=== PATIENT | male | born 1955 | race Caucasian/White ===

== ENCOUNTER 2024-05-07 08:11 | Outpatient (OUT) | payer MEDICARE, SELFPAY ==
--- NOTE | 2024-05-07 08:26 | XR_ITS ---
[address] [address] Patient Name: NATALYA PAREDES MRN: [id number] date: 1955 Sex: M Assigned Patient Location: RAD Current Patient Location: LAB Accession/Order Number: [id number] Exam Date: 05/07/2024 08:28 Report Date: 05/07/2024 13:18 At the request of: ELLYN TRIPP Procedure: XR knee LT 3V PROCEDURE: XR knee LT 3V COMPARISON: None. HISTORY: Post Traumatic Osteoarthritis Left Knee FINDINGS: BONES:No acute fracture or dislocation. Minimal osteoarthropathy with marginal osteophyte formation. SOFT TISSUES:Negative. No visible soft tissue swelling. EFFUSION:None visible. OTHER: Negative. XR/XR knee LT 3V IMPRESSION: Minimal osteoarthritis Electronically authenticated by: MECHE SANCHEZ Date: 05/07/2024 13:18
== END 2024-05-07 08:12 | disposition home or self-care (01) ==
LOC: RAD 08:15
PROVIDERS: PCP Internal Medicine; Visit Provider Internal Medicine
DX: M17.32 Unilateral post-traumatic osteoarthritis, left knee (principal)
CPT/HCPCS: 73562

== ENCOUNTER 2024-05-09 06:33 | Outpatient (OUT) | payer MEDICARE, SELFPAY ==
[2024-05-09 07:44] LABS: Creatinine Urine Random 120.08 mg/dL (20.00-300.00); Microalbum Creatinine Ratio Ur 117.4 mg/g (0.0-29.9); Microalbumin Urine Random 14.1 mg/dL (<=30.0)
[2024-05-09 07:53] LABS: Albumin Level 2.5 g/dL (3.4-5.0); Anion Gap 14.9; BUN Creatinine Ratio 18.1; Calcium 8.2 mg/dL (8.5-10.1); Carbon Dioxide 22.8 mmol/L (21.0-32.0); Chloride 108 mmol/L (98-107); Cholesterol 229 mg/dL (<=200); Estimated GFR (African America 24 (>=60); Estimated GFR (Non-African Ame 20 (>=60); Glucose 219 mg/dL (74-106); HDL Cholesterol 46 mg/dL (40-60); Phosphorus 4.3 mg/dL (2.6-4.7); Potassium 3.7 mmol/L (3.5-5.1); Sodium 142 mmol/L (136-145); Thyroid Stimulating Hormone 5.954 uIU/mL (0.358-3.740); Triglycerides 243 mg/dL (<=150); VLDL CHOLESTEROL 48.6 mg/dL
[2024-05-10 14:11] LABS: C-Peptide, Serum 3.2 ng/mL (1.1-4.4)
== END 2024-05-09 06:34 | disposition home or self-care (01) ==
LOC: LAB 06:34
PROVIDERS: PCP Internal Medicine; Visit Provider Internal Medicine
DX: E78.2 Mixed hyperlipidemia (principal); E11.65 Type 2 diabetes mellitus with hyperglycemia; Z79.4 Long term (current) use of insulin; I10 Essential (primary) hypertension; E55.9 Vitamin D deficiency, unspecified
CPT/HCPCS: 36415; 80061; 80069; 82043; 82306; 82570; 84443; 84681

== ENCOUNTER 2024-10-03 08:51 | Outpatient (OUT) | payer MEDICARE, SELFPAY ==
--- NOTE | 2024-10-03 08:54 | US_ITS ---
[place] [id number] Patient Name: NATALYA PAREDES MRN: [id number] date: 1955 Sex: M Assigned Patient Location: Current Patient Location: Accession/Order Number: [id number] Exam Date: 10/03/2024 09:00 Report Date: 10/04/2024 04:57 At the request of: YAA SALINAS Procedure: US renal bladder EXAMINATION: US renal bladder HISTORY: Kidney Disease, BPH With Obstruction COMPARISON: CT abdomen pelvis 10/23/2019 TECHNIQUE: Ultrasound examination was performed of the kidneys and urinary bladder. FINDINGS: RIGHT KIDNEY: No evidence of pelvocaliectasis, mass, or calculi. Normal parenchymal echogenicity. No significant cortical thinning. Color Doppler demonstrates blood flow within the kidney. Kidney: 8.9 x 5.4 x 5.7 cm LEFT KIDNEY: No evidence of pelvocaliectasis, mass, or calculi. Normal parenchymal echogenicity. No significant cortical thinning. Color Doppler demonstrates blood flow within the kidney. Kidney: 9.6 x 5.4 x 6.1 cm. BLADDER: No visible wall thickening, mass, or calculi. Post void residual: 15 mL. URETERAL JETS: Visualized bilaterally. OTHER: Large heterogeneous and irregular prostate, at least 7.1 x 4.8 x 5.1 cm. US/US renal bladder IMPRESSION: 1. Normal ultrasound appearance of the kidneys. 2. Large heterogeneous prostate protruding into the bladder. Electronically authenticated by: NURYS KHAN Date: 10/04/2024 04:57
--- OUTSIDE RECORDS SUMMARY | 2024-10-03 08:57 | XMS_ITS | CCD ---
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 include: ? Inability to get an erection. ? Lack of enough hardness of the erection to allow penetration. ? Loss of erection before sex is finished. What are the causes? This condition may be caused by: ? Physical causes, such as: ? Artery problems. This may include heart disease, high blood pressure, atherosclerosis, and diabetes. ? Hormonal problems, such as low testosterone. ? Obesity. ? Nerve problems. This may include back or pelvic injuries, multiple sclerosis, Parkinson's disease, spinal cord injury, and stroke. ? Certain medicines, such as: ? Pain relievers. ? Antidepressants. ? Blood pressure medicines and water pills (diuretics). ? Cancer medicines. ? Antihistamines. ? Muscle relaxants. ? Lifestyle factors, such as: ? Use of drugs such as marijuana, cocaine, or opioids. ? Excessive use of alcohol. ? Smoking. ? Lack of physical activity or exercise. ? Psychological causes, such as: ? Anxiety or stress. ? Sadness or depression. ? Exhaustion. ? Fear about sexual performance. ? Guilt. What are the signs or symptoms? Symptoms of this condition include: ? Inability to get an erection. ? Lack of enough hardness of the erection to allow penetration. ? Loss of the erection before sex is finished. ? Sometimes having normal erections, but with frequent unsatisfactory episodes. ? Low sexual satisfaction in either partner due to erection problems. ? A curved penis occurring with erection. The curve may cause pain, or the penis may be too curved to allow for intercourse. ? Never having nighttime or morning erections. How is this diagnosed? This condition is often diagnosed by: ? Performing a physical exam to find other diseases or specific problems with the penis. ? Asking you detailed questions about the problem. ? Doing tests, such as: ? Blood tests to check for diabetes mellitus or high cholesterol, or to measure hormone levels. ? Other tests to check for underlying health conditions. ? An ultrasound exam to check for scarring. ? A test to check blood flow to the penis. ? Doing a sleep study at home to measure nighttime erections. How is this treated? This condition may be treated by: ? Medicines, such as: ? Medicine taken by mouth to help you achieve an erection (oral medicine). ? Hormone replacement therapy to replace low testosterone levels. ? Medicine that is injected into the penis. Your health care provider may instruct you how to give yourself these injections at home. ? Medicine that is delivered with a short applicator tube. The tube is inserted into the opening at the tip of the penis, which is the opening of the urethra. A tiny pellet of medicine is put in the urethra. The pellet dissolves and enhances erectile function. This is also called MUSE (medicated urethral system for erections) therapy. ? Vacuum pump. This is a pump with a ring on it. The pump and ring are placed on the penis and used to create pressure that helps the penis become erect. ? Penile implant surgery. In this procedure, you may receive: ? An inflatable implant. This consists of cylinders, a pump, and a reservoir. The cylinders can be inflated with a fluid that helps to create an erection, and they can be deflated after intercourse. ? A semi-rigid implant. This consists of two silicone rubber rods. The rods provide some rigidity. They are also flexible, so the penis can both curve downward in its normal position and become straight for sexual intercourse. ? Blood vessel surgery to improve blood flow to the penis. During this procedure, a blood vessel from a different part of the body is placed into the penis to allow blood to flow around (bypass) damaged or blocked blood vessels. ? Lifestyle changes, such as exercising more, losing weight, and quitting smoking. Follow these instructions at home: Medicines ? Take qcgu-izn-covdcmx and prescription medicines only as told by your health care provider. Do not increase the dosage without first discussing it with your health care provider. ? If you are using self-injections, do injections as directed by your health care provider. Make sure you avoid any veins that are on the surface of the penis. After giving an injection, apply pressure to the injection site for 5 minutes. ? Talk to your health care provider about how to prevent headaches while taking ED medicines. These medicines may cause a sudden headache due to the increase in blood flow in your body. General instructions ? Exercise regularly, as directed by your health care provider. Work with your health care provider to lose weight, if needed. ? Do not use any products that contain nicotine or tobacco. These products include cig (more content not included)... [facility] 11-30-2023 Screens [id number]. 00TIFF Normal [facility] Screens [id number]. 00TIFF [facility] Urology Office/Clinic Noteon 11-30-2023 Urology Office/Clinic Note Chief Complaint 1 month F/U with P[facility] HPI Staff 1 month F/U with [facility] Previous DX; BPH, * Started Tamsulosin 0.4 mg qPM, He still taking he is not sure if it is working, Elevated PSA, Microhematuria, Gross, hematuria PSA's 16 - 13.0 03/17/22 - 6.01 10/06/22 - 5.5 & 45%, PSAD 0.05 IPSS 10 ENRIQUE 4 PVR 70 Dysuria: _denies Incomplete bladder emptying: most times Hematuria: _denies visible blood Frequency: 3-4x daily Urgency: denies Nocturia: 3x nightly Stream: occasionally hesitation, normal stream Leaking: denies Post void dripping: yes Wearing pads/ Depends: denies Urge incontinence: denies Stress incontinence: denies Incontinence without Sensory Awareness: _denies Abdominal pain: _a little bit on right side occasionally Flank pain: denies Sexual complaints: _denies History of Present Illness Tests reviewed: reviewed UA, PVR I have reviewed the previous health record information and history for this patient from Dr. Aguilar. I have reviewed and verified the staff HPI to be accurate for this encounter. Review of Systems PHQ Score Initial Depression Screen Score: 0 SCORE ROS - Provider Constitutional: denies weight loss, denies hot flashes. Eyes: denies eye problems. Gastrointestinal: denies nausea, denies vomiting. Cardiovascular: denies chest pain or angina. Integumentary: no dryness Musculoskeletal: denies musculoskeletal symptoms. ENMT: denies otolaryngeal symptoms. Respiratory: no shortness of breath. Heme/Lymph: denies easy bleeding tendency, denies easy bruising tendency. Psychiatric: no confusion, no anxiety. Genitourinary: See HPI. Physical Exam Vitals & Measurements BP: 124/84 HT: 70 in HT: 179 cm WT: 104 kg WT: 228.8 lb BMI: 32.46 General Appearance: alert, no distress, well nourished, well developed male. Genitourinary: Flank Pain: none. Bladder: nonpalpable. Assessment/Plan 68 year old male with hx BPH with LUTS, elevated PSA, microscopic hematuria, and gross hematuria 6 wks after starting blood thinners. Here for follow up. 1. BPH with obstruction/lower urinary tract symptoms (N40.1: Benign prostatic hyperplasia with lower urinary tract symptoms) S/p TURP 11/10/[address] Toribio - benign CT 09/09/2022 there is moderate prominence of the prostate. there is some nodularity noted along the base of the bladder, which may represent a bladder tumor or the enlarged prostate. cystoscopic correlation suggested. S/P Cysto 01/17/23 - severe bilobar hypertrophy L>>R. Significant L lateral lobe intravesical protrusion 3-4cm. IPSS 10 (10), QoL (3). UA today negative for infection. PVR today 70 (108)cc Did not previously restart Finasteride due to pt's PCP concern for SEs. Recommended pt to restart Tamsulosin at prior OV. States he has been taking this, no SE, but still has bothersome urinary sxs, improved from prior. Re-discussed restarting Finasteride to shrink prostate over time vs procedures (TURP vs simple prostatectomy given large intravesical component and volume). Re-discussed possible SEs. Low dose daily cialis also discussed. Pt states he would like to try medication to shrink prostate. Discussed how tamsulosin and finasteride work better together. -Begin Finasteride 5 mg daily. Risks/benefits discussed -Cont Tamsulosin 0.4 mg daily. -Timed voids 2. Erectile dysfunction (N52.9: Male erectile dysfunction, unspecified) ENRIQUE 4. Discussed options for ED, including oral medications, erection pumps, MUSE intraurethral pellet, intracorporal injection therapy, and surgical options. Advised pt Cialis would help with ED and BPH sxs. Discussed ED sxs require more on-demand effect, so Cialis is recommended prn rather than low dose daily based on his compliants. Discussed the medication side effects, and the patient will monitor closely for these, as well as for symptom improvement. If severe side effects occur, the medication should be stopped and the office notified. -Begin Cialis 10mg prn. Max 20 mg 3. Elevated PSA (R97.20: Elevated prostate specific antigen [PSA]) PSA 10/21/16 - 13.0 03/17/22 - 6.01 10/06/22 - 5.5 & 45%, PSAD 0.05 Prostate MRI 12/13/22 - Volume 108cc. No evidence of prostate malignancy. BPH changes. States PCP checks PSA. Advised pt to have this checked annually. No fam hx of prostate ca. -Cont routine prostate cancer screening with PCP given neg mri and improved PSA per above 4. Microhematuria (R31.29: Other microscopic hematuria) S/p Cysto 01/17/23. Micro UA 10/05/22 - 0-3 RBCs. Cytology 10/05/22 - neg. UA today shows trace-lysed blood. Denies visible blood. Advised pt trace blood is not concerning. No indication for further workup given prior was neg. -Cont routine UAs 5. Gross hematuria (R31.0: Gross hematuria) 6 wks after starting blood thinners (recent LLE DVT, on for 6 mths at least). S/p Cysto 01/17/23 - No bladder mass on cysto, likely due to large intravesical prostate Micro UA 10/05/22 - 0-3 RBCs. Cytology (more content not included)... [facility] Comment on above: Result Comment: Elec tronically Signed By: Betty Aguilar MD\.br\Date and Time Signed: 11/30/23 12:08 EST\.br\Electronically Co-Signed By: Maureen Becker\.br\Date and Time Co-Signed: 11/30/23 11:37 EST [place] 10-13-2023 Screens [id number]#1.0 0TIFF [facility] Ambulatory Visit Summaryon 1 12-13-2022 Ambulatory Visit Summary REGGIE DAILEY NATALYA Crump :1955 Visit Date:10/12/2023 Ambulatory Visit Instructions Your Diagnosis BPH with obstruction/lower urinary tract symptoms Elevated PSA Microhematuria Tests Performed Urnls Dip Stick Auto w/o Microscopy POC 70024 Your Care Team Attending Physician - Betty Aguilar MD Primary Care Physician - AYSSINE BECKER MD Referring Physician - Betty Aguilar MD This Is Your Medications List tamsulosin (tamsulosin 0.4 mg Cap) Contact prescribing physician if questions or concerns amlodipine (amLODIPine 5 mg Tab) insulin isophane-insulin regular (ReliOn/Novolin 70/30 subcutaneous suspension) torsemide (torsemide 20 mg Tab) [Image Removed: STOP]Stop taking these medications finasteride (finasteride 5 mg Tab) Procedures Performed Cystoscopy (01/17/2023), CEIOL - Cataract extraction and insertion of intraocular lens (06/15/2022), TURP - Transurethral resection of prostate (11/10/2016). Discharge Vitals Blood Pressure 136/84 Height 179 cm Height 70 in Weight 104 kg Weight 228.8 lb BMI 32.46 What to do next Scheduled Follow-Up Appointments Tuesday 10:30 AM EST With: Betty Aguilar MD Where: [facility] Patient Educationon 10-12-20 23 Patient Education Urology Benign Prostatic Hyperplasia Benign prostatic hyperplasia (BPH) is an enlarged prostate gland that is caused by the normal aging process. The prostate may get bigger as a man gets older. The condition is not caused by cancer. The prostate is a walnut-sized gland that is involved in the production of semen. It is located in front of the rectum and below the bladder. The bladder stores urine. The urethra carries stored urine out of the body. An enlarged prostate can press on the urethra. This can make it harder to pass urine. The buildup of urine in the bladder can cause infection. Back pressure and infection may progress to bladder damage and kidney (renal) failure. What are the causes? This condition is part of the normal aging process. However, not all men develop problems from this condition. If the prostate enlarges away from the urethra, urine flow will not be blocked. If it enlarges toward the urethra and compresses it, there will be problems passing urine. What increases the risk? This condition is more likely to develop in men older than 50 years. What are the signs or symptoms? Symptoms of this condition include: ? Getting up often during the night to urinate. ? Needing to urinate frequently during the day. ? Difficulty starting urine flow. ? Decrease in size and strength of your urine stream. ? Leaking (dribbling) after urinating. ? Inability to pass urine. This needs immediate treatment. ? Inability to completely empty your bladder. ? Pain when you pass urine. This is more common if there is also an infection. ? Urinary tract infection (UTI). How is this diagnosed? This condition is diagnosed based on your medical history, a physical exam, and your symptoms. Tests will also be done, such as: ? A post-void bladder scan. This measures any amount of urine that may remain in your bladder after you finish urinating. ? A digital rectal exam. In a rectal exam, your health care provider checks your prostate by putting a lubricated, gloved finger into your rectum to feel the back of your prostate gland. This exam detects the size of your gland and any abnormal lumps or growths. ? An exam of your urine (urinalysis). ? A prostate specific antigen (PSA) screening. This is a blood test used to screen for prostate cancer. ? An ultrasound. This test uses sound waves to electronically produce a picture of your prostate gland. Your health care provider may refer you to a specialist in kidney and prostate diseases (urologist). How is this treated? Once symptoms begin, your health care provider will monitor your condition (active surveillance or watchful waiting). Treatment for this condition will depend on the severity of your condition. Treatment may include: ? Observation and yearly exams. This may be the only treatment needed if your condition and symptoms are mild. ? Medicines to relieve your symptoms, including: ? Medicines to shrink the prostate. ? Medicines to relax the muscle of the prostate. ? Surgery in severe cases. Surgery may include: ? Prostatectomy. In this procedure, the prostate tissue is removed completely through an open incision or with a laparoscope or robotics. ? Transurethral resection of the prostate (TURP). In this procedure, a tool is inserted through the opening at the tip of the penis (urethra). It is used to cut away tissue of the inner core of the prostate. The pieces are removed through the same opening of the penis. This removes the blockage. ? Transurethral incision (TUIP). In this procedure, small cuts are made in the prostate. This lessens the prostate's pressure on the urethra. ? Transurethral microwave thermotherapy (TUMT). This procedure uses microwaves to create heat. The heat destroys and removes a small amount of prostate tissue. ? Transurethral needle ablation (TUNA). This procedure uses radio frequencies to destroy and remove a small amount of prostate tissue. ? Interstitial laser coagulation (ILC). This procedure uses a laser to destroy and remove a small amount of prostate tissue. ? Transurethral electrovaporization (TUVP). This procedure uses electrodes to destroy and remove a small amount of prostate tissue. ? Prostatic urethral lift. This procedure inserts an implant to push the lobes of the prostate away from the urethra. Follow these instructions at home: ? Take xhgh-tlj-upayhwl and prescription medicines only as told by your health care provider. ? Monitor your symptoms for any changes. Contact your health care provider with any changes. ? Avoid drinking large amounts of liquid before going to bed or out in public. ? Avoid or reduce how much caffeine or alcohol you drink. ? Give yourself time when you urinate. ? Keep all follow-up visits. This is important. Contact a health care provider if: ? You have unexplained back pain. ? Your symptoms do not get better with treatment. ? You develop side effects from the medicine (more content not included)... [facility] Urology Office/Clinic Noteon 10-12-2023 Urology Office/Clinic Note Chief Complaint S/p tp Cysto HPI Staff Pt last seen in our office 10/05/22 by KIERA as a new pt. DX: Elevated PSA, Microscopic Hematuria, Abnormal CT & BPH. S/P TURP 11/10/16 by DLS NEG Cytology 10/05/22 PSA F/T 10/06/22- 5.5 & 45% MRI Prostate 12/13/22 S/P Cysto 01/17/23 No issues with this *Pt started on Finasteride & Tamsulosin therapy at this time, Only took these for a week ,His PCP told him not to take it because he was worried side effects of these medication IPSS 10 ENRIQUE N/A Dysuria: denies Incomplete bladder emptying: denies Hematuria: denies visible blood Frequency: every couple hours Urgency: denies Nocturia: 2-3x nightly Stream: denies hesitation, normal stream Leaking: denies Post void dripping: denies Wearing pads/ Depends: denies Urge incontinence: denies Stress incontinence: denies Incontinence without Sensory Awareness: denies Abdominal pain: Right side pain started 2 months ago, off and on pain Flank pain: denies Sexual complaints: N/A History of Present Illness Tests reviewed: reviewed UA, PVR I have reviewed the previous health record information and history for this patient from CLARISA White and Dr. Aguilar I have reviewed and verified the staff HPI to be accurate for this encounter. Review of Systems PHQ Score Initial Depression Screen Score: 0 SCORE ROS - Provider Constitutional: denies weight loss, denies hot flashes. Eyes: denies eye problems. Gastrointestinal: denies nausea, denies vomiting. Cardiovascular: denies chest pain or angina. Integumentary: no dryness Musculoskeletal: denies musculoskeletal symptoms. ENMT: denies otolaryngeal symptoms. Respiratory: no shortness of breath. Heme/Lymph: denies easy bleeding tendency, denies easy bruising tendency. Psychiatric: no confusion, no anxiety. Genitourinary: See HPI. Physical Exam Vitals & Measurements BP: 136/84 HT: 70 in HT: 179 cm WT: 104 kg WT: 228.8 lb BMI: 32.46 General Appearance: alert, no distress, well nourished, well developed male. Genitourinary: Flank Pain: none. Bladder: nonpalpable. Assessment/Plan 68 year old male with hx BPH with LUTS, elevated PSA, microscopic hematuria, and gross hematuria 6 wks ago after starting blood thinners (recent LLE DVT, on for 6 mths at least). Here for follow up 1. BPH with obstruction/lower urinary tract symptoms (N40.1: Benign prostatic hyperplasia with lower urinary tract symptoms) S/p TURP 11/10/[address] 09/09/2022 there is moderate prominence of the prostate. there is some nodularity noted along the base of the bladder, which may represent a bladder tumor or the enlarged prostate. cystoscopic correlation suggested. S/P Cysto 01/17/23 - severe bilobar hypertrophy L>>R. Significant L lateral lobe protrusion into bladder 3-4cm. IPSS 10 (9), QoL 3 (2). Gets up to void 2-3x/night. Has weak stream. PVR today 108cc Prescribed Finasteride and Tamsulosin at last cysto as pt was not a surgical candidate given blood clot in his leg and prostate size. However pt only took these meds for a few days as he was worried about SEs per PCP. Again, thoroughly discussed risks/benefits of meds. Pt forgot our prior discussion and now understands how finasteride can help shrink prostate over time and prevent need for surgery or at least opens his candidacy for less invasive surgeries. Pt agrees to try Tamsulosin for now. Will consider Cialis vs finasteride in the future pending results. -Begin Tamsulosin 0.4mg qPM. Risks/benefits discussed -Timed voids -Follow up in 2 months with PVR Ordered: Urnls Dip Stick Auto w/o Microscopy POC 88720 2. Elevated PSA (R97.20: Elevated prostate specific antigen [PSA]) PSA 10/21/16 - 13.0 03/17/22 - 6.01 10/06/22 - 5.5 & 45%, PSAD 0.05 Prostate MRI 12/13/22 - Volume 108cc. No evidence of prostate malignancy. BPH changes. States PCP checks PSA. Advised pt to have this checked annually. No fam hx of prostate ca. -Cont routine prostate cancer screening with PCP given neg mri and improved PSA per above Ordered: Urnls Dip Stick Auto w/o Microscopy POC 57117 3. Microhematuria (R31.29: Other microscopic hematuria) S/p Cysto 01/17/23. Micro UA 10/05/22 - 0-3 RBCs. Cytology 10/05/22 - neg. UA today shows trace-lysed blood. Denies visible blood. Advised pt trace blood is not concerning. recent workup neg -Cont routine UAs Ordered: Urnls Dip Stick Auto w/o Microscopy POC 92391 4. Gross hematuria (R31.0: Gross hematuria) 6 wks ago after starting blood thinners (recent LLE DVT, on for 6 mths at least). Here for follow up s/p Cysto 01/17/23 - No bladder mass on cysto, likely due to large intravesical prostate Micro UA 10/05/22 - 0-3 RBCs. Cytology 10/05/22 - neg. Prior CT AP neg for stones or hydro No longer on AC given resolution of DVT (incited by accident). No recurrence of gross hematuria -Cont monitoring Orders: tamsulosin, 0.4 mg = 1 cap(s), Oral, qPM, Stop if you get di (more content not included)... [facility] Comment on above: Result Comment: Elec tronically Signed By: Betty Aguilar MD\.br\Date and Time Signed: 10/12/23 12:06 EST\.br\Electronically Co-Signed By: Maureen Becker\.br\Date and Time Co-Signed: 10/12/23 10:35 EST ECHOCARDIO M/2D COMPLETEon 0 03-09-2023 ECHOCARDIO M/2D COMPLETE Patient: NATALYA PAREDES Exam Date: 03/09/2023 : 1955 Gender:M Ordering : DR YASSINE BECKER M.D. Admission #: [id number] Family : Order #: [id number] CLICK HERE TO VIEW EXAM ECHOCARDIOGRAM REPORT PROCEDURE: CARDIO PULMONARY ECHOCARDIO M/2D COMP INDICATIONS: Congenital stenosis of IVC, Chronic heart failure, localized swelling of lower extremities COMPARISON: None. DESCRIPTION: COMPLETE ECHOCARDIOGRAM Real-time transthoracic echocardiography with 2D, M-mode, spectral and color flow Doppler performed. QUALITY: Technical quality was good. LEFT VENTRICLE: Normal chamber size. Thickened septal wall. Global left ventricular systolic function is normal. LV EF: Estimated left ventricular ejection fraction is 60% DIASTOLIC: Diastolic function is indeterminate. ATRIAL SEPTUM: LEFT ATRIUM: Normal chamber size. RIGHT ATRIUM: Mild dilatation. RIGHT VENTRICLE: Normal chamber size. Normal right ventricular systolic function. TRICUSPID VALVE: Normal mobility and thickness. No stenosis with trivial regurgitation. Cannot assess right-sided pressures due to lack of measurable tricuspid regurgitation. MITRAL VALVE: Normal mobility and thickness. No evidence of mitral valve stenosis. Trivial mitral regurgitation. AORTIC VALVE: Normal trileaflet appearance. Mildly calcified aortic valve. Normal leaflet mobility. No evidence of aortic valve stenosis. Trivial aortic regurgitation. AORTIC ROOT: Normal diameter and appearance. PULMONIC VALVE: Normal thickness and mobility. Normal with Trivial regurgitation. PERICARDIUM: No evidence of pericardial effusion. IVC: Collapses with inspirations. PLEURA: CONCLUSION: 1. Normal ventricular systolic function. LVEF is 60%. 2. No significant valvular dysfunction. 3. Cannot assess right-sided pressures due to lack of measurable tricuspid regurgitation. 4. No pericardial effusion. Adult Echocardiography Procedure Report Left Ventricle LVEDD (3.7 - 5.6 cm): 4.66 cm LVESD (2.2 - 4.0 cm): 3.37 cm LVIVS thickness (0.6 - 1.2 cm): 1.39 cm LVPW thickness (0.5 - 1.0 cm): 1.03 cm e': 0.12 m/s E - e': 6.00 LVOT Max Gradient: 2.66 mm[Hg] Peak Velocity (LVOT): 0.82 m/s Mean Velocity (LVOT): 0.57 m/s LVOT Diameter 2.23 cm Left Ventricular Ejection Fraction: 60 % Left Atrium LA Volume Index (2D A2C): 53.56 ml, 53.56 ml Left Atrium Systolic Dimension: 3.98 cm Mitral Valve MV E to A Ratio: 0.85 Mitral Valve A-Wave Peak Velocity: 0.85 m/s Mitral Valve E-Wave Peak Velocity: 0.73 m/s Right Ventricle RV Internal Diastolic Dimension: 3.68 cm Aorta AO Root Diam: 3.24 cm Ascending Ao Diam: 3.37 cm Aortic Valve AoV Area (Peak Gregory): 2.92 cm2, 2.92 cm2 AoV Area (VTI): 3.03 cm2, 3.03 cm2 Peak Velocity(Antegrade Flow): 1.09 m/s Peak Gradient(Antegrade Flow): 4.78 mm[Hg] Mean Velocity(Antegrade Flow): 0.78 m/s Mean Gradient(Antegrade Flow): 2.73 mm[Hg] Velocity Time Integral: 29.63 cm Tricuspid Valve Peak Velocity (Regurgitant Flow): 1.90 m/s, 1.74 m/s, 1.39 m/s Peak Velocity: 0.50 m/s Pulmonic Valve Mean Gradient: 2.70 mm[Hg], 2.94 mm[Hg] Mean Velocity: 0.75 m/s, 0.80 m/s Peak Velocity: 1.33 m/s, 1.28 m/s Peak Gradient: 7.03 mm[Hg], 6.56 mm[Hg] Right Atrium Right Atrium Systolic Pressure: 39.16 ml, 39.16 ml Dictated by: Branden Edwards M.D. on 03/09/2023 at 16:56 Approved by: Branden Edwards M.D. on 03/09/2023 at 16:59 Normal [facility] US venous duplex UE LTon US venous duplex UE LT [facility] [place] [address] Ultrasound Report Signed Patient: Natalya Paredes JR MR#: [id number] : 1955 Acct:[id number] Age/Sex: 67 / M ADM Date: 01/15/23 Loc: ER Room: Type: [facility] ER Attending Dr: Ordering Provider: Chavez Lei PA-C Date of Service: 01/15/23 US/US venous duplex UE LT: arm pain andswelling Copies to: Chavez Lei PA-C VENOUS DUPLEX LEFT UPPER EXTREMITY INDICATION: Left forearm pain and redness. PROCEDURE: Color-flow duplex scanning is used to interrogate the deep venous system of the Left upper extremity. Compression, Color flow and Augmentation were all normal for the deep and superficial veins of the left arm. In the contralateral limb, the subclavian vein appears with color flow and augmentation. No thrombus was identified. US/US venous duplex UE LT IMPRESSION: NO EVIDENCE OF DVT OR SVT IN THE LEFT ARM. Impression dictated by: Angel Gomez MD01/17/2023 9:45 AM Dictation Location: [place] [address] Tech: Brittanie Green Transcribed By: [facility] 01/17/23944 Dictated By: Angel Gomez MD 01/17/23943 Signed By: 01/17/23944 Normal [facility] Alanine aminotransferase [En zymatic activity/volume] in Serum or PlasmaOrdered By: Filemon Carrizales on 01-06-2023 ALT [Catalytic activity/Vol] 11 U/L 7-52 [facility] Albumin [Mass/volume] in Ser um or Plasma by Bromocresol green (BCG) dye binding methoOrdered By: Filemon Carrizales on 01-06-2023 Albumin BCG dye [Mass/Vol] 3.7 g/dL 3.5-5.7 [facility] Alkaline phosphatase [Enzyma tic activity/volume] in Serum or PlasmaOrdered By: Filemon Carrizales on 01-06-2023 ALP [Catalytic activity/Vol] 80 U/L 34-104 [facility] Aspartate aminotransferase [ Enzymatic activity/volume] in Serum or PlasmaOrdered By: Filemon Carrizales on 01-06-2023 AST [Catalytic activity/Vol] 23 U/L 13-39 [facility] Automated erythrocytes count in urine sediment (number/area)Ordered By: Filemon Carrizales on 01-06-2023 RBC Auto (Urine sed) [#/Area] 3-4 [HPF] 0-4 [facility] Automated leukocytes count i n urine sediment (number/area)Ordered By: Filemon Carrizales on 01-06-2023 WBC Auto (Urine sed) [#/Area] 3-4 [HPF] 0-4 [facility] Basic Metabolic Panelon 12-22 Anion gap [Moles/Vol] 14.2 mmol/L Normal 6.0-15.0 [facility] Comment on above: Performed By: #### B MP, LIPASE, HEPATIC, CBC #### [facility] [address] [place] [address] Calcium [Mass/Vol] 9.3 mg/dL Normal 8.6-10.3 [facility] Comment on above: Performed By: #### B MP, LIPASE, HEPATIC, CBC #### [facility] [address] Chloride [Moles/Vol] 102 mmol/L Normal 98-107 [facility] Comment on above: Performed By: #### B MP, LIPASE, HEPATIC, CBC #### [facility] [address] CO2 [Moles/Vol] 26.4 mmol/L Normal 21.0-31.0 [facility] Comment on above: Performed By: #### B MP, LIPASE, HEPATIC, CBC #### [facility] [address] Creatinine [Mass/Vol] 1.97 mg/dL High 0.70-1.30 [facility] Comment on above: Performed By: #### B MP, LIPASE, HEPATIC, CBC #### [facility] [address] Creatinine Clr Calc Pharmacy 44.41 [facility] Comment on above: Performed By: #### B MP, LIPASE, HEPATIC, CBC #### [address] GFR/1.73 sq M.predicted MDRD (S/P/Bld) [Vol rate/Area] 36.564 mL/min/{1.73_m2} [facility] Comment on above: Performed By: #### B MP, LIPASE, HEPATIC, CBC #### [facility] [address] Glucose [Mass/Vol] 117 mg/dL High 74-109 [facility] Comment on above: Result Comment: [place] Glucose Reference Range is dependent on time and content of last meal. Glucose of more than 200 mg/dL in a nonstressed, ambulatory subject supports the diagnosis of Diabetes Mellitus. ADA recommended reference range Performed By: #### B MP, LIPASE, HEPATIC, CBC #### [facility] [address] [place] [address] [place] Potassium [Moles/Vol] 3.6 mmol/L Normal 3.5-5.1 [facility] Comment on above: Performed By: #### B MP, LIPASE, HEPATIC, CBC #### [facility] [address] Sodium [Moles/Vol] 139 mmol/L Normal 136-145 [facility] Comment on above: Performed By: #### B MP, LIPASE, HEPATIC, CBC #### [facility] [address] Urea nitrogen [Mass/Vol] 26 mg/dL High 7-25 [facility] Comment on above: Performed By: #### B MP, LIPASE, HEPATIC, CBC #### [facility] [address] Basophils Auto (Bld) [#/Vol] Ordered By: Filemon Carrizales on 01-06-2023 Basophils (Bld) [#/Vol] 0.2 10*3/uL 0.0-0.2 [facility] Basophils/100 WBC Auto (Bld) Ordered By: Filemon Carrizales on 01-06-2023 Basophils/100 WBC (Bld) 1.3 % . [facility] Bilirubin Test strip Ql (U)O rdered By: Filemon Carrizales on 01-06-2023 Bilirubin Ql (U) Negative Negative [facility] Bilirubin.direct [Mass/volum e] in Serum or PlasmaOrdered By: Filemon Carrizales on 01-06-2023 Bilirubin.direct [Mass/Vol] 0.10 mg/dL 0.03-0.18 [facility] Bilirubin.total [Mass/volume ] in Serum or PlasmaOrdered By: Filemon Carrizales on 01-06-2023 Bilirubin [Mass/Vol] 0.4 mg/dL 0.3-1.0 [facility] CT abdomen pelvis w conon CT abdomen pelvis w con [facility] [place] [address] [place] [address] CT Scan Report Signed Patient: Natalya Paredes JR MR#: [id number] : 1955 Acct:[id number] Age/Sex: 67 / M ADM Date: 01/06/23 Loc: ER Room: Type: [facility] ER Attending Dr: Copies to: Filemon Carrizales DO Ordering Provider: Filemon Carrizales DO Date of Service: 01/06/23 CT/CT abdomen pelvis w con: Abdominal Pain CT abdomen and pelvis withcontrast TECHNIQUE: Axial imaging with 2-D reconstruction.90 cc of Isovue-300. The CT exam was performed using one or more the following dose reduction techniques: Automated exposure control, adjustment of the MA and/or Kv according to patient size, or use of the iterative reconstruction technique. COMPARISON:MRI of the prostate gland demonstrating BPH. History: Abdominal pain for 2 weeks. Vomiting. Prior appendectomy. Concern for diverticulitis. LIMITATIONS: None LOWER THORAX Unremarkable LIVER: Unremarkable GALLBLADDER: Mild gallbladder distention. No calcified stone. No wall thickening or adjacent inflammation. BILE DUCTS: No dilatation SPLEEN: Unremarkable PANCREAS: Unremarkable ADRENAL GLANDS: Unremarkable KIDNEYS:Unremarkable AORTA: No abdominal aortic aneurysm identified. RETROPERITONEUM: No significant retroperitoneal abnormalities identified. MESENTERY:Unremarkable SMALL BOWEL: The small bowel loops are nondistended. APPENDIX: Appendectomy changes identified. COLON: Unremarkable URINARY BLADDER: Diffuse urinary bladder wall thickening. Consider underdistention versus chronic obstructive changes. Cannot exclude cystitis. REPRODUCTIVE SYSTEM: Reproductive structures are unremarkable. PNEUMOPERITONEUM: None PERITONEAL FLUID:None BONY STRUCTURES: L2-3 advanced degeneration. ABDOMINAL WALL: Unremarkable Fluid-filled mildly distended stomach. No gastric wall thickening. CT/CT abdomen pelvis w con IMPRESSION: Mildly distended fluid-filled stomach. Nondistended small bowel loops. No diverticulitis. Benign prosthetic hypertrophy. Urinary bladder wall thickening. Consider underdistention versus chronic obstructive changes. Cystitis not excluded. Impression dictated by: René Jackson M.D.01/06/2023 11:44 AM Dictation Location: [place] [address] Transcribed By: [facility] 01/06/23 1144 Dictated By: René Jackson DO 01/06/23 1137 Signed By: 01/06/23 1144 [facility] Calcium [Mass/volume] in Ser um or PlasmaOrdered By: Filemon Carrizales on 01-06-2023 Calcium [Mass/Vol] 9.3 mg/dL 8.6-10.3 [facility] Carbon dioxide, total [Moles /volume] in Serum or PlasmaOrdered By: Filemon Carrizales on 01-06-2023 CO2 [Moles/Vol] 26.4 mmol/L 21.0-31.0 [facility] Chloride [Moles/volume] in S don or PlasmaOrdered By: Filemon Carrizales on 01-06-2023 Chloride [Moles/Vol] 102 mmol/L 98-107 [facility] Color Auto (U)Ordered By: Clarisa Carrizales on 01-06-2023 Color (U) Yellow Yellow [facility] Complete Blood Count Auto Di ffon 01-06-2023 Basophils (Bld) [#/Vol] 0.2 10*3/uL Normal 0.0-0.2 [facility] Comment on above: Result Comment: PERF ORMED BY: [place] [address] PATHOLOGIST SOCIAL WORK MSW YAKOV MEZA M.D. Performed By: #### B MP, LIPASE, HEPATIC, CBC #### [facility] [address] Basophils/100 WBC (Bld) 1.3 % Normal . [facility] Comment on above: Performed By: #### B MP, LIPASE, HEPATIC, CBC #### [facility] [address] Eosinophils (Bld) [#/Vol] 0.9 10*3/uL High 0.0-0.45 [facility] Comment on above: Performed By: #### B MP, LIPASE, HEPATIC, CBC #### [facility] [address] [place] [address] [place] Eosinophils/100 WBC (Bld) 7.3 % Normal . [facility] Comment on above: Performed By: #### B MP, LIPASE, HEPATIC, CBC #### [facility] [address] Erythrocyte distribution width (RBC) [Ratio] 16.7 % High 12.0-14.8 [facility] Comment on above: Performed By: #### B MP, LIPASE, HEPATIC, CBC #### [address] Hematocrit (Bld) [Volume fraction] 40.7 % Normal 38.8-50.0 [facility] Comment on above: Performed By: #### B MP, LIPASE, HEPATIC, CBC #### [address] Hemoglobin (Bld) [Mass/Vol] 13.7 g/dL Normal 13.0-17.0 [facility] Comment on above: Performed By: #### B MP, LIPASE, HEPATIC, CBC #### [address] Lymphocytes (Bld) [#/Vol] 2.2 10*3/uL Normal 1.00-4.8 [facility] Comment on above: Performed By: #### B MP, LIPASE, HEPATIC, CBC #### [address] Lymphocytes/100 WBC (Bld) 17.8 % Normal . [facility] Comment on above: Performed By: #### B MP, LIPASE, HEPATIC, CBC #### [address] MCH (RBC) [Entitic mass] 27.3 pg Low 27.5-35.2 [facility] Comment on above: Performed By: #### B MP, LIPASE, HEPATIC, CBC #### [address] MCV (RBC) [Entitic vol] 81.0 fL Low 83.5-101 [facility] Comment on above: Performed By: #### B MP, LIPASE, HEPATIC, CBC #### [address] Mean Corpuscular HGB Conc 33.7 g/dL Normal 32.5-35.6 [facility] Comment on above: Performed By: #### B MP, LIPASE, HEPATIC, CBC #### [address] Monocytes (Bld) [#/Vol] 0.8 10*3/uL Normal 0.0-0.8 [facility] Comment on above: Performed By: #### B MP, LIPASE, HEPATIC, CBC #### [facility] [address] Monocytes/100 WBC (Bld) 21.73 % High 0.00-20.00 [facility] Comment on above: Result Comment: For adults in ED, MDW > 20.0 may be associated with a higher risk of sepsis during the first 12 hrs of hospital admission Performed By: #### B MP, LIPASE, HEPATIC, CBC #### [facility] [address] Monocytes/100 WBC (Bld) 6.4 % Normal . [facility] Comment on above: Performed By: #### B MP, LIPASE, HEPATIC, CBC #### [facility] [address] Neutrophils (Bld) [#/Vol] 8.3 10*3/uL High 1.8-7.7 [facility] Comment on above: Performed By: #### B MP, LIPASE, HEPATIC, CBC #### [facility] [address] Neutrophils/100 WBC (Bld) 67.2 % Normal . [facility] Comment on above: Performed By: #### B MP, LIPASE, HEPATIC, CBC #### [facility] [address] [place] [address] [place] NRBC% 0.1 /100{WBC} Normal 0-0.5 [facility] Comment on above: Performed By: #### B MP, LIPASE, HEPATIC, CBC #### [facility] [address] Platelet mean volume (Bld) [Entitic vol] 8.7 fL Normal 6.6-10.1 [facility] Comment on above: Performed By: #### B MP, LIPASE, HEPATIC, CBC #### [facility] [address] [place] [address] [place] Platelets (Bld) [#/Vol] 268 10*3/uL Normal 150-450 [facility] Comment on above: Performed By: #### B MP, LIPASE, HEPATIC, CBC #### [facility] [address] [place] [address] RBC (Bld) [#/Vol] 5.03 10*6/uL Normal 3.90-5.60 [facility] Comment on above: Performed By: #### B MP, LIPASE, HEPATIC, CBC #### [address] WBC (Bld) [#/Vol] 12.3 10*3/uL High 4.1-10.5 [facility] Comment on above: Performed By: #### B MP, LIPASE, HEPATIC, CBC #### [address] Creatinine [Mass/volume] in Serum or PlasmaOrdered By: Filemon Carrizales on 01-06-2023 Creatinine [Mass/Vol] 1.97 mg/dL 0.70-1.30 [facility] Dipstick and Microscopicon 0 01-06-2023 Appearance (U) Clear Normal Clear [facility] Comment on above: Order Comment: Name Collection Type:: Clean-Voided Midstream Performed By: #### A DDONUAPLUS #### [address] Bacteria,Urine None Seen Normal None Seen [facility] Comment on above: Order Comment: Name Collection Type:: Clean-Voided Midstream Performed By: #### A DDONUAPLUS #### [place] [address] [place] Bilirubin,Urine Negative Normal Negative [facility] Comment on above: Order Comment: Name Collection Type:: Clean-Voided Midstream Performed By: #### A DDONUAPLUS #### [address] Color (U) Yellow Normal Yellow [facility] Comment on above: Order Comment: Name Collection Type:: Clean-Voided Midstream Performed By: #### A DDONUAPLUS #### [address] [place] [address] [place] Glucose Ql (U) 250 mg/dL High Normal [facility] Comment on above: Order Comment: Name Collection Type:: Clean-Voided Midstream Performed By: #### A DDONUAPLUS #### [place] [address] [place] Hyaline Casts,Urine 0-8 Normal 0-8 [facility] Comment on above: Order Comment: Name Collection Type:: Clean-Voided Midstream Result Comment: PERF ORMED BY: [place] [address] PATHOLOGIST SOCIAL WORK MSW YAKOV MEZA M.D. Performed By: #### A DDONUAPLUS #### [address] Ketones Ql (U) Negative Normal Negative [facility] Comment on above: Order Comment: Name Collection Type:: Clean-Voided Midstream Performed By: #### A DDONUAPLUS #### [place] [address] [place] Leukocyte esterase Test strip Ql (U) Negative Normal Negative [facility] Comment on above: Order Comment: Name Collection Type:: Clean-Voided Midstream Performed By: #### A DDONUAPLUS #### [place] [address] [place] Nitrite,Urine Negative Normal Negative [facility] Comment on above: Order Comment: Name Collection Type:: Clean-Voided Midstream Performed By: #### A DDONUAPLUS #### [place] [address] [place] Occult Blood,Urine Trace High Negative [facility] Comment on above: Order Comment: Name Collection Type:: Clean-Voided Midstream Result Comment: PERF ORMED BY: [place] [address] PATHOLOGIST SOCIAL WORK MSW YAKOV MEZA M.D. Performed By: #### A DDONUAPLUS #### [facility] [address] [place] [address] [place] pH (U) 6.5 [pH] Normal 5.0-9.0 [facility] Comment on above: Order Comment: Name Collection Type:: Clean-Voided Midstream Performed By: #### A DDONUAPLUS #### [address] Protein,Urine >=1000 High Negative [facility] Comment on above: Order Comment: Name Collection Type:: Clean-Voided Midstream Performed By: #### A DDONUAPLUS #### [address] RBC,Urine 3-4 Normal 0-4 [facility] Comment on above: Order Comment: Name Collection Type:: Clean-Voided Midstream Performed By: #### A DDONUAPLUS #### [address] Specificy [place],Urine 1.018 Normal 1.001-1.030 [facility] Comment on above: Order Comment: Name Collection Type:: Clean-Voided Midstream Performed By: #### A DDONUAPLUS #### [address] Squamous Epithelial Cell,Urine 1-2 Normal 0-2 [facility] Comment on above: Order Comment: Name Collection Type:: Clean-Voided Midstream Performed By: #### A DDONUAPLUS #### [address] Urobilinogen,Urine Normal Normal Normal [facility] Comment on above: Order Comment: Name Collection Type:: Clean-Voided Midstream Performed By: #### A DDONUAPLUS #### [place] [address] [place] WBC,Urine 3-4 Normal 0-4 [facility] Comment on above: Order Comment: Name Collection Type:: Clean-Voided Midstream Performed By: #### A DDONUAPLUS #### [address] Eosinophils Auto (Bld) [#/Vo l]Ordered By: Filemon Carrizales on 01-06-2023 Eosinophils (Bld) [#/Vol] 0.9 10*3/uL 0.0-0.45 [facility] Eosinophils/100 WBC Auto (Bl d)Ordered By: Filemon Carrizales on 01-06-2023 Eosinophils/100 WBC (Bld) 7.3 % . [facility] Erythrocyte distribution wid th Auto (RBC) [Ratio]Ordered By: Filemon Carrizales on 01-06-2023 Erythrocyte distribution width (RBC) [Ratio] 16.7 % 12.0-14.8 [facility] Globulin Calc (S) [Mass/Vol] Ordered By: Filemon Carrizales on 01-06-2023 Globulin (S) [Mass/Vol] 3.8 g/dL [facility] Glucose [Mass/volume] in Ser um or PlasmaOrdered By: Filemon Carrizales on 01-06-2023 Glucose [Mass/Vol] 117 mg/dL 74-109 [facility] Comment on above: ADA recommended refe rence rangeRandom Glucose Reference Range is dependent on time and content of last meal. Glucose of more than 200 mg/dL in a nonstressed, ambulatory subject supports the diagnosis of Diabetes Mellitus. Hematocrit Auto (Bld) [Volum e fraction]Ordered By: Filemon Carrizales on 01-06-2023 Hematocrit (Bld) [Volume fraction] 40.7 % 38.8-50.0 [facility] Hemoglobin [Mass/volume] in BloodOrdered By: Filemon Carrizales on 01-06-2023 Hemoglobin (Bld) [Mass/Vol] 13.7 g/dL 13.0-17.0 [facility] Hepatic Panelon 01-06-2023 Albumin [Mass/Vol] 3.7 g/dL Normal 3.5-5.7 [facility] Comment on above: Performed By: #### B MP, LIPASE, HEPATIC, CBC #### [facility] [address] Albumin/Globulin [Mass ratio] 1.0 {ratio} Normal [facility] Comment on above: Performed By: #### B MP, LIPASE, HEPATIC, CBC #### [facility] [address] [place] [address] [place] ALP [Catalytic activity/Vol] 80 U/L Normal 34-104 [facility] Comment on above: Performed By: #### B MP, LIPASE, HEPATIC, CBC #### [facility] [address] ALT [Catalytic activity/Vol] 11 U/L Normal 7-52 [facility] Comment on above: Performed By: #### B MP, LIPASE, HEPATIC, CBC #### [facility] [address] AST [Catalytic activity/Vol] 23 U/L Normal 13-39 [facility] Comment on above: Performed By: #### B MP, LIPASE, HEPATIC, CBC #### [facility] [address] Bilirubin [Mass/Vol] 0.4 mg/dL Normal 0.3-1.0 [facility] Comment on above: Performed By: #### B MP, LIPASE, HEPATIC, CBC #### [address] Bilirubin,Indirect 0.3 mg/dL Normal [facility] Comment on above: Performed By: #### B MP, LIPASE, HEPATIC, CBC #### [facility] [address] Bilirubin.indirect [Mass/Vol] 0.10 mg/dL Normal 0.03-0.18 [facility] Comment on above: Performed By: #### B MP, LIPASE, HEPATIC, CBC #### [facility] [address] Globulin (S) [Mass/Vol] 3.8 g/dL Normal [facility] Comment on above: Performed By: #### B MP, LIPASE, HEPATIC, CBC #### [facility] [address] Protein [Mass/Vol] 7.5 g/dL Normal 6.4-8.9 [facility] Comment on above: Performed By: #### B MP, LIPASE, HEPATIC, CBC #### [address] Ketones Auto test strip (U) [Mass/Vol]Ordered By: Filemon Carrizales on 01-06-2023 Ketones (U) [Mass/Vol] Negative Negative [facility] Laboratory - Chemistry and C hemistry - challengeOrdered By: Filemon Carrizales on 01-06-2023 GFR/1.73 sq M.predicted MDRD (S/P/Bld) [Vol rate/Area] 36.564 mL/min/{1.73_m2} [facility] Laboratory - UrinalysisOrder ed By: Filemon Carrizales on 01-06-2023 Hyaline casts LM Ql (Urine sed) 0-8 [LPF] 0-8 [facility] Leukocytes [#/volume] correc philippe for nucleated erythrocytes in Blood by Automated counOrdered By: Filemon Carrizales on 01-06-2023 WBC corrected for nucl RBC Auto (Bld) [#/Vol] 12.3 10*3/uL 4.1-10.5 [facility] Lipaseon 01-06-2023 Lipase [Catalytic activity/Vol] 48.0 U/L Normal 11.0-82.0 [facility] Comment on above: Result Comment: PERF ORMED BY: [place] [address] PATHOLOGIST SOCIAL WORK MSW YAKOV MEZA M.D. Performed By: #### B MP, LIPASE, HEPATIC, CBC #### [place] [address] [place] Lipase [Enzymatic activity/v olume] in Serum or PlasmaOrdered By: Filemon Carrizales on 01-06-2023 Lipase [Catalytic activity/Vol] 48.0 U/L 11.0-82.0 [facility] Lymphocytes Auto (Bld) [#/Vo l]Ordered By: Filemon Carrizales on 01-06-2023 Lymphocytes (Bld) [#/Vol] 2.2 10*3/uL 1.00-4.8 [facility] Lymphocytes/100 WBC Auto (Bl d)Ordered By: Filemon Carrizales on 01-06-2023 Lymphocytes/100 WBC (Bld) 17.8 % . [facility] MCH Auto (RBC) [Entitic mass ]Ordered By: Filemon Carrizales on 01-06-2023 MCH (RBC) [Entitic mass] 27.3 pg 27.5-35.2 [facility] MCHC Auto (RBC) [Mass/Vol]Or dered By: Filemon Carrizales on 01-06-2023 MCHC (RBC) [Mass/Vol] 33.7 g/dL 32.5-35.6 [facility] MCV Auto (RBC) [Entitic vol] Ordered By: Filemon Carrizales on 01-06-2023 MCV (RBC) [Entitic vol] 81.0 fL 83.5-101 [facility] Monocyte distribution width [Entitic volume] in Blood by AutomatedOrdered By: Filemon Carrizales on 01-06-2023 Monocyte distribution width Auto (Bld) [Entitic vol] 21.73 % 0.00-20.00 [facility] Comment on above: For adults in ED, MD W > 20.0 may be associated with a higher risk of sepsis during the first 12 hrs of hospital admission Monocytes Auto (Bld) [#/Vol] Ordered By: Filemon Carrizales on 01-06-2023 Monocytes (Bld) [#/Vol] 0.8 10*3/uL 0.0-0.8 [facility] Monocytes/100 WBC Auto (Bld) Ordered By: Filemon Carrizales on 01-06-2023 Monocytes/100 WBC (Bld) 6.4 % . [facility] Neutrophils Auto (Bld) [#/Vo l]Ordered By: Filemon Carrizales on 01-06-2023 Neutrophils (Bld) [#/Vol] 8.3 10*3/uL 1.8-7.7 [facility] Neutrophils/100 WBC Auto (Bl d)Ordered By: Filemon Carrizaels on 01-06-2023 Neutrophils/100 WBC (Bld) 67.2 % . [facility] Nitrite Test strip Ql (U)Ord ered By: Filemon Carrizales on 01-06-2023 Nitrite Ql (U) Negative Negative [facility] No Panel InformationOrdered By: Filemon Carrizales on 01-06-2023 Pharmacy Creatinine Clearance (Chem 44.41 [facility] Nucleated erythrocytes [Pres ence] in Blood by Automated countOrdered By: Filemon Carrizales on 01-06-2023 Nucleated RBC Auto Ql (Bld) 0.1 /100{WBC} 0-0.5 [facility] Platelet mean volume Auto (B ld) [Entitic vol]Ordered By: Filemon Carrizales on 01-06-2023 Platelet mean volume (Bld) [Entitic vol] 8.7 fL 6.6-10.1 [facility] Platelets Auto (Bld) [#/Vol] Ordered By: Filemon Carrizales on 01-06-2023 Platelets (Bld) [#/Vol] 268 10*3/uL 150-450 [facility] Potassium [Moles/volume] in Serum or PlasmaOrdered By: Filemon Carrizales on 01-06-2023 Potassium [Moles/Vol] 3.6 mmol/L 3.5-5.1 [facility] Protein Auto test strip (U) [Mass/Vol]Ordered By: Filemon Carrizales on 01-06-2023 Protein (U) [Mass/Vol] mg/dL Negative [facility] Protein [Mass/volume] in Ser um or PlasmaOrdered By: Filemon Carrizales on 01-06-2023 Protein [Mass/Vol] 7.5 g/dL 6.4-8.9 [facility] RBC Auto (Bld) [#/Vol]Ordere d By: Filemon Carrizales on 01-06-2023 RBC (Bld) [#/Vol] 5.03 10*6/uL 3.90-5.60 [facility] Serum or plasma albumin/glob ulin mass ratioOrdered By: Filemon Carrizales on 01-06-2023 Albumin/Globulin [Mass ratio] 1.0 {ratio} [facility] Serum or plasma anion gap de terminationOrdered By: Filemon Carrizales on 01-06-2023 Anion gap [Moles/Vol] 14.2 mmol/L 6.0-15.0 [facility] Serum or plasma non-glucuron idated bilirubin measurement (mass/volume)Ordered By: Filemon Carrizales on 01-06-2023 Bilirubin.indirect [Mass/Vol] 0.3 mg/dL [facility] Sodium [Moles/volume] in Ser um or PlasmaOrdered By: Filemon Carrizales on 01-06-2023 Sodium [Moles/Vol] 139 mmol/L 136-145 [facility] Specific gravity Auto test s trip (U) [Rel density]Ordered By: Filemon Carrizales on 01-06-2023 Specific gravity (U) [Rel density] 1.018 1.001-1.030 [facility] Squamous epithelial cells de tection in urine sediment by light microscopyOrdered By: Filemon Carrizales on 01-06-2023 Epithelial cells.squamous LM Ql (Urine sed) 1-2 [HPF] 0-2 [facility] Urea nitrogen [Mass/volume] in Serum or PlasmaOrdered By: Filemon Carrizales on 01-06-2023 Urea nitrogen [Mass/Vol] 26 mg/dL 7-25 [facility] Urine bacteria detection by automated methodOrdered By: Filemon Carrizales on 01-06-2023 Bacteria Auto Ql (U) None seen None Seen [facility] Urine clarity by refractomet ry automatedOrdered By: Filemon Carrizales on 01-06-2023 Clarity Refractometry automated (U) Clear Clear [facility] Urine glucose measurement by automated test strip (mass/volume)Ordered By: Filemon Carrizales on 01-06-2023 Glucose Auto test strip (U) [Mass/Vol] 250 mg/dL Normal [facility] Urine hemoglobin detection b y automated test stripOrdered By: Filemon Carrizales on 01-06-2023 Hemoglobin Auto test strip Ql (U) Trace Negative [facility] Urine leukocyte esterase det ection by automated test stripOrdered By: Filemon Carrizales on 01-06-2023 Leukocyte esterase Auto test strip Ql (U) Negative Negative [facility] Urobilinogen Auto test strip (U) [Mass/Vol]Ordered By: Filemon Carrizales on 01-06-2023 Urobilinogen (U) [Mass/Vol] Normal mg/dL Normal [facility] WBC Auto (Bld) [#/Vol]Ordere d By: Filemon Carrizales on 01-06-2023 WBC (Bld) [#/Vol] 12.3 10*3/uL 4.1-10.5 [facility] pH Auto test strip (U)Ordere d By: Filemon Sofie on 01-06-2023 pH (U) 6.5 [pH] 5.0-9.0 [facility] CTA CHEST WO W CONon 023 CTA CHEST WO W CON EXAM: CTA CHEST WO W CON TECHNIQUE: CT angiogram with contrast performed of the chest including multi planar reformatted images and maximum intensity projection images. Multiple 3-D volume renderings were related. Dose reduction techniques were achieved by using automated exposure control and/or adjustment of mA and/or kV according to patient size and/or use of iterative reconstruction technique. HISTORY: SHORTNESS OF BREATH COMPARISON: 10/23/2019 FINDINGS: Neck and Axilla: No lower neck or axillary lymphadenopathy. Mediastinum and Yolanda: No hilar or mediastinal lymphadenopathy. The esophagus is grossly unremarkable without dilatation or gross mass lesion. Heart and Major Vessels: The heart appears unremarkable for size without pericardial effusion. The aorta and central pulmonary arteries are unremarkable for size.No pulmonary arterial filling defect to suggest acute pulmonary embolism. Lung Gee: Moderate bilateral dependent atelectasis. No acute consolidation. Pleural Cavities: No significant pleural effusion. No pneumothorax. Upper Abdomen: No acute abnormality identified. Chest Wall: No acute abnormality. ___ IMPRESSION: No evidence for acute pulmonary embolism. No acute pulmonary consolidation. Electronically authenticated by: CARL DIMAS Date: 2023-01-01 22:00 Normal [facility] BNPon 01-01-2023 Natriuretic peptide B (Bld) [Mass/Vol] 872.0 pg/mL Normal <=900.0 [facility] Comment on above: Performed By: #### B PATTERN DEVELOPER, HSTROPN #### [facility] [address] [place] [address] Dr. Leeanna Hurtado CBC AUTO DIFFon 01-01-2023 BASO # 0.1 103/ul Normal 0.0-0.1 [facility] Comment on above: Performed By: #### C BC #### [facility] [address] [place] [address] Dr. Leeanna Hurtado Basophils/100 WBC (Bld) 0.7 % Normal 0.2-2.0 [facility] Comment on above: Performed By: #### C BC #### [facility] [address] [address] [address] Leeanna Hurtado EO # 0.9 103/ul Critically high 0.0-0.7 [facility] Comment on above: Performed By: #### C BC #### [facility] [address] [address] [address] Leeanna Hurtado Eosinophils/100 WBC (Bld) 6.9 % Normal 0.9-7.0 [facility] Comment on above: Performed By: #### C BC #### [facility] [address] [place] [address] Dr. Leeanna Hurtado Erythrocyte distribution width (RBC) [Ratio] 15.4 % Critically high 11.0-15.0 [facility] Comment on above: Performed By: #### C BC #### [facility] [address] [place] [address] Dr. Leeanna Hurtado Hematocrit (Bld) [Volume fraction] 38.6 % Critically low 42.0-54.0 [facility] Comment on above: Performed By: #### C BC #### [facility] [address] [place] [address] Dr. Leeanna Hurtado Hemoglobin (Bld) [Mass/Vol] 13.1 g/dL Critically low 14.0-18.0 [facility] Comment on above: Performed By: #### C BC #### [facility] [address] [place] [address] Dr. Leeanna Hurtado IG # 0.05 10e3/ul Critically high 0.00-0.03 [facility] Comment on above: Performed By: #### C BC #### [facility] [address] [place] [address] Dr. Leeanna Hurtado IG % 0.4 % Normal 0.0-0.5 [facility] Comment on above: Performed By: #### C BC #### [facility] [address] [place] [address] Dr. Leeanna Hurtado LYMPH # 3.7 103/ul Normal 1.2-3.8 [facility] Comment on above: Performed By: #### C BC #### [facility] [address] [place] [address] Dr. Leeanna Hurtado Lymphocytes/100 WBC (Bld) 29.6 % Normal 20.5-60.0 [facility] Comment on above: Performed By: #### C BC #### [facility] [address] [place] [address] Dr. Leeanna Hurtado MANUAL DIFF REQ NO Normal [facility] Comment on above: Performed By: #### C BC #### [facility] [address] [place] [address] Dr. Leeanna Hurtado MCH (RBC) [Entitic mass] 27.5 pg Normal 25.9-34.0 [facility] Comment on above: Performed By: #### C BC #### [facility] [address] [place] [address] Dr. Leeanna Hurtado MCHC (RBC) [Mass/Vol] 33.9 g/dL Normal 29.9-35.2 [facility] Comment on above: Performed By: #### C BC #### [facility] [address] [place] [address] Dr. Leeanna Hurtado MCV (RBC) [Entitic vol] 80.9 fL Normal 80.0-94.0 [facility] Comment on above: Performed By: #### C BC #### [facility] [address] [place] [address] Dr. Leeanna Hurtado MONO # 0.8 103/ul Normal 0.3-0.8 [facility] Comment on above: Performed By: #### C BC #### [facility] [address] [place] [address] Dr. Leeanna Hurtado Monocytes/100 WBC (Bld) 6.6 % Normal 1.7-12.0 [facility] Comment on above: Performed By: #### C BC #### [facility] [address] [place] [address] Dr. Leeanna Hurtado NEUT # 6.9 103/ul Critically high 1.4-6.5 [facility] Comment on above: Performed By: #### C BC #### [facility] [address] [place] [address] Dr. Leeanna Hurtado Neutrophils/100 WBC (Bld) 55.8 % Normal 43.0-75.0 [facility] Comment on above: Performed By: #### C BC #### [facility] [address] [place] [address] Dr. Leeanna Hurtado Platelet mean volume (Bld) [Entitic vol] 9.8 fL Normal 9.5-13.5 [facility] Comment on above: Performed By: #### C BC #### [facility] [address] [place] [address] Dr. Leeanna Hurtado PLT 267 103/ul Normal 150-450 [facility] Comment on above: Performed By: #### C BC #### [facility] [address] [place] [address] Dr. Leeanna Hurtado RBC 4.77 106/ul Normal 4.70-6.10 [facility] Comment on above: Performed By: #### C BC #### [facility] [address] [place] [address] Dr. Leeanna Hurtado WBC 12.3 103/ul Critically high 4.0-11.0 [facility] Comment on above: Performed By: #### C BC #### [facility] [address] [place] [address] Dr. Leeanna Hurtado PROF CHEM 8 (BAS METB)on Anion gap [Moles/Vol] 12.0 mmol/L Normal [facility] Comment on above: Performed By: #### B MP #### [facility] [address] [place] [address] Dr. Leeanna Hurtado Calcium [Mass/Vol] 8.7 mg/dL Normal 8.5-10.1 [facility] Comment on above: Performed By: #### B MP #### [facility] [address] [place] [address] Dr. Leeanna Hurtado Chloride [Moles/Vol] 108 mmol/L Critically high 98-107 [facility] Comment on above: Performed By: #### B MP #### [facility] [address] [address] [address] Leeanna Hurtado CO2 [Moles/Vol] 25.5 mmol/L Normal 21.0-32.0 [facility] Comment on above: Performed By: #### B MP #### [facility] [address] [address] [address] Leeanna Hurtado Creatinine [Mass/Vol] 1.67 mg/dL Critically high 0.70-1.30 [facility] Comment on above: Performed By: #### B MP #### [facility] [address] [address] [address] Leeanna Hurtado EGFR-AF SING[place]OREAN 50 mL/min/1.73m2 Critically low >=60 [facility] Comment on above: Performed By: #### B MP #### [facility] [address] [address] [address] Leeanna Hurtado EGFR-NON AF [place]AN 41 mL/min/1.73m2 Critically low >=60 [facility] Comment on above: Performed By: #### B MP #### [facility] [address] [address] [address] Leeanna Hurtado Glucose [Mass/Vol] 105 mg/dL Normal 74-106 [facility] Comment on above: Performed By: #### B MP #### [facility] [address] [address] [address] Leeanna Hurtado Potassium [Moles/Vol] 3.5 mmol/L Normal 3.5-5.1 [facility] Comment on above: Performed By: #### B MP #### [facility] [address] [address] [address] Leeanna Hurtado Sodium [Moles/Vol] 142 mmol/L Normal 136-145 [facility] Comment on above: Performed By: #### B MP #### [facility] [address] [address] [address] Leeanna Hurtado Urea nitrogen [Mass/Vol] 22.0 mg/dL Critically high 7.0-18.0 [facility] Comment on above: Performed By: #### B MP #### [facility] [id number] eLeanna Hurtado Urea nitrogen/Creatinine [Mass ratio] 13.2 mg/mg Normal [facility] Comment on above: Performed By: #### B MP #### [facility] [id number] Leeanna Hurtado TROPONIN, HIGH SENSITIVITYon 01-01-2023 HSTROP 53.6 pg/mL Normal 4.0-76.1 [facility] Comment on above: Result Comment: CUT- OFF POINTS HAVE BEEN ESTABLISHED BASED ON THE FOURTH UNIVERSAL DEFINITIONS OF MYOCARDIAL INFARCTION. THE UPPER REFERENCE LIMIT (URL) OF TROPONIN, DEFINED THE 99TH PERCENTILE OF cTnI DISTRIBUTION IN A REFERENCE POPULATION, HAS BEEN CONFIRMED THE DECISION THRESHOLD FOR RI DIAGNOSIS. Performed By: #### B PATTERN DEVELOPER, HSTROPN #### [facility] [address] [address] [address] Leeanna Hurtado US Venous, Unilat, Lower Ext Lefton 12-21-2022 US Venous, Unilat, Lower Ext Left CLINICAL HISTORY: Left leg edema and lump for 2 months. COMPARISON: None. TECHNIQUE: The left lower extremity veins were evaluated with color Doppler, grayscale imaging, and spectral analysis while using compression and augmentation when possible. FINDINGS: Abnormal compression involving the left popliteal vein suggestive of DVT, with spontaneous flow. Otherwise evaluation of the left lower extremity veins from the thigh to the calf shows normal phasic flow, normal augmentation of the Doppler signal, and normal compression of the deep veins. There is no sonographic evidence for acute deep vein thrombosis in the left calf veins. No evidence for SVT. Subcutaneous edema. Limited sonographic evaluation of the area of lump is unremarkable. IMPRESSION: Nonocclusive DVT involving the left popliteal vein. No acute DVT of the left calf veins. Report reported and signed by Yassine Connolly on 12/21/2022 1058 Normal [facility] Creatinine (Bld) [Mass/Vol]O rdered By: Betty Aguilar on 12-13-2022 Creatinine [Mass/Vol] 2.2 mg/dL 0.6-1.3 [facility] Comment on above: ER/ESD physician is notified/shown all ISTAT results.Critical values may be confirmed by laboratory testing ifdeemed necessary by ER attending doctor. ISTAT XRay CREon 12-13-2022 Creatinine [Mass/Vol] 2.2 mg/dL High 0.6-1.3 [facility] Comment on above: Result Comment: ER/E SD physician is notified/shown all ISTAT results. Critical values may be confirmed by laboratory testing if deemed necessary by ER attending doctor. Performed By: #### I SCRE #### [facility] [address] [place] [address] Point of Care testing , ISTAT GFR ( 36 [facility] Comment on above: Result Comment: GFR estimated reference range: According to KDOQI guidelines, <60 ml/min/1.73m2 is sufficient to diagnose a patient with chronic kidney disease. PERFORMED BY: [place] [address] PATHOLOGIST SOCIAL WORK MSW YAKOV MEZA M.D. Performed By: #### I SCRE #### [address] Point of Care testing , ISTAT GFR (Non- Am 30 [facility] Comment on above: Performed By: #### I SCRE #### [address] Point of Care testing , MR prostate wo conon 023 MR prostate wo con [facility] [place] [address] [place] [address] MRI Report Signed Patient: Natalya Paredes JR MR#: [id number] : 1955 Acct:[id number] Age/Sex: 67 / M ADM Date: 12/13/22 Loc: MR Room: Type: [facility] Attending Dr: Betty Aguilar MD Copies to: Betty Aguilar MD Ordering Provider: Betty Aguilar MD Date of Service: 12/13/22 MR/MR prostate wo con: R97.20, N40.1 EXAMINATION: MR prostate wo con HISTORY: Elevated PSA. COMPARISON: NONE TECHNIQUE: Multiparametric imaging of the prostate gland was performed without IV contrast. FINDINGS: Examination is suboptimal due to motion. Prostate Dimensions: 5.6 x 4.7 x 7.9 cm Prostate Volume: 108mL Peripheral Zone: Heterogenous inT2 signal suggestive of prior prostatitis. No suspicious T2 or ADC map abnormality is identified to suggest prostate malignancy. Central/Transitional Zone: BPH changes with extension along the base of the urinary bladder. Seminal Vesicles: Unremarkable Neurovascular bundles: Unremarkable. Lymphadenopathy: No evidence of lymphadenopathy. Bladder: No focal lesion. Bowel: The visualized bowel is without acute abnormality. Peritoneal Cavity: No free fluid. Bones: No suspicious bony lesion. MR/MR prostate wo con IMPRESSION: No MRI evidence of prostate malignancy. BPH changes. Impression dictated by: Clifford Corley Jr., D.O.12/13/2022 4:24 PM Dictation Location: [place] [address] Transcribed By: [facility] 12/13/22 1624 Dictated By: Clifford Corley Jr, DO 12/13/22 1616 Signed By: 12/13/22 1624 Normal [facility] No Panel InformationOrdered By: Betty Aguilar on 12-13-2022 POC Estimated GFR 36 [facility] Comment on above: GFR estimated refere nce range: According to KDOQI guidelines, <60 ml/min/1.73m2 is sufficient to diagnose a patient with chronic kidney disease. POC Estimated GFR Non- Amer 30 [facility] URINALYSISOrdered By: Aj jessica on 10-05-2022 Bilirubin Ql (U) Negative (10/05/22 12:26 PM) Normal Negative [facility] UA Auto SS Clarity (U) Clear (10/05/22 12:26 PM) Normal Clear [facility] UA Auto SS Color (U) Yellow (10/05/22 12:26 PM) Normal Yellow [facility] UA Auto SS Epithelial cells.squamous LM.HPF (Urine sed) [#/Area] 0-2 /HPF Normal 0-2/HPF [facility] UA Aut o SS Glucose Test strip (U) [Mass/Vol] Negative (10/05/22 12:26 PM) Normal Negative [facility] UA Auto SS Hemoglobin Ql (U) Trace *ABN* (10/05/22 12:26 PM) Invalid Interpretation Code Negative [facility] UA Auto SS Ketones (U) [Mass/Vol] Negative (10/05/22 12:26 PM) Normal Negative [facility] UA Auto SS Rosamond.plasma/Rosamond. RBC (Bld) [Mass ratio] 0-3 /HPF Normal 0-3/HPF [facility] A uto SS Nitrite Ql (U) Negative (10/05/22 12:26 PM) Normal Negative [facility] UA Auto SS pH (U) 5.5 *NA* (10/05/22 12:26 PM) Invalid Interpretation Code 5.0 - 9.0 [facility]A Auto SS Protein (U) [Mass/Vol] 3+ *ABN* (10/05/22 12:26 PM) Invalid Interpretation Code Negative [facility] UA Auto SS Specific gravity (U) [Rel density] 1.020 *NA* (10/05/22 12:26 PM) Invalid Interpretation Code 1.005 - 1.030 [facility] UA Auto SS UA Spec Desc Random Urine (10/05/22 12:26 PM) Normal [facility] UA Auto SS Urobilinogen Qn (U) 0.8404715 {Ingrid'U}/dL Normal 0.0 - 1.0 EU/dL [facility] UA Auto SS WBC Auto Ql (U) Negative (10/05/22 12:26 PM) Normal Negative [facility] UA Auto SS WBC casts LM.LPF (Urine sed) [#/Area] 0-3 (10/05/22 12:26 PM) Normal [facility] UA Auto SS WBC LM.HPF (Urine sed) [#/Area] 0-5 /HPF Normal 0-5/HPF [facility] UA Auto SS LDL Chol, Directon 2 LDL Chol, Direct 102 mg/dL High <100 [facility] Comment on above: Performed By: #### L IPR, LDLDIR #### [facility] [place] [address] Electric Spot Welder: Alexandr Sandhu MD Lipid Profileon 09-10-2022 Cholesterol,LDL Normal 0-130 [facility] Comment on above: Result Comment: Calc ulation not valid for Triglyceride value greater than 400 mg/dL. Direct LDL reflexed LDL Guidelines: <100 Desirable 100-129 Near to/above Desirable 130-159 Borderline >159 Undesirable Direct (measured) LDL and calculated LDL are not interchangeable tests. Performed By: #### L IPR, LDLDIR #### [address] [id number] Electric Spot Welder: Alexandr Sandhu MD Cholesterol [Mass/Vol] 249 mg/dL High <200 [facility] Comment on above: Result Comment: Cholesterol Guidelines: <200 Desirable 200-240 Borderline >240 Undesirable Performed By: #### L IPR, LDLDIR #### [address] [id number] Electric Spot Welder: Alexandr Sandhu MD Cholesterol in HDL [Mass/Vol] 29 mg/dL Low >40 [facility] Comment on above: Result Comment: HDL Guidelines: <40 Undesirable 40-59 Borderline >59 Desirable Performed By: #### L IPR, LDLDIR #### [address] [address] Electric Spot Welder: Alexandr Sandhu MD Cholesterol.total/Mavis sterol in HDL [Mass ratio] 8.6 {ratio} High <5 [facility] Comment on above: Performed By: #### L IPR, LDLDIR #### [address] [address] Electric Spot Welder: Alexandr Sandhu MD Triglyceride [Mass/Vol] 514 mg/dL High <150 [facility] Comment on above: Result Comment: Triglyceride Guidelines: <150 Desirable 150-199 Borderline 200-499 High >499 Very high Based on AHA Guidelines for fasting triglyceride, July 2012. Performed By: #### L IPR, LDLDIR #### [address] [address] Electric Spot Welder: Alexandr Sandhu MD XR HIP 2-3 VW W PELVIS RIGHT on 09-10-2022 XR HIP 2-3 VW W PELVIS RIGHT EXAMINATION: ONE XRAY VIEW OF THE PELVIS AND TWO XRAY VIEWS RIGHT HIP 09/09/2022 11:07 pm COMPARISON: None. HISTORY: ORDERING SYSTEM PROVIDED HISTORY: hip pain TECHNOLOGIST PROVIDED HISTORY: hip pain FINDINGS: Negative for fracture or dislocation. No lytic lesions. Superior and inferior pubic rami are intact. No widening of the SI joints or the pubic symphysis. Negative for joint effusion. IMPRESSION: Unremarkable right hip Interpreted by: Sue Mcleod MD Signed by: Sue Mcleod MD 09/09/22 Final result Normal [facility] Basic Metabolic Profon 09-09 Anion gap [Moles/Vol] 17 mmol/L Normal 9-17 [facility] Comment on above: Performed By: #### C DP, IPF, BMP, BNP, TROPI #### [address] [address] Electric Spot Welder: Alexandr Sandhu MD Calcium [Mass/Vol] 9.3 mg/dL Normal 8.6-10.4 [facility] Comment on above: Performed By: #### C DP, IPF, BMP, BNP, TROPI #### [address] [address] Electric Spot Welder: Alexandr Sandhu MD Chloride [Moles/Vol] 100 mmol/L Normal 98-107 [facility] Comment on above: Performed By: #### C DP, IPF, BMP, BNP, TROPI #### [address] [address] Electric Spot Welder: Alexandr Sandhu MD CO2 [Moles/Vol] 22 mmol/L Normal 20-31 [facility] Comment on above: Performed By: #### C DP, IPF, BMP, BNP, TROPI #### [address] [address] Electric Spot Welder: Alexandr Sandhu MD Creatinine [Mass/Vol] 1.40 mg/dL High 0.70-1.20 [facility] Comment on above: Performed By: #### C DP, IPF, BMP, BNP, TROPI #### [facility] [employer] [address] [place] [id number] Electric Spot Welder: Alexandr Sandhu MD GFR/1.73 sq M.predicted among non-blacks MDRD (S/P/Bld) [Vol rate/Area] 55 mL/min/{1.73_m2} Low >60 [facility] Comment on above: Result Comment: Effective Jul 26, 2022 These results are not intended for use in patients <18 years of age. eGFR results are calculated without a race factor using the 2020 CKD-EPI equation. Careful clinical correlation is recommended, particularly when comparing to results calculated using previous equations. The CKD-EPI equation is less accurate in patients with extremes of muscle mass, extra-renal metabolism of creatine, excessive creatine ingestion, or following therapy that affects renal tubular secretion. Performed By: #### C DP, IPF, BMP, BNP, TROPI #### [facility] [employer] [address] [place] [id number] Electric Spot Welder: Alexandr Sandhu MD Glucose [Mass/Vol] 144 mg/dL High 70-99 [facility] Comment on above: Performed By: #### C DP, IPF, BMP, BNP, TROPI #### [facility] [employer] [address] [place] [address] Electric Spot Welder: Alexandr Sandhu MD Potassium [Moles/Vol] 3.9 mmol/L Normal 3.7-5.3 [facility] Comment on above: Performed By: #### C DP, IPF, BMP, BNP, TROPI #### [facility] [address] [place] [address] Electric Spot Welder: Alexandr Sandhu MD Sodium [Moles/Vol] 139 mmol/L Normal 135-144 [facility] Comment on above: Performed By: #### C DP, IPF, BMP, BNP, TROPI #### [facility] [address] [place] [address] Electric Spot Welder: Alexandr Sandhu MD Urea nitrogen [Mass/Vol] 36 mg/dL High 8-23 [facility] Comment on above: Performed By: #### C DP, IPF, BMP, BNP, TROPI #### [place] [address] Electric Spot Welder: Alexandr Sandhu MD Brain Natri. Peptideon 09-09 Natriuretic peptide B (Bld) [Mass/Vol] 847 pg/mL High <300 [facility] Comment on above: Result Comment: An age-independent cutoff point of 300 pg/ml has a 98% negative predictive value excluding acute heart failure. Performed By: #### C DP, IPF, BMP, BNP, TROPI #### [place] [address] Electric Spot Welder: Alexandr Sandhu MD CBC with Diffon 09-09-2022 Abs. Basophil 0.09 k/uL Normal 0.00-0.20 [facility] Comment on above: Performed By: #### C DP, IPF, BMP, BNP, TROPI #### [place] [address] Electric Spot Welder: Alexandr Sandhu MD Abs.Imm.Granulocyte 0.07 k/uL Normal 0.00-0.30 [facility] Comment on above: Performed By: #### C DP, IPF, BMP, BNP, TROPI #### [place] [address] Electric Spot Welder: Alexandr Sandhu MD Abs.Neutrophil (Seg) 9.38 k/uL High 1.50-8.10 [facility] Comment on above: Performed By: #### C DP, IPF, BMP, BNP, TROPI #### [address] [address] Electric Spot Welder: Alexandr Sandhu MD Basophils/100 WBC (Bld) 1 % Normal 0-2 [facility] Comment on above: Performed By: #### C DP, IPF, BMP, BNP, TROPI #### [address] [address] Electric Spot Welder: Alexandr Sandhu MD Eosinophils (Bld) [#/Vol] 0.35 10*3/uL Normal 0.00-0.44 [facility] Comment on above: Performed By: #### C DP, IPF, BMP, BNP, TROPI #### [address] [address] Electric Spot Welder: Alexandr Sandhu MD Eosinophils/100 WBC (Bld) 3 % Normal 1-4 [facility] Comment on above: Performed By: #### C DP, IPF, BMP, BNP, TROPI #### [place] [address] Electric Spot Welder: Alexandr Sandhu MD Erythrocyte distribution width (RBC) [Ratio] 15.0 % High 11.8-14.4 [facility] Comment on above: Performed By: #### C DP, IPF, BMP, BNP, TROPI #### [address] [address] Electric Spot Welder: Alexandr Sandhu MD Hematocrit (Bld) [Volume fraction] 39.8 % Low 40.7-50.3 [facility] Comment on above: Performed By: #### C DP, IPF, BMP, BNP, TROPI #### [address] [address] Electric Spot Welder: Alexandr Sandhu MD Hemoglobin (Bld) [Mass/Vol] 13.1 g/dL Normal 13.0-17.0 [facility] Comment on above: Performed By: #### C DP, IPF, BMP, BNP, TROPI #### [address] [address] Electric Spot Welder: Alexandr Sandhu MD Immature granulocytes/100 WBC (Bld) 1 % High 0 [facility] Comment on above: Performed By: #### C DP, IPF, BMP, BNP, TROPI #### [address] [address] Electric Spot Welder: Alexandr Sandhu MD Lymphocytes (Bld) [#/Vol] 2.04 10*3/uL Normal 1.10-3.70 [facility] Comment on above: Performed By: #### C DP, IPF, BMP, BNP, TROPI #### [address] [address] Electric Spot Welder: Alexandr Sandhu MD Lymphocytes/100 WBC (Bld) 16 % Low 24-43 [facility] Comment on above: Performed By: #### C DP, IPF, BMP, BNP, TROPI #### [address] [address] Electric Spot Welder: Alexandr Sandhu MD MCH (RBC) [Entitic mass] 29.0 pg Normal 25.2-33.5 [facility] Comment on above: Performed By: #### C DP, IPF, BMP, BNP, TROPI #### [address] [address] Electric Spot Welder: Alexandr Sandhu MD MCHC (RBC) [Mass/Vol] 32.9 g/dL Normal 28.4-34.8 [facility] Comment on above: Performed By: #### C DP, IPF, BMP, BNP, TROPI #### [address] [address] Electric Spot Welder: Alexandr Sandhu MD MCV (RBC) [Entitic vol] 88.1 fL Normal 82.6-102.9 [facility] Comment on above: Performed By: #### C DP, IPF, BMP, BNP, TROPI #### [address] [address] Electric Spot Welder: Alexandr Sandhu MD Monocytes (Bld) [#/Vol] 0.87 10*3/uL Normal 0.10-1.20 [facility] Comment on above: Performed By: #### C DP, IPF, BMP, BNP, TROPI #### [address] [address] Electric Spot Welder: Alexandr Sandhu MD Monocytes/100 WBC (Bld) 7 % Normal 3-12 [facility] Comment on above: Performed By: #### C DP, IPF, BMP, BNP, TROPI #### [address] [address] Electric Spot Welder: Alexandr Sandhu MD Neutrophil (Seg) 73 % High 36-65 [facility] Comment on above: Performed By: #### C DP, IPF, BMP, BNP, TROPI #### [address] [address] Electric Spot Welder: Alexandr Sandhu MD NRBC Automated 0.0 per 100 WBC Normal 0.0 [facility] Comment on above: Performed By: #### C DP, IPF, BMP, BNP, TROPI #### [address] [address] Electric Spot Welder: Alexandr Sandhu MD Platelet Count See Reflexed IPF Result Normal 138-453 [facility] Comment on above: Performed By: #### C DP, IPF, BMP, BNP, TROPI #### [address] [address] Electric Spot Welder: Alexandr Sandhu MD RBC (Bld) [#/Vol] 4.52 10*6/uL Normal 4.21-5.77 [facility] Comment on above: Performed By: #### C DP, IPF, BMP, BNP, TROPI #### [address] [address] Electric Spot Welder: Alexandr Sandhu MD RBC morphology finding Nom (Bld) ANISOCYTOSIS PRESENT Normal [facility] Comment on above: Performed By: #### C DP, IPF, BMP, BNP, TROPI #### [facility] [address] [place], [place] [id number] Electric Spot Welder: Alexandr Sandhu MD WBC (Bld) [#/Vol] 12.8 10*3/uL High 3.5-11.3 [facility] Comment on above: Performed By: #### C DP, IPF, BMP, BNP, TROPI #### [id number] [place] [address] Electric Spot Welder: Alexandr Sandhu MD Abs. Basophil 0.08 k/uL Normal 0.00-0.20 [facility] Comment on above: Performed By: #### P T, TROPI, CDP, CP #### [address] [place] [id number] ( Electric Spot Welder: Meche Ellis MD Abs.Imm.Granulocyte 0.06 k/uL Normal 0.00-0.30 [facility] Comment on above: Performed By: #### P T, TROPI, CDP, CP #### [address] [place] [address] Electric Spot Welder: Meche Ellis MD Abs.Neutrophil (Seg) 8.48 k/uL High 1.50-8.10 [facility] Comment on above: Performed By: #### P T, TROPI, CDP, CP #### [address] [place] [id number] Electric Spot Welder: Meche Ellis MD Basophils/100 WBC (Bld) 1 % Normal 0-2 [facility] Comment on above: Performed By: #### P T, TROPI, CDP, CP #### [address] [place] [address] Electric Spot Welder: Meche Ellis MD Eosinophils (Bld) [#/Vol] 0.37 10*3/uL Normal 0.00-0.44 [facility] Comment on above: Performed By: #### P T, TROPSANGEETHA Quintero, CP #### [address] [place], [place] [id number]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 tested with an alternative molecular assay. Negative results do not preclude SARS-CoV-2 infection and should not be used as the sole basis for patient management decisions. Fact sheet for Healthcare Providers: https://www.fda.gov/media/875494/download Fact sheet for Patients: https://www.fda.gov/media/034291/download Methodology: Isothermal Nucleic Acid Amplification Performed By: #### C OVRB ####[address] [place] [address] Lab Director: Alexandr Sandhu MD Troponinon 09-09-2022 Troponin, High Sens 26 ng/L High 0-22 [facility] Comment on above: Result Comment: High Sensitivity Troponin values cannot be compared with other Troponin methodologies. Patients with high levels of Biotin oral intake (i.e >5mg/day) may have falsely decreased Troponin levels. Samples collected within 8 hours of biotin intake may require additional information for diagnosis. Performed By: #### T ROPI #### [address] [place] [address] Electric Spot Welder: Alexandr Sandhu MD Troponin, High Sens 23 ng/L High 0-22 [facility] Comment on above: Result Comment: High Sensitivity Troponin values cannot be compared with other Troponin methodologies. Patients with high levels of Biotin oral intake (i.e >5mg/day) may have falsely decreased Troponin levels. Samples collected within 8 hours of biotin intake may require additional information for diagnosis. Performed By: #### C DP, IPF, BMP, BNP, TROPI ####[address] [place], [place] [id number] Lab Director: Alexandr Sandhu MD Troponin, High Sens 26 ng/L High 0-22 [facility] Comment on above: Result Comment: High Sensitivity Troponin values cannot be compared with other Troponin methodologies. Patients with high levels of Biotin oral intake (i.e >5mg/day) may have falsely decreased Troponin levels. Samples collected within 8 hours of biotin intake may require additional information for diagnosis. Performed By: #### T ROPI #### [address] [place] [address] Electric Spot Welder: Meche Ellis MD Troponin, High Sens 28 ng/L [facility] 022 [facility] Comment on above: Result Comment: High Sensitivity Troponin values cannot be compared with other Troponin methodologies. Patients with high levels of Biotin oral intake (i.e >5mg/day) may have falsely decreased Troponin levels. Samples collected within 8 hours of biotin intake may require additional information for diagnosis. Performed By: #### P T, TROPI, CDP, CP #### [address] [place] [address] Electric Spot Welder: Meche Ellis MD UA w/Reflex Cultureon 2021 Bilirubin, SemiQt,Ur Negative Normal NEG [facility] Comment on above: Performed By: #### U MICAO, KENDRA, UAX ####[address] [place] [address] Lab Director: Meceh Ellis MD Blood, Urine 1+ Abnormal NEG [facility] Comment on above: Performed By: #### U MICAO, KENDRA, UAX ####[address] , [place] 26[address] Lab Director: Meche Ellis MD Clarity (U) Clear Normal CLEAR [facility] Comment on above: Performed By: #### U MICAO, KENDRA, UAX ####[address] [place] [address] Lab Director: Meche Ellis MD Color (U) Yellow Normal YEL [facility] Comment on above: Performed By: #### U MICAO, KENDRA, UAX ####[address] , [place] 49[address] Lab Director: Meche Ellis MD Glucose Ql (U) Negative Normal NEG [facility] Comment on above: Performed By: #### U MICAO, KENDRA, UAX ####[address] [place] [address] Lab Director: Meche Ellis MD Ketones Ql (U) Negative Normal NEG [facility] Comment on above: Performed By: #### U MICAO, KENDRA, UAX ####[address] [place] [address] Lab Director: Meche Ellis MD Leukocyte esterase Test strip Ql (U) Negative Normal NEG [facility] Comment on above: Performed By: #### U MICAO, KENDRA, UAX ####[address] [place] [address] Lab Director: Meche Ellis MD Nitrite,Ur Negative Normal NEG [facility] Comment on above: Performed By: #### U MICAO, KENDRA, UAX ####[address] [place] [address] Lab Director: Meche Ellis MD PH,Ur 6.5 Normal 5.0-9.0 [facility] Comment on above: Performed By: #### U MICAO, KENDRA, UAX ####[address] [place] [address] [facility] Director: Meche Ellis MD Protein Ql (U) 2+ Abnormal NEG [facility] Comment on above: Performed By: #### U MICAO, KENDRA, UAX ####[address] [place] [address] [facility] Director: Meche Ellis MD Spec. [place],Ur 1.020 Normal 1.010-1.020 [facility] Comment on above: Performed By: #### U MICAO, KENDRA, UAX ####[address] [place] [address] lab Director: Meche Ellis MD Urobilinogen,Ur Normal Normal NORM [facility] Comment on above: Performed By: #### U MICAO, KENDRA, UAX ####[address] , [place] 9259[address] Lab Director: Meche Ellis MD Urinalysis,Microon 2 Epithelial cells LM Ql (Urine sed) 0 TO 2 Normal 0-5 [facility] Comment on above: Performed By: #### U MICAO, KENDRA, UAX ####[address] , [facility]83 [facility] Director: Meche Ellis MD Urine RBC's 0 TO 2 Normal 0-2 [facility] Comment on above: Performed By: #### U MICAO, KENDRA, UAX ####[address] , [place] 535[address]83 lab Director: Meche Ellis MD Urine WBC's 0 TO 2 Normal 0-5 [facility] Comment on above: Performed By: #### U MICAO, KENDRA, UAX ####[facility] [place] [address] lab Director: Meche Ellis MD XR FEMUR LEFT (MIN 2 VIEWS)o n 09-09-2022 XR FEMUR LEFT (MIN 2 VIEWS) EXAMINATION: 5 XRAY VIEWS OF THE LEFT FEMUR 09/09/2022 9:10 am COMPARISON: None. HISTORY: ORDERING SYSTEM PROVIDED HISTORY: pain TECHNOLOGIST PROVIDED HISTORY: X-ray injured hip and pelvis - add femur if pain and/or swelling is distal to the hip pain FINDINGS: There is no evidence of acute fracture. There is normal alignment. No acute joint abnormality. No focal osseous lesion. No focal soft tissue abnormality. Vascular calcifications. IMPRESSION: No acute osseous abnormality. Interpreted by: Ramin Farah MD Signed by: Ramin Farah MD 09/09/22 Final result Normal [facility] Comprehensive Metabolic Pane thu 03-17-2022 Albumin [Mass/Vol] 3.8 g/dL Normal 3.6-5.1 [facility] Comment on above: Performed By: #### T SH reflex FT4, CMP, LDLD, LIPD #### [facility] [address], [place] [id number] Albumin/Globulin [Mass ratio] 1.2 {ratio} Normal 1.0-2.5 [facility] Comment on above: Performed By: #### T SH reflex FT4, CMP, LDLD, LIPD #### [facility] [address], [place] [id number] ALP [Catalytic activity/Vol] 130 U/L High 40-129 [facility] Comment on above: Performed By: #### T SH reflex FT4, CMP, LDLD, LIPD #### [facility] [address], [place] [id number] ALT [Catalytic activity/Vol] 18 U/L Normal 9-46 [facility] Comment on above: Result Comment: 09/23 Female reference range changed. Performed By: #### T SH reflex FT4, CMP, LDLD, LIPD #### [facility] [address], [place] [id number] Anion gap [Moles/Vol] 20 mmol/L Normal 12-20 [facility] [place] [facility] [employer] [facility] Comment on above: Result Comment: Effjulia ctive 10/29/2019 reference range changed. Performed By: #### T SH reflex FT4, CMP, LDLD, LIPD #### [facility] [address], [place] [id number] AST [Catalytic activity/Vol] 24 U/L Normal 10-40 [facility] Comment on above: Performed By: #### T SH reflex FT4, CMP, LDLD, LIPD #### [facility] [address], [place] [id number] BUN/CREA 24 Ratio High 6-22 [facility] Comment on above: Performed By: #### T SH reflex FT4, CMP, LDLD, LIPD #### [facility] [address], [place] [id number] Calcium [Mass/Vol] 10.3 mg/dL High 8.6-10.2 [facility] Comment on above: Performed By: #### T SH reflex FT4, CMP, LDLD, LIPD #### [facility] [address], [place] [id number] Chloride [Moles/Vol] 93 mmol/L Low 98-107 [facility] Comment on above: Performed By: #### T SH reflex FT4, CMP, LDLD, LIPD #### [facility] [address], [place] [id number] CO2 [Moles/Vol] 25 mmol/L Normal 20-31 [facility] Comment on above: Performed By: #### T SH reflex FT4, CMP, LDLD, LIPD #### [facility] [address], [place] [id number] Creatinine [Mass/Vol] 1.9 mg/dL High 0.7-1.4 [facility] Comment on above: Performed By: #### T SH reflex FT4, CMP, LDLD, LIPD #### [facility] [address], [place] [id number] eGFRAA 43 mL/min/1.73m2 Low >60 [facility] Comment on above: Performed By: #### T SH reflex FT4, CMP, LDLD, LIPD #### [facility] [address], [place] [id number] eGFRNAA 36 mL/min/1.73m2 Low >60 [facility] Comment on above: Performed By: #### T SH reflex FT4, CMP, LDLD, LIPD #### [facility] [address], [place] [id number] Globulin (S) [Mass/Vol] 3.3 g/dL Normal 1.9-3.7 N [facility] Comment on above: Performed By: #### T SH reflex FT4, CMP, LDLD, LIPD #### [facility] [address], [place] [id number] Glucose [Mass/Vol] 499 mg/dL Critically high 65-99 [facility] Comment on above: Result Comment: Crit ical result called to Silverio at 03/17/2022 3:54 PM by Ivonne Pratt (GLU) For FASTING Glucose --- ADA reference ranges: Normal 65-99 mg/dl Prediabetes 100-125 Diabetes >/= 126 Performed By: #### T SH reflex FT4, CMP, LDLD, LIPD #### [facility] [address], [place] [id number] Potassium [Moles/Vol] 4.3 mmol/L Normal 3.5-5.5 [facility] Comment on above: Performed By: #### T SH reflex FT4, CMP, LDLD, LIPD #### [facility] [address], [place] [id number] Protein [Mass/Vol] 7.1 g/dL Normal 6.1-8.1 [facility] [employer] Comment on above: Performed By: #### T SH reflex FT4, CMP, LDLD, LIPD #### [facility] [address], [place] [id number] Sodium [Moles/Vol] 133 mmol/L Low 135-146 [facility] [employer] Comment on above: Performed By: #### T SH reflex FT4, CMP, LDLD, LIPD #### [facility] [address], [place] [id number] TBIL <0.3 Normal [facility] [employer] Comment on above: Performed By: #### T SH reflex FT4, CMP, LDLD, LIPD #### [facility] [address], [place] [id number] Urea nitrogen [Mass/Vol] 45 mg/dL High 7-25 [facility] [employer] Comment on above: Performed By: #### T SH reflex FT4, CMP, LDLD, LIPD #### [facility] [address], [place] [id number] Hemoglobin A1Con 03-17-2022 EAG 320.66 Normal [facility] [employer] Comment on above: Performed By: #### A 1C #### [facility] [address], [place] [id number] HbA1c (Bld) [Mass fraction] 12.8 % High 4.0-6.0 [facility] [employer] Comment on above: Performed By: #### A 1C #### [facility] [address], [place] [id number] LDL-Directon 03-17-2022 Cholesterol in LDL [Mass/Vol] 126 mg/dL Normal [facility] [employer] Comment on above: Result Comment: LDL ATP III CLASSIFICATION LDL less than 100 mg/dl Optimal LDL 100-129 mg/dl Near or above optimal LDL 130-159 Borderline high LDL 160-189 High LDL greater than 189 mg/dl Very High Performed By: #### T SH reflex FT4, CMP, LDLD, LIPD #### [facility] [address], [place] [id number] Lipid Panelon 03-17-2022 Cholesterol [Mass/Vol] 407 mg/dL High 125-200 [facility] Comment on above: Result Comment: Low risk < 200mg/dL Borderline risk 201-239 mg/dl High risk > or equal to 240 Performed By: #### T SH reflex FT4, CMP, LDLD, LIPD #### [facility] [address], [place] [id number] Cholesterol in HDL [Mass/Vol] 33 mg/dL Low >40 [facility] [employer] Comment on above: Result Comment: High Cardiovascular Risk HDL <40 mg/dL Low Cardiovascular Risk HDL > or equal to 60 mg/dl Performed By: #### T SH reflex FT4, CMP, LDLD, LIPD #### [facility] [address], [place] [id number] Cholesterol in VLDL [Mass/Vol] 215 mg/dL Normal [facility] Comment on above: Performed By: #### T SH reflex FT4, CMP, LDLD, LIPD #### [facility] [address], [place] [id number] Cholesterol.total/Mavis sterol in HDL [Mass ratio] 12 {ratio} Normal [facility] Comment on above: Performed By: #### T SH reflex FT4, CMP, LDLD, LIPD #### [facility] [address], [place] [id number] LDLD REFLEX LDL-DIRECT Normal [facility] Comment on above: Performed By: #### T SH reflex FT4, CMP, LDLD, LIPD #### [facility] [address], [place] [id number] Triglyceride [Mass/Vol] 1074 mg/dL High 30-150 N [facility] Comment on above: Result Comment: TRIG ATPIII CLASSIFICATIONS TRIG less than 150 mg/dl Normal TRIG 150-199 mg/dl Borderline High TRIG 200-500 mg/dl High TRIG greather than 500 mg/dl Very High Performed By: #### T SH reflex FT4, CMP, LDLD, LIPD #### [facility] [address], [place] [id number] Microalbumin (with Creat)on 03-17-2022 mALB 87.2 mg/dL Normal [facility] Comment on above: Result Comment: mALB reference range not established. Performed By: #### m ALBC #### [facility] [address], [place] [id number] mALB/Creat Ratio 2491.4 MCG/MG Normal [facility] Comment on above: Result Comment: The ADA (Diabetes Care 26:S94-S98, 2003) defines abnormalities in Albumin excretion as follows: Category Result (MCG/MG Creatinine) Normal <30 Microalbuminuria 30-299 Clinical Albuminuria > or = 300 Performed By: #### m ALBC #### [facility] [address], [place] [id number] UCREA 35 mg/dL Low 39-259 [facility] Deputy County Attorney Comment on above: Performed By: #### m ALBC #### [facility] [address], [place] [id number] PSA SCREEN (MEDICARE)on 02-22 TPSA 6.010 ng/mL High <4.000 [facility] Deputy County Attorney Comment on above: Result Comment: PSA Test Method: ECLIA/Lio e 601 Performed By: #### P SA MC #### [facility] [address], [place] [id number] TSH w/ Reflex to Free T4on 0 03-17-2022 TSH 2.400 uIU/mL Normal 0.400-4.500 [facility] Deputy County Attorney Comment on above: Performed By: #### T SH reflex FT4, CMP, LDLD, LIPD #### [facility] [address], [place] [id number] Vital Signs Date Time Vital Sign Value Performing Clinician Facility 09-03-2024 14:35-0500 Body height 175.3 cm Lena Barnard MD Work Phone: [facility] 09-03-2024 14:35-0500 Body mass index (BMI) [Ratio] 34.11 kg/m2 Lena Barnard MD Work Phone: [facility] 09-03-2024 14:35-0500 Body weight 104.78 kg Lena Barnard MD Work Phone: [facility] 09-03-2024 14:35-0500 Diastolic blood pressure 86 mm[Hg] Lena Barnard MD Work Phone: [facility] 09-03-2024 14:35-0500 Heart rate 65 /min Lena Barnard MD Work Phone: [facility] 09-03-2024 14:35-0500 Respiratory rate 16 /min Lena Barnard MD Work Phone: [facility] 09-03-2024 14:35-0500 Systolic blood pressure 162 mm[Hg] Lena Barnard MD Work Phone: [facility] 06-06-2024 08:52-0400 Blood Pressure Location Betty Lue [facility] 06-06-2024 08:52-0400 Body temperature 96.8 [degF] Betty Lue [facility] 06-06-2024 08:52-0400 Diastolic blood pressure 78 mm[Hg] Betty Lue [facility] 06-06-2024 08:52-0400 Heart rate 72 /min Betty Lue [facility] 06-06-2024 08:52-0400 Systolic blood pressure 128 mm[Hg] Betty Lue [facility] 11-30-2023 10:59-0500 Blood Pressure Location Betty Lue [facility] 11-30-2023 10:59-0500 Diastolic blood pressure 84 mm[Hg] Betty Lue [facility] 11-30-2023 10:59-0500 Systolic blood pressure 124 mm[Hg] Betty Lue [facility] 10-12-2023 09:46-0500 Blood Pressure Location Betty Lue [facility] 10-12-2023 09:46-0500 Diastolic blood pressure 84 mm[Hg] Betty Lue [facility] 10-12-2023 09:46-0500 Systolic blood pressure 136 mm[Hg] Betty Lue [facility] 01-28-2023 10:00-0400 Body height 177.8 cm Ilan Wilder Other [email or web address] Other 01-28-2023 10:00-0400 Body mass index (BMI) [Ratio] 35.87 kg/m2 Ilan Wilder Other [employer] [facility] [employer] Other 01-28-2023 10:00-0400 Body weight 113.4 kg Ilan Wilder Other [employer] [facility] [employer] Other 01-28-2023 10:00-0400 Diastolic blood pressure 72 mm[Hg] Ilan Wilder Other [employer] Other 01-28-2023 10:00-0400 Systolic blood pressure 137 mm[Hg] Ilan Wilder Other [facility] [employer] Other 01-06-2023 11:13-0400 Diastolic blood pressure 81 mm[Hg] II Yassine Becker Work Phone: [facility] 01-06-2023 11:13-0400 Heart rate 84 /min II Yassine Becker Work Phone: [facility] 01-06-2023 11:13-0400 Respiratory rate 18 /min II Yassine Becker Work Phone: [facility] 01-06-2023 11:13-0400 SaO2% (BldA) [Mass fraction] 94 % II Yassine Becker Work Phone: [facility] 01-06-2023 11:13-0400 Systolic blood pressure 180 mm[Hg] II Yassine Becker Work Phone: [facility] 01-06-2023 09:55-0400 Body height 177.8 cm II Yassinemelisa Becker Work Phone: [facility] 01-06-2023 09:55-0400 Body temperature 97.6 [degF] II Yassine Becker Work Phone: [facility] 01-06-2023 09:55-0400 Body weight 106.2 kg II Yassine Becker Work Phone: [facility] 10-05-2022 09:54-0500 Blood Pressure Location GONZALEZ GERMAN [facility] 10-05-2022 09:54-0500 Diastolic blood pressure 88 mm[Hg] GONZALEZ MAXI [facility] 10-05-2022 09:54-0500 Heart rate 77 /min GONZALEZ ALEXANDERRY [facility] 10-05-2022 09:54-0500 Respiratory rate 16 /min GONZALEZ MAXI [facility] 10-05-2022 09:54-0500 Systolic blood pressure 140 mm[Hg] GONZALEZ MAXI [facility] 06-15-2022 09:48-0400 Blood Pressure Location Mahad Oconnor [facility] 06-15-2022 09:48-0400 BP/Pulse Patient Position Mahad Oconnor [facility] 06-15-2022 09:48-0400 Diastolic blood pressure 91 mm[Hg] Mahad Oconnor [facility] 06-15-2022 09:48-0400 Heart rate 60 /min Mahad Oconnor [facility] 06-15-2022 09:48-0400 Mean blood pressure 129 mm[Hg] Mahad Zahler [facility] 06-15-2022 09:48-0400 Respiratory rate 18 /min Mahad Zahler [facility] 06-15-2022 09:48-0400 SaO2% (BldA) [Mass fraction] 99 % Mahad Zahler [facility] 06-15-2022 09:48-0400 Systolic blood pressure 204 mm[Hg] Mahad Zahler [facility] 06-15-2022 09:48-0400 Body temperature 97.52 [degF] Mahad Zahler [facility] 06-15-2022 09:36-0400 Blood Pressure Location Mahad Carrillomichaeler [facility] 06-15-2022 09:36-0400 Diastolic blood pressure 88 mm[Hg] Mahad Zahler [facility] 06-15-2022 09:36-0400 Heart rate 66 /min Mahad Zahler [facility] 06-15-2022 09:36-0400 Respiratory rate 16 /min Mahad Zahler [facility] 06-15-2022 09:36-0400 SaO2% (BldA) [Mass fraction] 96 % Mahad Zahler [facility] 06-15-2022 09:36-0400 Systolic blood pressure 184 mm[Hg] Mahad Zahler [facility] 06-15-2022 09:22-0400 Blood Pressure Location Mahad Carrillohler [facility] 06-15-2022 09:22-0400 Diastolic blood pressure 100 mm[Hg] Mahad Oconnor [facility] 06-15-2022 09:22-0400 Heart rate 66 /min Mahad Oconnor [facility] 06-15-2022 09:22-0400 Respiratory rate 16 /min Mahad Oconnor [facility] 06-15-2022 09:22-0400 SaO2% (BldA) [Mass fraction] 95 % Mahad Oconnor [facility] 06-15-2022 09:22-0400 Systolic blood pressure 199 mm[Hg] Mahad Oconnor [facility] 06-15-2022 07:00-0400 Mean blood pressure 128 mm[Hg] Mahad Oconnor [facility] 06-15-2022 06:59-0400 Body temperature 97.88 [degF] Mahad Oconnor [facility] 06-15-2022 06:59-0400 Mean blood pressure 132 mm[Hg] Mahad Oconnor [facility] 06-15-2022 06:59-0400 Respiratory rate 20 /min Mahad Oconnor [facility] Encounters Encounter Date Encounter Type Care Provider Facility Start: 12-12-2024 ambulatory Betty Aguilar Facility[facility] Start: 09-07-2024 ambulatory Betty Aguilar Facility:[facility] Start: 09-03-2024 End: 09-03-2024 Office outpatient visit 25 minutes Lena Barnard MD Work Phone: [facility] Comment on above: Primary hypertension (CMS/HCC) (Primary Dx); Type 2 diabetes mellitus with hyperglycemia, with long-term current use of insulin (CMS/HCC); Vitamin D deficiency; Insulin long-term use ([facility]); Hyperlipemia, mixed ([facility]); Encounter for dietary consultation; Chronic kidney disease, stage IV (severe) ([facility]); Class 1 obesity due to excess calories with serious comorbidity and body mass index (BMI) of 34.0 to 34.9 in adult; Type 2 diabetes mellitus with stage 3b chronic kidney disease, with long-term current use of insulin ([facility]) ([facility]) Start: 09-03-2024 End: 09-03-2024 ambulatory ROSEMARYRhea Yusra EVON Not Available Start: 07-09-2024 End: 07-09-2024 ambulatory YASSINE BECKER Not Available Start: 06-06-2024 End: 06-06-2024 ambulatory Betty Aguilar Facility:[facility] Start: 06-06-2024 End: 06-06-2024 Patient encounter procedure Betty Aguilar [facility] Start: 04-12-2024 End: 04-12-2024 ambulatory YASSINE BECKER Not Available Start: 03-12-2024 End: 03-12-2024 ambulatory STANLEY GHOSH Not Available Start: 01-02-2024 End: 01-02-2024 ambulatory YASSINE BECKER Not Available Start: 11-30-2023 End: 11-30-2023 ambulatory Betty Aguilar Facility:[facility] Start: 11-30-2023 End: 11-30-2023 Patient encounter procedure Betty Aguilar [facility] Start: 11-17-2023 End: 11-17-2023 ambulatory YASSINE Luciano BECKER Not Available Start: 10-27-2023 End: 10-27-2023 ambulatory YASSINE Luciano BECKER Not Available Start: 10-12-2023 End: 10-12-2023 ambulatory Betty Aguilar Facility:[facility] Start: 10-12-2023 End: 10-12-2023 Patient encounter procedure Betty Aguilar [facility] Start: 10-03-2023 End: 10-03-2023 ambulatory YASSINE BECKER Not Available Start: 09-26-2023 End: 09-26-2023 ambulatory YASSINE BECKER Not Available Start: 03-09-2023 ambulatory YASSINEMELISA BECKER Facility:[facility] Start: 01-28-2023 End: 01-28-2023 ambulatory Ilan Wilder Other [facility] [employer] Other Start: 01-28-2023 Office outpatient ne w 30 minutes Ilan Wilder [facility] Start: 01-17-2023 End: 01-17-2023 Patient encounter procedure Betty Aguilar [facility] Start: 01-15-2023 End: 01-15-2023 Emergency department patient visit Chavez Lei Facility:[facility] Start: 01-06-2023 End: 01-06-2023 Emergency department patient visit Filemon Carrizales Facility:[facility] Start: 01-06-2023 End: 01-06-2023 Emergency department patient visit II Yassine Becker Work Phone: [facility] Work Phone: Start: 01-05-2023 End: 01-11-2023 Pre-admission assessment Betty Aguilar [facility] Start: 01-01-2023 End: 01-02-2023 ambulatory YASSINE BECKER Facility: Start: 12-13-2022 End: 12-13-2022 ambulatory Betty Aguilar Facility:[facility] Start: 12-13-2022 End: 12-13-2022 ambulatory II Yassine Becker Work Phone: [facility] Work Phone: Start: 12-13-2022 End: 12-13-2022 Patient encounter procedure II Yassine Becker Work Phone: [facility] [place] Work Phone: Start: 10-05-2022 End: 10-05-2022 Lab Drop off GONZALEZ GERMAN [facility] Start: 10-05-2022 End: 10-05-2022 Patient encounter procedure GONZALEZ Julia MAXI [facility] Start: 09-09-2022 End: 09-10-2022 ambulatory YASSINE B BECKER [facility] Start: 09-09-2022 End: 09-09-2022 Emergency department patient visit [facility] Start: 06-15-2022 End: 06-15-2022 Admission to same day surgery center Mahad Oconnor [facility] Procedures Date Procedure Procedure Detail Performing Clinician Start: 09-03-2024 Gluc bld gluc mntr d ev cleared fda spec home use Lena Barnard MD Work Phone: Start: 01-17-2023 Cystoscopy Betty Aguilar Start: 01-06-2023 Computed tomography of abdomen and pelvis with contrast II Yassine Becker Work Phone: Start: 12-13-2022 MR prostate wo con II D jeremy Becker Work Phone: Start: 06-15-2022 Cataract extraction and insertion of intraocular lens Mahad Oconnor Start: 11-10-2016 Transurethral prostatectomy GONZALEZ GERMAN Plan of Treatment Date Care Activity Detail Author Start: 10-19-2025 Screening for malignant neoplasm of colon [facility] Start: 09-07-2025 Glaucoma screening Diabetes: Retinopathy Screening [facility] Start: 07-09-2025 Medicare Annual Wellness (AWV) Medicare Annual Wellness (AWV) [facility] Start: 07-09-2025 Urine screening for protein Diabetes: Urine Protein Screening [facility] Start: 03-11-2025 End: 03-11-2025 Patient encounter procedure 03/11/2025 8:40 AM EDT Office Visit [facility] [address] [place] [id number] Stanley Ghosh, SPEEDER MACHINE OPERATOR-REGIONAL FACILITIES MANAGER [address] [place] [address] [facility] Start: 12-31-2024 End: 12-31-2024 Patient encounter procedure 12/31/2024 1:40 PM EDT Office Visit [facility] [id number] [place] [phone] Lena Barnard MD [address] [place] [address] [facility] Start: 12-04-2024 Hemoglobin A1c measurement Diabetes: Hemoglobin A1C [facility] Start: 09-12-2024 End: 09-12-2024 Patient encounter procedure 09/12/2024 2:00 PM EST Office Visit [facility] [address] [facility] [address] [place] [id number] Zoey Morales MD [address] [facility] [address] [place] [address] [facility] Start: 06-24-2024 Influenza vaccination Influenza Vaccine (#1) [facility] Start: 1961 Pneumococcal Vaccine: 65+ Years (1 of 2 - PCV) Pneumococcal Vaccine: 65+ Years (1 of 2 - PCV) [facility] Start: 1955 Screening for malignant neoplasm of colon [facility] Patient Education Abdominal Pain, Adult E D [facility] Work Phone: Patient referral [facility] Work Phone: Immunizations Immunization Date Immunization Notes Care Provider Ramona [email or web address] 08-20-2022 influenza virus vaccine, unspecified formulation GONZALEZ GERMAN [facility] 08-20-2022 influenza, high dose seasonal, preservative-free Lena Barnard MD Work Phone: [facility] 12-12-2021 diphtheria, tetanus toxoids and pertussis vaccine Lena Barnard MD Work Phone: [facility] 12-12-2021 tetanus toxoid, redu iker diphtheria toxoid, and acellular pertussis vaccine, adsorbed Lena Barnard MD Work Phone: [facility] 11-18-2021 SARS-CoV-2 (COVID-19 ) mRNA BNT-162b2 vax GONZALEZ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 the penis and used to create pressure that helps the penis become erect. Penile implant surgery. In this procedure, you may receive: ?An inflatable implant. This consists of cylinders, a pump, and a reservoir. The cylinders can be inflated with a fluid that helps to create an erection, and they can be deflated after intercourse. ?A semi-rigid implant. This consists of two silicone rubber rods. The rods provide some rigidity. They are also flexible, so the penis can both curve downward in its normal position and become straight for sexual intercourse. Blood vessel surgery to improve blood flow to the penis. During this procedure, a blood vessel from a different part of the body is placed into the penis to allow blood to flow around (bypass) damaged or blocked blood vessels. Lifestyle changes, such as exercising more, losing weight, and quitting smoking. Follow these instructions at home: Medicines Take qher-opr-itckmja and prescription medicines only as told by your health care provider. Do not increase the dosage without first discussing it with your health care provider. If you are using self-injections, do injections as directed by your health care provider. Make sure you avoid any veins that are on the surface of the penis. After giving an injection, apply pressure to the injection site for 5 minutes. Talk to your health care provider about how to prevent headaches while taking ED medicines. These medicines may cause a sudden headache due to the increase in blood flow in your body. General instructions Exercise regularly, as directed by your health care provider. Work with your health care provider to lose weight, if needed. Do not use any products that contain nicotine or tobacco. These products include cigarettes, chewing tobacco, and vaping devices, such as e-cigarettes. If you need help quitting, ask your health care provider. Before using a vacuum pump, read the instructions that come with the pump and discuss any questions with your health care provider. Keep all follow-up visits. This is important. Contact a health care provider if: You feel nauseous. You are vomiting. You get sudden headaches while taking ED medicines. You have any concerns about your sexual health. Get help right away if: You are taking oral or injectable medicines and you have an erection that lasts longer than 4 hours. If your health care provider is unavailable, go to the nearest emergency room for evaluation. An erection that lasts much longer than 4 hours can result in permanent damage to your penis. You have severe pain in your groin or abdomen. You develop redness or severe swelling of your penis. You have redness spreading at your groin or lower abdomen. You are unable to urinate. You experience chest pain or a rapid heartbeat (palpitations) after taking oral medicines. These symptoms may represent a serious problem that is an emergency. Do not wait to see if the symptoms will go away. Get medical help right away. Call your local emergency services (911 in the [place] Do not drive yourself to the hospital. Summary Erectile dysfunction (ED) is the inability to get or keep an erection during sexual intercourse. This condition is diagnosed based on a physical exam, your symptoms, and tests to determine the cause. Treatment varies depending on the cause and may include medicines, hormone therapy, surgery, or a vacuum pump. You may need follow-up visits to make sure that you are using your medicines or devices correctly. Get help right away if you are taking or injecting medicines and you have an erection that lasts longer than 4 hours. This information is not intended to replace advice given to you by your health care provider. Make sure you discuss any questions you have with your health care provider. Document Revised: 01/06/2022 Document Reviewed: 01/06/2022 [employer] Patient Education 2022 [employer]. Follow Up Care 10/12/2023 10:36:39 With:Jeff HILL, LEYLA Turner, URO Address: [address] [place] [address]- [phone] When: Unknown Comments:4-5 mos (new meds) [facility] 10-12-2023 Hospital Discharge instructions Patient Education 10/12/2023 10:28:44 Benign Prostatic Hyperplasia Benign Prostatic Hyperplasia Benign prostatic hyperplasia (BPH) is an enlarged prostate gland that is caused by the normal aging process. The prostate may get bigger as a man gets older. The condition is not caused by cancer. The prostate is a walnut-sized gland that is involved in the production of semen. It is located in front of the rectum and below the bladder. The bladder stores urine. The urethra carries stored urine out of the body. An enlarged prostate can press on the urethra. This can make it harder to pass urine. The buildup of urine in the bladder can cause infection. Back pressure and infection may progress to bladder damage and kidney (renal) failure. What are the causes? This condition is part of the normal aging process. However, not all men develop problems from this condition. If the prostate enlarges away from the urethra, urine flow will not be blocked. If it enlarges toward the urethra and compresses it, there will be problems passing urine. What increases the risk? This condition is more likely to develop in men older than 50 years. What are the signs or symptoms? Symptoms of this condition include: Getting up often during the night to urinate. Needing to urinate frequently during the day. Difficulty starting urine flow. Decrease in size and strength of your urine stream. Leaking (dribbling) after urinating. Inability to pass urine. This needs immediate treatment. Inability to completely empty your bladder. Pain when you pass urine. This is more common if there is also an infection. Urinary tract infection (UTI). How is this diagnosed? This condition is diagnosed based on your medical history, a physical exam, and your symptoms. Tests will also be done, such as: A post-void bladder scan. This measures any amount of urine that may remain in your bladder after you finish urinating. A digital rectal exam. In a rectal exam, your health care provider checks your prostate by putting a lubricated, gloved finger into your rectum to feel the back of your prostate gland. This exam detects the size of your gland and any abnormal lumps or growths. An exam of your urine (urinalysis). A prostate specific antigen (PSA) screening. This is a blood test used to screen for prostate cancer. An ultrasound. This test uses sound waves to electronically produce a picture of your prostate gland. Your health care provider may refer you to a specialist in kidney and prostate diseases (urologist). How is this treated? Once symptoms begin, your health care provider will monitor your condition (active surveillance or watchful waiting). Treatment for this condition will depend on the severity of your condition. Treatment may include: Observation and yearly exams. This may be the only treatment needed if your condition and symptoms are mild. Medicines to relieve your symptoms, including: ?Medicines to shrink the prostate. ?Medicines to relax the muscle of the prostate. Surgery in severe cases. Surgery may include: ?Prostatectomy. In this procedure, the prostate tissue is removed completely through an open incision or with a laparoscope or robotics. ?Transurethral resection of the prostate (TURP). In this procedure, a tool is inserted through the opening at the tip of the penis (urethra). It is used to cut away tissue of the inner core of the prostate. The pieces are removed through the same opening of the penis. This removes the blockage. ?Transurethral incision (TUIP). In this procedure, small cuts are made in the prostate. This lessens the prostate's pressure on the urethra. ?Transurethral microwave thermotherapy (TUMT). This procedure uses microwaves to create heat. The heat destroys and removes a small amount of prostate tissue. ?Transurethral needle ablation (TUNA). This procedure uses radio frequencies to destroy and remove a small amount of prostate tissue. ?Interstitial laser coagulation (ILC). This procedure uses a laser to destroy and remove a small amount of prostate tissue. ?Transurethral electrovaporization (TUVP). This procedure uses electrodes to destroy and remove a small amount of prostate tissue. ?Prostatic urethral lift. This procedure inserts an implant to push the lobes of the prostate away from the urethra. Follow these instructions at home: Take omxm-dol-carbdne and prescription medicines only as told by your health care provider. Monitor your symptoms for any changes. Contact your health care provider with any changes. Avoid drinking large amounts of liquid before going to bed or out in public. Avoid or reduce how much caffeine or alcohol you drink. Give yourself time when you urinate. Keep all follow-up visits. This is important. Contact a health care provider if: You have unexplained back pain. Your symptoms do not get better with treatment. You develop side effects from the medicine you are taking. Your urine becomes very dark or has a bad smell. Your lower abdomen becomes distended and you have trouble passing urine. Get help right away if: You have a fever or chills. You suddenly cannot urinate. You feel light-headed or very dizzy, or you faint. There are large amounts of blood or clots in your urine. Your urinary problems become hard to manage. You develop moderate to severe low back or flank pain. The flank is the side of your body between the ribs and the hip. These symptoms may be an emergency. Get help right away. Call 911. Do not wait to see if the symptoms will go away. Do not drive yourself to the hospital. Summary Benign prostatic hyperplasia (BPH) is an enlarged prostate that is caused by the normal aging process. It is not caused by cancer. An enlarged prostate can press on the urethra. This can make it hard to pass urine. This condition is more likely to develop in men older than 50 years. Get help right away if you suddenly cannot urinate. This information is not intended to replace advice given to you by your health care provider. Make sure you discuss any questions you have with your health care provider. Document Revised: 04/28/2022 Document Reviewed: 04/28/2022 [employer] Patient Education 2022 [employer]. Follow Up Care 01/17/2023 10:19:18 With:Jeff HILL, Betty Tineo, URL, [facility] Address: [address] [place] [phone] When: Unknown Comments:1 month [facility] 01-28-2023 Evaluation note Encounter Date Diagnosis Assessment Notes Jan, Dysphagia (ICD-10 - R13.10) Patient having dysphagia to solids. Patient denies any hematemisis. Jan, Constipation (ICD-10 - K59.00) Bowel movements are every 2-3 days. Patient to try adding daily probiotics and fiber to daily diet to help relieve constipation. Increase daily water intake. Recommendation also given to utilize MiraLAX as needed however the hope is that lifestyle choices will help this patient with their intermittent constipation Jan, Early satiety (ICD-10 - R68.81) [email or web address] Other 03-27-2023 Evaluation + Plan noteExtracted from: Title:[facility] clinic note Author:Betty Aguilar MD Date:01/17/23 Impression and Plan Assessment and Plan: Diagnosis: Abnormal CT scan (MPO04-PN R93.89, Discharge, Medical), BPH with obstruction/lower urinary tract symptoms (LKB18-QF N40.1, Discharge, Medical), Gross hematuria (RSJ97-QD R31.0, Working, Medical), Microhematuria (DIP89-PJ R31.29, Discharge, Medical). 67 year old male with hx BPH with LUTS, elevated PSA, microscopic hematuria, recently gross hematuria 6 wks ago after starting blood thinners (recent LLE DVT, on for 6 mths at least) #1 Elevated PSA -PSA 10/06/22- 5.5, 45% free 03/17/22 - 6.01 10/21/16 - 13.0 Benign path on TURP 2016. normal HILDA no family hx prostate cancer. MRI prostate 12/13/22- neg for PIRADs lesions. Prior prostatitis. Volume 108 ml. PSAD 0.05 -Cont monitoring PSA #2) Hematuria (gross/micro) -Urine cytology neg -Prior CT AP neg for stones or hydro -No bladder mass on cysto today, likely due to large intravesical prostate #3) BPH with LUTS -Recently on blood thinner due to LLE DVT 6 wks ago, will be on for 6 mths.Elev risk of procedures during this time, will hold off on outlet procedure until this has resolved: Greenlight laser vs TURP vs simple prostatectomy given size -Start tamsulosin and finasteride for medical optimization given not a surgical candidate at this time. Risks/benefits discussed -Follow up in 5-6 mths Future Appointments Appointment Date:06/08/2023 10:45:00 AM Scheduled Provider:Jeff HILL, Betty Tineo Location:[facility] Appointment Type:URO Office Visit [facility]03-27-2023 Hospital Discharge instructions Patient Education 01/17/2023 10:16:53 EU - Cystoscopy Discharge Instructions (CUSTOM) Cystoscopy Voiding after the procedure: there may be some pain, burning, urgency, frequency and blood tinged urine following the procedure. These symptoms usually resolve within 2-5 days. Drink the amount of fluid it takes to keep the urine pink to yellow or clear in color. Drinking enough water and fluids will help to ease any discomfort after your procedure. If you are having problems that seem out of the ordinary, please call. If unable to contact your physician and you feel it is an emergency, go to the nearest emergency room or call 911 Diet you may resume your normal diet. Activity you may resume your normal activities Call if you have a fever over 100 degrees. Follow Up Care 01/10/2023 10:25:04 With:Betty Aguilar Address: [address] [place] [address]- [phone] Business (1) [address], [address] [phone] Business (1) When: Unknown Comments:Office to schedule follow up in 5-6 months with [facility]12-13-2022 Evaluation + Plan note Diagnostic Tests Pending * PSA Free & Total 10/05/22 * Urine Cytology ([facility]) 10/05/22 [facility] 12-13-2022 Hospital Discharge instructions Patient Education 10/05/2022 10:56:58 Hematuria, Adult Hematuria, Adult Hematuria is blood in the urine. Blood may be visible in the urine, or it may be identified with a test. This condition can be caused by infections of the bladder, urethra, kidney, or prostate. Otherpossible causes include: Kidney stones. Cancer of the urinary tract. Too much calcium in the urine. Conditions that are passed from parent to child (inherited conditions). Exercise that requires a lot of energy. Infections can usually be treated with medicine, and a kidney stone usually will pass through your urine. If neither of these is the cause of your hematuria, more tests may be needed to identify the cause of your symptoms. It is very important to tell your health care provider about any blood in your urine, even if it ispainless or the blood stops without treatment. Blood in the urine, when it happens and then stops and then happens again, can be a symptom of a very serious condition, including cancer. There is no pain in the initial stages of many urinary cancers. Follow these instructions at home: Medicines Take xwvv-gcv-zmdpolt and prescription medicines only as told by your health care provider. If you were prescribed an antibiotic medicine, take it as told by your health care provider. Do notstop taking the antibiotic even if you start to feel better. Eating and drinking Drink enough fluid to keep your urine clear or pale yellow. It is recommended that you drink 3 4 quarts (2.8 3.8 L) a day. If you have been diagnosed with an infection, it is recommended that you drink cranberry juice in addition to large amounts of water. Avoid caffeine, tea, and carbonated beverages. These tend to irritate the bladder. Avoid alcohol because it may irritate the prostate (men). General instructions If you have been diagnosed with a kidney stone, follow your health care provider's instructions about straining your urine to catch the stone. Empty your bladder often. Avoid holding urine for long periods of time. If you are female: ?After a bowel movement, wipe from front to back and use each piece of toilet paper only once. ?Empty your bladder before and after sex. Pay attention to any changes in your symptoms. Tell your health care provider about any changes or any new symptoms. It is your responsibility to get your test results. Ask your health care provider, or the department performing the test, when your results will be ready. Keep all follow-up visits as told by your health care provider. This is important. Contact a health care provider if: You develop back pain. You have a fever. You have nausea or vomiting. Your symptoms do not improve after 3 days. Your symptoms get worse. Get help right away if: You develop severe vomiting and are unable take medicine without vomiting. You develop severe pain in your back or abdomen even though you are taking medicine. You pass a large amount of blood in your urine. You pass blood clots in your urine. You feel very weak or like you might faint. You faint. Summary Hematuria is blood in the urine. It has many possible causes. It is very important that you tell your health care provider about any blood in your urine, even ifit is painless or the blood stops without treatment. Take ulmj-kwr-hmvwecl and prescription medicines only as told by your health care provider. Drink enough fluid to keep your urine clear or pale yellow. This information is not intended to replace advice given to you by your health care provider. Make sure you discuss any questions you have with your health care provider. Document Released: 10/10/2006 Document Revised: 03/05/2020 Document Reviewed: 11/12/2017 [employer]20/20 Patient Education 2020 [employer]. Follow Up Care 09/21/2022 08:21:34 With:[facility] Address: [address] [place] [address] Business (1) When: Unknown Comments:for procedure as scheduled [facility] 08-23-2022 Hospital Discharge instructions Patient Education 06/15/2022 07:49:56 ELIZABETH- After Surgery Eye (Custom) [place], [place] Mahad Oconnor D.O. AFTER SURGERY [right eye] [left eye] RESTRICTIONS FOR SIX WEEKS: No rubbing of eye. Try not to sleep on stomach. Wear eye shield at bedtime for 2 WEEKS. Avoid circumstances which may result in trauma to the eye. You may shower and/or bathe. To wash hair allow water to run down back of the head if possible. For YOUR comfort, wear sunglasses in sunlight as needed. METHOD OF APPLYING EYE MEDICATION: Look up. Pull down lower lid. (NO PRESSURE ON EYE) Apply one drop of medication inside the pocket of lower lid. ON THE DAY OF SURGERY: Wear your shield until you get home and then it can be removed. Reapply the shield at bedtime or atany time you are sleeping. PAIN: use Tylenol 325 mg. every 4 hours as needed. The eye may feel as if there is an eyelash in it. This scratchiness is normal. Start your eye drops when you get home. (barros)Besivance/ Ofloxacin apply to surgical eye, three more times today. (garcia)Diclofenac/ Ketorolac apply to surgical eye, four more times today. (pink/white)Prednisolone Acetate apply to surgical eye, six times today. -Wait 3-5 minutes between eye drops -Do one set of eye drops the next day in the morning before your appointment. Follow Up Care 05/26/2022 11:13:44 With:Mahad Oconnor Address: [address] [place], [address] [address]- Business (1) When:1 to 2 days [facility] No data available for this section [facility] Future Appointments Appointment Date:01/17/2023 09:45:00 AM Scheduled Provider: Location:[facility] Future Appointments Appointment Date:11/30/2023 10:30:00 AM Scheduled Provider:Betty Aguilar MD Location:[facility] Appointment Type:URO Office Visit [facility] evaluation + Plan note Future Appointments Appointment Date:06/06/2024 08:45:00 AM Scheduled Provider:Betty Aguilar MD Location:[facility] Appointment Type:URO Office Visit [facility] evaluation + Plan note Future Appointments Appointment Date:12/12/2024 08:45:00 AM Scheduled Provider:Betty Aguilar MD Location:[facility] Appointment Type:URO Office Visit Diagnostic Tests Pending * PSA Free & Total 06/06/24 [facility] evaluation noteNo assessment information available [facility] Work Phone: Evaluation note* Diagnosis Primary hypertension ([facility]/HCC)- Primary Unspecified essential hypertension Type 2 diabetes mellitus with hyperglycemia, with long-term current use of insulin (CMS/[facility]) Vitamin D deficiency Insulin long-term use ([facility]) Encounter for long-term (current) use of insulin Hyperlipemia, mixed ([facility]) Mixed hyperlipidemia Encounter for dietary consultation Chronic kidney disease, stage IV (severe) (CMS/HCC) Chronic kidney disease, Stage IV (severe) Class 1 obesity due to excess calories with serious comorbidity and body mass index (BMI) of 34.0 to 34.9 in adult Type 2 diabetes mellitus with stage 3b chronic kidney disease, with long-term current use of insulin (HCC) (CMS/[facility]) documented in this encounter [facility] N[facility]ative - Reported* Type Description Date Medical History diabetes mallitus Medical History Blood clots [email or web address] Other Hospital Discharge instructions No data available for this section [facility] No data available for this section [facility] Summary Purpose Family History No Family History Records FoundNo Family History Records FoundNo Family History Records FoundNo Family History Records FoundNo Family History Records Found No data available for this section No data available for this section No data available for this section No Family History Records FoundNo Family History Records Found Advance Directives Advance Directive Response Recorded Date/ Time Advance Directives No November 10, 2022 3:10pm Advance Directive Response Recorded Date/ Time Advance Directives No November 10, 2022 4:10pm Chief Complaint and Reason for Visit Chief Complaint r97.20 n40.1 Chief Complaint r97.20 n40.1 cant sleep upper abd pain Additional Source Comments Care Team (unrecognized sect ion and content) Team Status: Inactive Member Role Status Dates Yassine Becker II MD Primary Care Provider Active Betty Aguilar MD Attending Provider Active Team Status: Active Member Role Status Dates Yassine Becker II MD Primary Care Provider Active Team Status: Inactive Member Role Status Dates Yassine Becker II MD Primary Care Provider Active Filemon Carrizales DO Emergency Provider Active Back Grinder Relationship Specialty Start Date End Date Yassine Becker MD [address] [facility] [address] [place] [address] PCP - [employer] 10/24/22 Yassine Becker MD [address] [place] [address] PCP - General Internal Medicine 04/18/23 (unrecognized sect ion and content) No Status Records FoundNo Status Records FoundNo Status Records FoundNo Status Records FoundNo Status Records FoundNo Status Records FoundNo Status Records Found INFORMATION SOURCE (unrecogn ized section and content) DATE CREATED AUTHOR 09/12/2022 [facility] DATE CREATED AUTHOR AUTHOR'S ORGANIZ ATION 09/15/2022 [facility] DATE CREATED AUTHOR AUTHOR'S ORGANIZ ATION 12/22/[address] [facility] dical Specialist DATE CREATED AUTHOR AUTHOR'S ORGANIZ ATION 01/27/2023 [facility] DATE CREATED AUTHOR AUTHOR'S ORGANIZ ATION 03/09/2023 [facility] DATE CREATED AUTHOR AUTHOR'S ORGANIZ ATION 09/05/[address] [facility] dical Specialists [facility] DATE CREATED AUTHOR AUTHOR'S ORGANIZ ATION 09/10/2024 [facility] Goals (unrecognized section and content) Goals may be documented in a n alternate section REASON FOR VISIT (unrecogniz ed section and content) Reason Comments Diabetes Follow-up FOR RECORDS PERTAINING TO PATIENTS WHO ARE OR HAVE BEEN ENROLLED IN A CHEMICAL DEPENDENCY/SUBSTANCEABUSE PROGRAM, SOME INFORMATION MAY BE OMITTED. This clinical summary was aggregated from multiple sources. Caution should be exercised in using it in the provision of clinical care. This summary normalizes information from multiple sources, and as a consequence, information in this document may materially change the coding, format and clinical context of patient data. In addition, data may be omitted in some cases. CLINICAL DECISIONS SHOULD BE BASED ON THE PRIMARY CLINICAL RECORDS. [facility] [employer] provides no warranty or guarantee of the accuracy or completeness of information in this document.
== END 2024-10-03 08:52 | disposition home or self-care (01) ==
LOC: US 08:51
PROVIDERS: PCP Internal Medicine; Visit Provider Urology
DX: N28.9 Disorder of kidney and ureter, unspecified (principal); R97.20 Elevated prostate specific antigen [PSA]; N40.1 Benign prostatic hyperplasia with lower urinary tract symptoms
CPT/HCPCS: 76770

== ENCOUNTER 2025-09-02 13:15 | Outpatient (OUT) | payer MEDICARE, SELFPAY ==
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
--- OUTSIDE RECORDS SUMMARY | 2025-09-02 13:20 | XMS_ITS ---
Author Organization [facility] Address [address] [place] [address] Care Team Providers Care Oil Pump Station Operator Chief Name Role Phone Yassine Becker MD Primary Care Provider [phone] Safia Fine FRONT MAN Unavailable Active Problems ProblemNoted DateDiagnosed DateType 2 diabetes mellitus with severe nonproliferative diabetic retinopathy with macular edema, qhyalxovt77/29/2025 Overview (07/22/2025): Noted by BORA Jacobo MD last documented on 20241102 Bilateral hearing loss07/09/2024hronic kidney disease, stage 4 (severe) 07/09/2024ost-traumatic osteoarthritis of left knee04/12/2024Type 2 diabetes mellitus with diabetic chronic kidney ibffoin5410/27/2023bnormal CT scan 09/26/2023Elevated PSA09/26/20234299Nhvfbuwehwxz18/04/7007Bzxbwxvojobpyp42/04/2023 Basal cell carcinoma of chin04/20/2023asal cell carcinoma of skin04/20/2023 Benign non-nodular prostatic hyperplasia with lower urinary tract symptoms 04/20/2023ladder rfqhqxovytb71/28/2023hronic miodoezfy43/28/2023ongenital stenosis of inferior vena cava04/20/2023iabetic macular edema04/20/2023iabetic azukkqomizwmho98/28/2023Enlarged gntzpapv12/28/2023Hypertensive heart and chronic kidney disease without heart failure, with stage 1 through stage 4 ch ronic kidney disease, or unspecified chronic kidney hdmrbey6704/20/2023 Plllxlrsbfcbbchxowav93/28/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 cvkzbcengem63/28/2023Impotence of organic gioqhg4304/20/20230264Jckqlgow83/28/2023 Localized swelling of both lower legs04/20/2023Nonproliferative retinopathy of left eye due to type 2 diabetes eyvgnimt10/28/2023Obesity (BMI 30-39.9) 04/20/2023eripheral venous pnevjczyablqc26/28/2023Stage 3b chronic kidney zwrcooo0104/20/2023olyneuropathy due to type 2 diabetes zkzhdaqa98/04/2021 Diabetic renal hdpngnb2712/06/2016Hyperglycemia due to type 2 diabetes mellitus 12/06/2016Long term current use of wzvnvac7812/06/2016Lower urinary tract symptoms due to benign prostatic /17/2017Degeneration of lumbar or lumbosacral intervertebral disc01/03/2012Mixed kvbukgednrppvm96/12/2012 Asymptomatic varicose veins12/13/2011enign essential dzqcchcfgjox30/20/2012 Lumbosacral spondylosis without dauknvenxx42/20/2012 Current Treatment and Therapy Plans No current plan information found. Past Treatment and Therapy Plans No past plan information found. Lifetime Dose Tracking * ChemicalLifetime DoseAutomatic EntryManual TdwreKnzbboilv11.09 mSv32.09 mSv0 mSvRadiation (DLP)102.61 mGy-cm102.61 mGy-cm0 mGy-cmCTDIvol2.73 mGy2.73 mGy0 mGy Resolved Problems ProblemNoted DateDiagnosed DateResolved DateEssential xjehauugljja76/11/2024 07/22/2025Diabetes mellitus without ftjyciiwnnmj61hronic deep vein thrombosis (DVT) of femoral vein/Difficulty swallowing Syncope and caqpzjxf98/alculus of kidney
--- OUTSIDE RECORDS SUMMARY | 2025-09-02 13:20 | XMS_ITS | Encounter Summary ---
Author Organization [facility] Address [address] [place] [address] Care Team Providers Care Fishing Tackle Repairer Name Role Phone Yassine Becker MD Primary Care Provider [phone] Safia Fine SUPERVISOR INTELLIGENCE ANALYST Unavailable Encounter Details DateTypeDepartmentCare Team (Latest Contact Info)Powfhigiiph89/15/2024Clinisync Result Encounter [facility] Department Unsolicited Yassine Becker MD [address] [address] Social History Tobacco UseTypesPacks/DayYears UsedDateSmoking Tobacco: [id number] - 1990Smokeless Tobacco: NeverAlcohol UseStandard Drinks/WeekCommentsNot Currently0 (1 standard drink = 0.6 oz pure alcohol)Social Connection and Isolation PanelAnswerDate RecordedIn a typical week, how many times do you talk on the phone with family, friends, or neighbors?More than three times a week 12/26/2023How often do you get together with friends or relatives?More than three times a week12/26/2023How often do you attend restoration or religion services?More than 4 times per year12/26/2023o you belong to any clubs or organizations such as restoration groups, unions, fraternal or athletic groups, or school groups?Yes12/26/2023How often do you attend meetings of the clubs or organizations you belong to?Never12/26/2023re you , , , , never , or living with a partner?Living with jsvzxnu3312/26/2023 AUDIT-CAnswerDate RecordedQ1: How often do you have a drink containing alcohol? Never12/26/2023Q2: How many drinks containing alcohol do you have on a typical day when you are drinking?Patient does not drink12/26/2023Q3: How often do you have six or more drinks on one occasion?Never12/26/2023Overall Financial Resource Strain (CARDIA)AnswerDate RecordedHow hard is it for you to pay for the very basics like food, housing, medical care, and heating?Somewhat hard 12/26/2023HQ-2AnswerDate RecordedPatient Health Questionnaire-2 Score0 07/22/2025[facility] [place] of Occupational Health - Occupational Stress QuestionnaireAnswerDate RecordedDo you feel stress - tense, restless, nervous, or anxious, or unable to sleep at night because yourmind is troubled all the time - these days?Only a ktdjkt9612/26/2023Exercise Vital SignAnswerDate Recorded On average, how many days per week do you engage in moderate to strenuous exercise (like a brisk walk)?2 days12/26/2023On average, how many minutes do you engage in exercise at this level?30 min12/26/2023Hunger Vital SignAnswerDate RecordedWithin the past 12 months, you worried that your food would run out before you got the money to buymore.Sometimes true12/26/2023Within the past 12 months, the food you bought just didn't last and you didn't have money to get more.Sometimes true12/26/2023RAPARE - TransportationAnswerDate RecordedIn the past 12 months, has lack of transportation kept you from medical appointments or from getting medications?No12/26/2023In the past 12 months, has lack of transportation kept you from meetings, work, or from getting things needed for daily living?No12/26/2023Housing Stability Vital SignAnswerDate RecordedIn the last 12 months, was there a time when you were not able to pay the mortgage or rent on time?No12/26/2023In the last 12 months, how many places have you lived?1 03/04/2024In the last 12 months, was there a time when you did not have a steady place to sleep or slept in aileyelter (including now)?No12/26/2023Sex and Gender InformationValueDate RecordedSex Assigned at CjerzBzzs11/08/2025 7:01 AM EST Legal WlnUoch4402/21/2023 8:31 PM EDTGender DzagzvdqGfvy45/08/2025 7:01 AM EST Sexual RlmzytxkurrPrekumga23/08/2025 7:01 AM ESTdocumented as of this encounter Functional Status * Over the past 2 weeks, how often have you been bothered by any of the following problems?QuestionAnswerDate of AssessmentAuthorLittle interest or pleasure in doing thingsNot at all07/22/2025 2:03 PM EDTVoDominga landry LPN Feeling down, depressed, or hopelessNot at all07/22/2025 2:03 PM EDTVoDominga landry LPNPatient Health Questionnaire-2 Wdfuc943 2:03 PM EDTDominga Bhatia LPN documented as of this encounter Plan of Treatment DateTypeDepartmentCare Team (Latest Contact Info)Trnjoremotz95/20/2025 1:50 PM ESTProcedure Visit [facility] [address] [facility] [address] [place] [address] Paul Molina, DPPino [address] [facility] [address] [place] [address] 11/06/2025 3:00 PM ESTOffice Visit [facility] [address] [place] [id number] Lena Bullock MD [address] [place] [address] documented as of this encounter Procedures Procedure NamePriorityDate/TimeAssociated DiagnosisCommentsXR KNEE 3 VIEWS LEFT 05/07/2024 1:18 PM EDT documented in this encounter Results * XR knee 3 views left (05/07/2024 1:18 PM EDT)Anatomical RegionLaterality ModalityLower Extremities, KneeLeftRadiographic ImagingSpecimen (Source) Anatomical Location / LateralityCollection Method / VolumeCollection Time Received Time05/07/2024 1:18 PM EDT Narrative 05/07/2024 1:21 PM EDT [facility] ?[address] ? [place], [facility] ?XRay Report ? Signed ? Patient: ARTINO,MARCO ANTONIO C Jr. ?MR#: [id number] ?? : 1955 ?Acct:[id number] ?? Age/Sex: 68 / M ?ADM Date: 05/07/24 ?? Loc: RAD ? Attending Dr: YASSINE BECKER ? Ordering Physician: YASSINE BECKER ?? Date of Service: 05/07/24 ?? Procedure(s): XR knee LT 3V ?? Accession Number(s): [id number] ? cc: YASSINE BECKER ? [facility] ? [address] [facility] ? [place] [address] ? Patient Name: ?? MARCO ANTONIO C ARTINO ? MRN: [facility]:[id number] ? date: 1955 ?Sex: M ?? Assigned Patient Location: RAD ?? Current Patient Location: LAB ?? Accession/Order Number: [id number] ?? Exam Date: 05/07/2024 ??08:28 ?Report Date: 05/07/2024 ??13:18 ? At the request of: ?? YASSINE ??JOSEE ? Procedure: ??XR knee LT 3V ? PROCEDURE: XR knee LT 3V ? COMPARISON: None. ? HISTORY: Post Traumatic Osteoarthritis Left Knee ? FINDINGS: ?? BONES:No acute fracture or dislocation. Minimal osteoarthropathy with marginal ? osteophyte formation. ?? SOFT TISSUES:Negative. No visible soft tissue swelling. ?? EFFUSION:None visible. ?? OTHER: Negative. ? XR/XR knee LT 3V ?? IMPRESSION: ? Minimal osteoarthritis ? Electronically authenticated by: MECHE ??WEST ?? Date: 05/07/2024 ??13:18 ? Dictated By: ?Meche Sanchez M.D. ? Signed By: ?05/07/24 1321 ? DD/ 1318 ? TD/TT: ? Probate Clerk: Procedure Note Radiology, Radiologist, MD - 05/07/[address] [address] XRay Report Signed Patient: MARCO ANTONIO REED Jr.MR#: [id number] : 5Acct:[id number] Age/Sex: 68 / MADM Date: 05/07/24 Loc: RAD Attending Dr: YASSINE BECKER Ordering Physician: YASSINE BECKER Date of Service: 05/07/24 Procedure(s): XR knee LT 3V Accession Number(s): [id number] cc: YASSINE BECKER [place] [id number] Patient Name: MARCO ANTONIO REED MRN: [id number] date: 1955 Sex: M Assigned Patient Location: RAD Current Patient Location: LAB Accession/Order Number: [id number] Exam Date: 05/07/2024 08:28 Report Date: 05/07/2024 13:18 At the request of: YASSINE BECKER Procedure: XR knee LT 3V PROCEDURE: XR knee LT 3V COMPARISON: None. HISTORY: Post Traumatic Osteoarthritis Left Knee FINDINGS: BONES:No acute fracture or dislocation. Minimal osteoarthropathy withmarginal osteophyte formation. SOFT TISSUES:Negative. No visible soft tissue swelling. EFFUSION:None visible. OTHER: Negative. XR/XR knee LT 3V IMPRESSION: Minimal osteoarthritis Electronically authenticated by: MECHE SANCHEZ Date: 05/07/2024 13:18 Dictated By: Meche Sanchez M.D. Signed By:05/07/24 1321 DD/ 1318 TD/TT: Probate Clerk: Authorizing ProviderResult TypeResult StatusDanimelisa Becker MDIMG XR PROCEDURES Final Result documented in this encounter Visit Diagnoses Not on filedocumented in this encounter Care Teams Team MemberRelationshipSpecialtyStart DateEnd Date Yassine Becker MD [address] [facility] [address] [place] [address] PCP - GeneralInternal Medicine04/18/23 Safia Fine NP [address] [facility] [address] [place] [address] PCP - [employer]1documented as of this encounter
--- OUTSIDE RECORDS SUMMARY | 2025-09-02 13:21 | XMS_ITS | Clinical Summary ---
Author Organization [facility] Address [address] [place] [address] Care Team Providers Care Er Nurse Name Role Phone Yassine Becker MD Primary Care Provider [phone] Safia Fine COLLEGE ADMINISTRATOR Unavailable Allergies No known active allergies Medications MedicationSigDispense QuantityRefillsLast FilledStart DateEnd DateStatus diclofenac sodium (Voltaren Arthritis Pain) 1 % gel Indications:Post-traumatic osteoarthritis of left kneeApply 2 g topically in the morning and 2 g in the evening and 2 g before bedtime. 100 g 4Active Blood Glucose Calibration (True Metrix Level 1) Low solution Indications:Type 2 diabetes mellitus with stage 3b chronic kidney disease, with long-term current use of insulin (HCC)USE DIRECTED WITH GLUCOSE METER 1 each 4Active atorvastatin (Lipitor) 20 MG tablet Indications:Essential hypertensionTake 1 tablet (20 mg) by mouth Daily 100 tablet 4Active cloNIDine (Catapres) 0.3 MG tablet Indications:Benign essential hypertensionTake 1 tablet (0.3 mg) by mouth in the morning and 1 tablet (0.3 mg) before bedtime. 200 tablet ctive True Metrix Blood Glucose Test test strip Indications:Diabetic mononeuropathy associated with type 2 diabetes mellitus (HCC)TEST THREE TIMES DAILY DIRECTED 300 strip 5Active BD Pen Needle Micro U/F 32G X 6 MM misc Inject under the skin in the morning and at noon and in the evening and before bedtime.5Active finasteride (Proscar) 5 MG tablet Take 5 mg by mouth Daily4Active potassium chloride CR (K-Tab) 20 MEQ ER tablet Indications:HypokalemiaTake 1 tablet (20 mEq) by mouth Daily Do not crush, chew, or split. 90 tablet 5Active Additional Information Patient not taking.Reported on 08/05/2025 Blood Glucose Monitoring Suppl (True Metrix Air Glucose Meter) w/Device kit Indications:Diabetic macular edema (HCC)USE DIRECTED 1 kit 5Active TRUEplus Lancets 33G [facility] Indications:Type 2 diabetes mellitus with stage 3b chronic kidney disease, with long-term current use of insulin ([facility])TEST BLOOD SUGAR THREE TIMES DAILY DIRECTED 300 each 5Active insulin lispro (HumaLOG KWIKPEN) 100 UNIT/ML injection Indications:Type 2 diabetes mellitus with stage 3b chronic kidney disease, with long-term current use of insulin ([facility])INJECT 14 units UNDER THE SKIN DIRECTED PER SLIDING SCALE (DISCARD PEN 28 DAYS AFTER OPENING) 30 mL 5Active amLODIPine (Norvasc) 10 MG tablet Indications:Benign essential hypertensionTake 1 tablet (10 mg) by mouth Daily 100 tablet 308509/6Active Additional Information Patient taking differently:10 mg Oral Daily,(No times of day reported), Reported on 08/05/2025 tiZANidine (Zanaflex) 4 MG tablet Indications:Muscle spasmTake 1 tablet (4 mg) by mouth every 8 (eight) hours if needed for muscle spasms for up to 10 days 30 tablet 5Active zolpidem (Ambien) 10 MG tablet Indications:Insomnia, unspecified typeTAKE 1 TABLET AT BEDTIME NEEDED FOR SLEEP 90 tablet 5Active torsemide (Demadex) 20 MG tablet Indications:Localized swelling of both lower legsTAKE 1 TABLET EVERY DAY 90 tablet 5Active Additional Information Patient taking differently:20 mg Oral Daily,(No times of day reported), Reported on 08/05/2025 tadalafil (Cialis) 20 MG tablet Take 20 mg by mouth Daily as needed for erectile sgcxbsotpxi18/03/2025Active metOLazone (Zaroxolyn) 5 MG tablet Indications:Abdominal swellingTake 1 tablet (5 mg) by mouth Daily for 5 days 5 tablet 5Active insulin aspart (NovoLOG FLEXPEN) 100 UNIT/ML pen Indications:Type 2 diabetes mellitus with hyperglycemia, with long-term current use of insulin (HCC)INJECT 8-10-12 UNITS UNDER SKIN ACCORDING TO MEAL SIZE PLUS SLIDING SCALE #2 (MAX 40 UNITS/DAY) 45 mL /5Active insulin glargine (Lantus SoloStar) 100 UNIT/ML pen Indications:Type 2 diabetes mellitus with hyperglycemia, with long-term current use of insulin (HCC)Inject 48 Units under the skin at bedtime 45 mL 110504/6Active insulin pen needle 31G x 6 mm misc Indications:Type 2 diabetes mellitus with hyperglycemia, with long-term current use of insulin (HCC)USE FOUR TIMES A DAY WITH INSULIN PENS. 400 each /6Active insulin pen needle 31G x 6 mm misc Indications:Type 2 diabetes mellitus with hyperglycemia, with long-term current use of insulin (HCC)USE FOUR TIMES A DAY WITH INSULIN PENS. 400 each /Discontinued(Reorder) insulin aspart (NovoLOG FLEXPEN) 100 UNIT/ML pen Indications:Type 2 diabetes mellitus with hyperglycemia, with long-term current use of insulin (HCC)INJECT 8-10-12 UNITS UNDER SKIN ACCORDING TO MEAL SIZE PLUS SLIDING SCALE #2 (MAX 40 UNITS/DAY) 45 mL /Discontinued(Reorder) insulin glargine (Lantus SoloStar) 100 UNIT/ML pen Indications:Type 2 diabetes mellitus with hyperglycemia, with long-term current use of insulin (HCC)Inject 48 Units under the skin at bedtime 45 mL Discontinued(Reorder) Active Problems ProblemNoted DateDiagnosed DateType 2 diabetes mellitus with severe nonproliferative diabetic retinopathy with macular edema, qplrwevus71/29/2025 Overview (07/22/2025): Noted by BORA Jacobo MD last documented on [id number] Bilateral hearing loss07/09/2024hronic kidney disease, stage 4 (severe) 09/16/2024Post-traumatic osteoarthritis of left knee04/12/2024Type 2 diabetes mellitus with diabetic chronic kidney vvfxquf9210/27/2023bnormal CT scan 09/26/2023Elevated PSA09/26/20233377Pdylhrwytpyp34/04/0222Cmtjjkjqhaiumf86/04/2023 Basal cell carcinoma of chin04/20/2023asal cell carcinoma of skin04/20/2023 Benign non-nodular prostatic hyperplasia with lower urinary tract symptoms 04/20/2023ladder pgcmsxpqtnu50/28/2023hronic esjdultdb17/28/2023ongenital stenosis of inferior vena cava04/20/2023iabetic macular edema04/20/2023iabetic wffxdjztduyqmt83/28/2023Enlarged lpevqftr29/28/2023Hypertensive heart and chronic kidney disease without heart failure, with stage 1 through stage 4 ch ronic kidney disease, or unspecified chronic kidney wlrkafh4204/20/2023 Jqrrhiqplllfujhkddjc02/28/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/28/2023Impotence of organic wbnkfw9504/20/20233203Kmawjyim64/28/2023 Localized swelling of both lower legs04/20/2023Nonproliferative retinopathy of left eye due to type 2 diabetes mtrackuk39/28/2023Obesity (BMI 30-39.9) 04/20/2023eripheral venous dmnyyqulxtomw22/28/2023Stage 3b chronic kidney liivjnt0004/20/2023olyneuropathy due to type 2 diabetes cbtaiilo31/04/2021 Diabetic renal xipyzup5612/06/2016Hyperglycemia due to type 2 diabetes mellitus 12/06/2016Long term current use of infihlt5212/06/2016Lower urinary tract symptoms due to benign prostatic qwgaxkvampo79/17/2017Degeneration of lumbar or lumbosacral intervertebral disc01/03/2012Mixed lzbfupeouxwofw19/12/2012 Asymptomatic varicose veins12/13/2011enign essential juzcrdifyceo74/20/2012 Lumbosacral spondylosis without sarfpnrqvu50/20/2012 Resolved Problems ProblemNoted DateDiagnosed DateResolved DateEssential vedzwpidbaen96/11/2024 07/22/2025Diabetes mellitus without jrghtnjhgvsi77hronic deep vein thrombosis (DVT) of femoral vein/Difficulty swallowing /Syncope and iewuorry11alculus of kidney Encounters DateTypeDepartmentCare EtugUuctjmwspin74/24/2025bstract [facility] [place] [address] [place] [phone] Yassine Becker MD 08/06/2025Refill [facility] [address] [place] [phone] Viry Flores LPN Type 2 diabetes mellitus with hyperglycemia, with long-term current use of insulin (HCC)08/05/2025 1:50 PM EDTOffice Visit [facility] [address] [place] [phone] Lena Bullock MD Type 2 diabetes mellitus with hyperglycemia, with long-term current use of insulin (HCC) (Primary Dx); Primary hypertension; Vitamin D deficiency; Insulin long-term use (HCC); Encounter for dietary consultation; Hyperlipemia, mixed; Chronic kidney disease, stage IV (severe) (HCC); Class 1 obesity due to excess calories with serious comorbidity and body mass index (BMI) of 33.0 to 33.9 in adult08/05/2025Telephone [facility] [place] [address] [place] [phone] Yassine Becker MD 07/31/2025Refill [facility] [address] [place] [phone] Viry Flores LPN Type 2 diabetes mellitus with hyperglycemia, with long-term current use of insulin ([facility])07/26/2025Results Follow-Up [facility] [place] [address] [place] [phone] abdomen pelvis wo IV contrast, POCT Urinalysis dipstick, CBC, Comprehensive metabolic panel07/25/2025 12:30 PM EDTAncillary Procedure [facility] [address] [facility] [address] [place] [address] Stage 4 chronic kidney disease (HCC); Foamy urine; Abdominal distension; Abdominal swelling; Proteinuria, unspecified type; Microscopic nlzwqfjwa93/02/2877Ardlol58/01/2025bstract [facility] [place] [place] [phone] Yassine Becker MD 07/22/2025 2:00 PM EDTOffice Visit [facility] [address] [place] [phone] Guerline Acuña PA Stage 4 chronic kidney disease (HCC) (Primary Dx); Foamy urine; Primary hypertension ; Abdominal distension; Swelling of thigh; Abdominal swelling; Orthopnea; Proteinuria, unspecified type; Microscopic xszscvkdy45/29/2025amboo [facility]sheet [facility] [address] [facility] [address] [place] [phone] Guerline Acuña PA 07/22/20259739Kpyxgl45/18/2025Refill [facility] [place] [address] Guerline Acuña PA Localized swelling of both lower legs06/20/2025 4:30 PM EDTOffice Visit [facility] [address] [facility] [address] [place] [phone] Paul Molina DPM Venous insufficiency (Primary Dx); Diabetes mellitus due to underlying condition with diabetic polyneuropathy, unspecified whether terminal computer operator insulin use (HCC); Pain due to onychomycosis of toenails of both feet06/20/2025amboo flowsheet [facility] [address] [facility] [address] [place] [phone] Paul Molina DPM 06/20/20258955Enuqiy95/27/2025[facility] [place] [address] Guerline Acuña PA Insomnia, unspecified type06/13/2025Travelfrom Last 3 Months Immunizations ImmunizationAdministration DatesNext ZaxPPJ3212/12/2021Influenza, High Dose Seasonal, Preservative Free08/20/2022Tdap12/12/2021 Family History Medical HistoryRelationNameCommentsDiabetesFatherhtnFatherAneurysmMotherDiabetes MotherhtnMotherRelationNameStatusCommentsFatherAliveMotherDeceased Social History Tobacco UseTypesPacks/DayYears UsedDateSmoking Tobacco: [id number] - mokeless Tobacco: Never Tobacco Cessation:Counseling Given: Yes Alcohol UseStandard Drinks/WeekCommentsNot Currently0 (1 standard drink = 0.6 oz pure alcohol)Social Connection and Isolation PanelAnswerDate RecordedIn a typical week, how many times do you talk on the phone with family, friends, or neighbors?More than three times a week12/26/2023How often do you get together with friends or relatives?More than three times a week12/26/2023How often do you attend voodoo or jewish services?More than 4 times per year12/26/2023o you belong to any clubs or organizations such as voodoo groups, unions, fraternal or athletic groups, or school groups?Yes12/26/2023How often do you attend meetings of the clubs or organizations you belong to?Never12/26/2023re you , , , , never , or living with a partner?Living with ogjoaxe1812/26/2023UDIT-CAnswerDate RecordedQ1: How often do you have a drink containing alcohol?Never12/26/2023Q2: How many drinks containing alcohol do you have on a typical day when you are drinking?Patient does not drink 12/26/2023Q3: How often do you have six or more drinks on one occasion?Never 12/26/2023Overall Financial Resource Strain (CARDIA)AnswerDate RecordedHow hard is it for you to pay for the very basics like food, housing, medical care, and heating?Somewhat hard12/26/2023HQ-2AnswerDate RecordedPatient Health Questionnaire-2 Omvtc526[facility] [place] of Occupational Health - Occupational Stress QuestionnaireAnswerDate RecordedDo you feel stress - tense, restless, nervous, or anxious, or unable to sleep at night because yourmind is troubled all the time - these days?Only a cdgcjh4512/26/2023Exercise Vital Sign AnswerDate RecordedOn average, how many days per week do [...] 12 months, how many places have you lived?In the last 12 months, was there a time when you did not have a steady place to sleep or slept in ashelter (including now)?No 12/26/2023Sex and Gender InformationValueDate RecordedSex Assigned at BirthMale 12/29/2024 7:01 AM ESTLegal EntOrkl7702/21/2023 8:31 PM EDTGender IdentityMale 12/29/2024 7:01 AM ESTSexual OnkszuzkyusKbpaaobw78/08/2025 7:01 AM EST Last Filed Vital Signs Vital SignReadingTime TakenCommentsBlood Rhrmvncx912/8810/ 1:53 PM EDT Eywqg761208/05/2025 1:53 PM EDTTemperature--Respiratory Xzjn9183 1:53 PM EDTOxygen Jxrmzudktu76%08/05/2025 1:53 PM EDTInhaled Oxygen Concentration-- Gvulkv692 kg (233 lb)08/05/2025 1:53 PM LSYEqxtyu200.8 cm (5' 10 )08/05/2025 1:53 PM EDTBody Mass Index33.431 1:53 PM EDT Plan of Treatment DateTypeDepartmentCare Team (Latest Contact Info)Brxfeaqmkfm77/20/2025 1:50 PM ESTProcedure Visit [facility] [address] [facility] [address] [place] [address] Paul Molina, DPPino [address] [facility] [address] [place] [address] 11/06/2025 3:00 PM ESTOffice Visit [facility] [address] [place] [phone] Lena Bullock MD [address] [place] [address] Health MaintenanceDue DateLast DoneCommentsCT Unbixyalvhnm1955Colonoscopy 1955FIT1955FOBT1955 4100Nzpduakigcxay1955Pneumococcal Vaccine: 65+ Years (1 of 2 - PCV)1974COVID-19 Vaccine (3 - Pfizer risk series)/, 1Diabetes: Urine Protein Screening , 09/26/2023, 03/17/2022, Additional history existsInfluenza Vaccine (#1)2Diabetes: Retinopathy Hnbftotqx70/15/2025 09/07/2024, 12/29/2023, 12/30/2021, Additional history existsColorectal Cancer Ffewpmrsv04/27/2025FIT-DNA5112/20/2021, 2Diabetes: Hemoglobin A1C, 05/06/2025, 03/07/2025, Additional history exists Medicare Annual Wellness (AWV)6003/07/2025, 07/09/2024, 11/23/2021 Procedures Procedure NamePriorityDate/TimeAssociated DiagnosisCommentsPOCT GLYCOSYLATED HEMOGLOBIN (HGB A1C)Upcjade3408/05/2025 1:54 PM EDT Type 2 diabetes mellitus with hyperglycemia, with long-term current use of insulin (HCC) POCT MXUWGZTRdxjqhs80/13/2025 1:54 PM EDT Type 2 diabetes mellitus with hyperglycemia, with long-term current use of insulin (HCC) CT ABDOMEN PELVIS WO IV CONTRASTHigh Nzqygjnb32/02/2025 12:39 PM EDT Stage 4 chronic kidney disease (HCC) Foamy urine Abdominal distension Abdominal swelling Proteinuria, unspecified type Microscopic hematuria COMPREHENSIVE METABOLIC NRRAITbpuneb78/01/2025 8:04 AM EDT Stage 4 chronic kidney disease (HCC) Primary hypertension Abdominal swelling HLVZqbycru09/01/2025 8:04 AM EDT Primary hypertension Abdominal swelling POCT URINALYSIS VMBZUVYHCowvuhz62/29/2025 2:22 PM EDT Foamy urine DIABETIC RETINOPATHY SCREENING - OU - BOTH CZSOVflxbut83/15/2024 MICROALBUMIN / CREATININE URINE PMQFWHdaqymx27/04/2023 9:19 AM EST Diabetes mellitus without complication (HCC) LAB COLOGUARD?? COLON CANCER FILMZRDftrers70/27/2022 from Last 3 Months or Most Recently Relevant to Health Maintenance Results * POCT glycosylated hemoglobin (Hb A1C) docked device (08/05/2025 1:54 PM EDT) ComponentValueRef RangeTest MethodAnalysis TimePerformed AtPathologist SignatureHemoglobin A1C8.3Specimen (Source)Anatomical Location / Laterality Collection Method / VolumeCollection TimeReceived TimeBloodVenous blood specimen / Wcrlwdj3108/05/2025 1:54 PM EDT Narrative Authorizing ProviderResult TypeResult StatusJordan Valley Medical Centerlisha [facility] MDPOINT OF CARE TEST ENTER/EDIT ORDERABLESFinal Result * POCT glucose manually resulted (08/05/2025 1:54 PM EDT)ComponentValueRef Range Test MethodAnalysis TimePerformed AtPathologist SignatureGlucose Blood, DJH567 mg/dLSpecimen (Source)Anatomical Location / LateralityCollection Method / VolumeCollection TimeReceived TimeBloodCapillary blood specimen / Unknown 08/05/2025 1:54 PM EDT Narrative Authorizing ProviderResult TypeResult StatusJordan Valley Medical Centerlisha Meng [facility] JoseOINT OF CARE TEST ENTER/EDIT ORDERABLESFinal Result * CT abdomen pelvis wo IV contrast (07/25/2025 12:39 PM EDT)Anatomical Region LateralityModalityBody, Pelvis, AbdomenComputed TomographySpecimen (Source) Anatomical Location / LateralityCollection Method / VolumeCollection Time Received Time07/25/2025 2:24 PM EDT Impressions 07/25/2025 3:00 PM EDT Impression: 1. Small pleural effusion is seen on the right. 2. Nephrolith that is not obstructing is seen in the right kidney. Nonspecific perinephric stranding is seen bilaterally. No evidence for hydronephrosis 3. There is no evidence for bowel obstruction, appendicitis or diverticulitis. 4. Diffuse circumferential bladder wall thickening is seen. 5. Enlarged prostate 6. Small hiatal hernia ELECTRONICALLY SIGNED BY: Ирина Capellan DO Narrative 07/25/2025 3:[address] of the abdomen and Pelvis CTDI is 29.36 mGy and DLP is 1479.37 mGy-cm. Technique: History: Chronic kidney disease, stage IV, abdominal distention, intra-abdominal and pelvic swelling, mass and lump, unspecified location Comparison: No prior Findings: Lung bases: A small pleural effusion is seen on the right with atelectasis. There is mild pleural thickening seen on the left with atelectasis. Trace pericardial fluid or pericardial thickening is seen. ABDOMEN: ??Liver: ??Unremarkable. ??No mass. ??Gallbladder and bile ducts: ??Unremarkable. ??No calcified stones. ??No ductal dilation. ??Pancreas: ??Unremarkable. ??No mass. ??No ductal dilation. ??Spleen: ??Unremarkable. ??No splenomegaly. ??Adrenals: ??Unremarkable. ??No mass. ??Kidneys and ureters: ??No hydronephrosis or obstructing stone. A 2 mm calcification is seen in the anterolateral aspect of the right kidney. Mild perinephric stranding is seen that is nonspecific. ??Stomach and bowel: There is a small hiatal hernia. Evaluation of the stomach is limited by under ??distention. ??No small bowel obstruction. ??No mucosal thickening. ? Intraperitoneal space: ??Unremarkable. ??No free air. ??No significant fluid collection. ??Bones/joints: ??No acute fracture. ??No dislocation. Multilevel degenerative changes are seen in the spine. There are sclerotic changes seen from L2-L4 and Schmorl's nodes are also visualized. ??Soft tissues: There are varices seen in the skin. A tiny umbilical hernia is seen that contains fat. ??Vasculature: Unremarkable. ??No abdominal aortic aneurysm. ??Lymph nodes: In the upper abdomen there are small retroperitoneal lymph nodes at the root of the aorta and most 5 to 6 mm short axis.. Nonspecific inguinal lymph nodes are seen in the groin.. PELVIS: ??Appendix: Not clearly visualized. No pericecal stranding or fluid collection seen. ??Bladder: The bladder wall is circumferentially thickened.. ??Reproductive: The prostate gland is enlarged and protrudes into the base of the bladder.. Procedure Note Ирина Capellan DO - 07/25/2025 CT of the abdomen and Pelvis CTDI is 29.36 mGy and DLP is 1479.37 mGy-cm. Technique: History: Chronic kidney disease, stage IV, abdominal distention,intra-abdominal and pelvic swelling, mass and lump, unspecified location Comparison: No prior Findings: Lung bases: A small pleural effusion is seen on the right withatelectasis. There is mild pleural thickening seen on the left withatelectasis. Trace pericardial fluid or pericardial thickening is seen. ABDOMEN: Liver: Unremarkable. No mass. Gallbladder and bile ducts: Unremarkable. No calcified stones. Noductal dilation. Pancreas: Unremarkable. No mass. No ductal dilation. Spleen: Unremarkable. No splenomegaly. Adrenals: Unremarkable. No mass. Kidneys and ureters: No hydronephrosis or obstructing stone. A 2 mmcalcification is seen in the anterolateral aspect of the right kidney.Mild perinephric stranding is seen that is nonspecific. Stomach and bowel: There is a small hiatal hernia. Evaluation of thestomach is limited by under distention. No small bowel obstruction. No mucosal thickening. Intraperitoneal space: Unremarkable. No free air. No significant fluid collection. Bones/joints: No acute fracture. No dislocation. Multileveldegenerative changes are seen in the spine. There are sclerotic changesseen from L2-L4 and Schmorl's nodes are also visualized. Soft tissues: There are varices seen in the skin. A tiny umbilicalhernia is seen that contains fat. Vasculature: Unremarkable. No abdominal aortic aneurysm. Lymph nodes: In the upper abdomen there are small retroperitoneal lymphnodes at the root of the aorta and most 5 to 6 mm short axis.. Nonspecificinguinal lymph nodes are seen in the groin.. PELVIS: Appendix: Not clearly visualized. No pericecal stranding or fluidcollection seen. Bladder: The bladder wall is circumferentially thickened.. Reproductive: The prostate gland is enlarged and protrudes into the baseof the bladder.. IMPRESSION: Impression: 1. Small pleural effusion is seen on the right. 2. Nephrolith that is not obstructing is seen in the right kidney.Nonspecific perinephric stranding is seen bilaterally. No evidence forhydronephrosis 3. There is no evidence for bowel obstruction, appendicitis ordiverticulitis. 4. Diffuse circumferential bladder wall thickening is seen. 5. Enlarged prostate 6. Small hiatal hernia ELECTRONICALLY SIGNED BY: Ирина Capellan DO Authorizing ProviderResult TypeResult StatusGuerline Acuña [facility] PROC[facility] Final Result * (ABNORMAL) CBC (07/24/2025 8:04 AM EDT)ComponentValueRef RangeTest Method Analysis TimePerformed AtPathologist SignatureWHITE BLOOD CELL COUNT9.73.8 - 10.8 Thousand/uLQUESTRED BLOOD CELL COUNT3.70(L)4.20 - 5.80 Million/uLQUEST CLBVLLTVLA09.1(L)13.2 - 17.1 g/dQGSBAACFKEDLDYPS44.1(L)38.5 - 50.0 %QUESTMCV 86.880.0 - 100.0 vFGZALYXNS97.327.0 - 33.0 mgFHMKZEMTW56.5(L)32.0 - 36.0 g/dL QUESTComment: For adults, a slight decrease in the calculated MCHC value (in the range of 30 to 32 g/dL) is most likely not clinically significant; however, it should be interpreted with caution in correlation with other red cell parameters and the patient's clinical condition. RDW16.1(H)11.0 - 15.0 %QUESTPLATELET TZHRS111267 - 400 Thousand/cXRNSVBAWK93.9 7.5 - 12.5 fLQUESTSpecimen (Source)Anatomical Location / LateralityCollection Method / VolumeCollection TimeReceived TimeBloodVenous blood specimen / Unknown 07/24/2025 8:04 AM EDT1 2:45 PM EDT Narrative Resulting Agency Comment Performing Organization Information ?Site ID: [id number] ?Name: [facility] ?Address: [address] [place] [phone] ?Director: Mariela Garcia Authorizing ProviderResult TypeResult StatusGuerline Acuña [facility] BLOOD ORDERABLESFinal ResultPerforming OrganizationAddressCity/State/ZIP CodePhone Number QUEST * (ABNORMAL) Comprehensive metabolic panel (07/24/2025 8:04 AM EDT)Component ValueRef RangeTest MethodAnalysis TimePerformed AtPathologist SignatureGlucose 185(H)65 - 99 mg/dLQUESTComment: ? Fasting reference interval For someone without known diabetes, a glucose value >125 mg/dL indicates that they may have diabetes and this should be confirmed with a follow-up test. BUN52(H)7 - 25 mg/dLQUESTCreatinine4.42(H)0.70 - 1.28 mg/lPHSYKZYBAC42(L)> OR = 60 mL/min/1.76j9RCSQTNWF/CREATININE PLBZU618 - 22 (calc)MJQYTEinjdl485689 - 146 mmol/LQUESTPotassium, Bld3.73.5 - 5.3 mmol/GMUYUFVuxvqkbl56405 - 110 mmol/LQUEST Carbon Hdilltn2778 - 32 mmol/LQUESTCalcium7.2(L)8.6 - 10.3 mg/dLQUESTPROTEIN, TOTAL5.7(L)6.1 - 8.1 g/dLQUESTALBUMIN2.9(L)3.6 - 5.1 g/dLQUESTGLOBULIN2.81.9 - 3.7 g/dL (calc)QUESTALBUMIN/GLOBULIN RATIO1.01.0 - 2.5 (calc)QUESTBILIRUBIN, TOTAL0.20.2 - 1.2 mg/dLQUESTALKALINE ZHZUBDBCSSK8254 - 144 U/KCSXVONIA4012 - 35 U/TDDVCILDP066 - 46 U/LQUESTSpecimen (Source)Anatomical Location / Laterality Collection Method / VolumeCollection TimeReceived TimeBloodVenous blood specimen / Qzlmuhm5307/24/2025 8:04 AM EDT1 2:45 PM EDT Narrative Resulting Agency Comment Performing Organization Information ?Site ID: [id number] ?Name: [facility] ?Address: [address] [place] [phone] ?Director: Mariela Garcia Authorizing ProviderResult TypeResult StatusGuerline Acuña PALAB BLOOD ORDERABLESFinal ResultPerforming OrganizationAddressCity/State/ZIP CodePhone Number [facility] * (ABNORMAL) POCT Urinalysis dipstick (07/22/2025 2:22 PM EDT)ComponentValueRef RangeTest MethodAnalysis TimePerformed AtPathologist SignatureColor, UALight YellowClarity, UAClearGlucose, UAPositiveNegative - 2000(110) ++++ mg/dL Comment:100Bilirubin, UANegativeNegative - 4(70) +++ mg/dLKetones, UANegative Negative - 160(16) ++++ mg/dLSpec Grav, UA1.0051 - 1.03Blood, UAPositive Negative - 50 Henrry/mcLComment:smallpH, UA5.05 - 9Protein, UAPositiveNegative - 2000(20) ++++ mg/dLComment:4+Urobilinogen, UA1.00.2 - 12 mg/dLLeukocytes, UA NegativeNegative - 500+++ Audra/mcLNitrite, UANegativeNegative - Positive Specimen (Source)Anatomical Location / LateralityCollection Method / Volume Collection TimeReceived BrfyShpbo38/29/2025 2:22 PM EDT Narrative Authorizing ProviderResult TypeResult StatusGuerline Acuña [facility] CARE TEST ENTER/EDIT ORDERABLESFinal Result * (ABNORMAL) Diabetic Retinopathy Screening - OU - Both Eyes (09/07/2024) ComponentValueRef RangeTest MethodAnalysis TimePerformed AtPathologist SignatureRESULTSabnAnatomical RegionLateralityModalityHeadOtherSpecimen (Source)Anatomical Location / LateralityCollection Method / VolumeCollection TimeReceived Time09/07/2024 Narrative Authorizing ProviderResult TypeResult StatusYassine Becker [facility] Final Result * Microalbumin / creatinine, urine ratio (09/26/2023 9:19 AM EST)ComponentValue Ref RangeTest MethodAnalysis TimePerformed AtPathologist SignatureCREATININE, RANDOM [id number] - 320 mg/dLQUESTALBUMIN, URINE>600.0See Note: mg/dLQUEST Comment: Reference Range: Reference Range Not established Verified by repeat analysis. ALBUMIN/CREATININE RATIO, RANDOM URINENOTE<30 mcg/mg creatQUESTComment: THE URINE ALBUMIN VALUE IS GREATER THAN 600 mg/dL THEREFORE WE ARE UNABLE TO CALCULATE EXCRETION AND/OR CREATININE RATIO. The ADA defines abnormalities in albumin excretion as follows: Albuminuria Category ?Result (mcg/mg creatinine) Normal to Mildly increased <30 Moderately increased ? 30-299 Severely increased > OR = 300 The ADA recommends that at least two of three specimens collected within a 3-6 month period be abnormal before considering a patient to be within a diagnostic category. Specimen (Source)Anatomical Location / LateralityCollection Method / Volume Collection TimeReceived TimeUrineUrine specimen obtained by clean catch procedure / Xpxtdax0409/26/2023 9:19 AM EST09/26/2023 4:47 PM EST Narrative [facility] - 09/27/2023 2:27 PM EST FASTING:YES FASTING: YES Resulting Agency Comment Performing Organization Information ?Site ID: QPT ?Name: [facility] ?Address: [address] [place] [address], [address] [place] [phone] ?Director: Narendra Ragsdale MD Authorizing ProviderResult TypeResult StatusYassine DOTSON URINE ORDERABLESFinal ResultPerforming OrganizationAddressCity/State/ZIP CodePhone Number [facility] * Cologuard?? colon cancer screening (10/19/2022)ComponentValueRef RangeTest MethodAnalysis TimePerformed AtPathologist SignatureCOLOGUARD RESULT REPORTABLECancelled - Order ExpiredNot ApplicableN[facility] Specimen (Source)Anatomical Location / LateralityCollection Method / Volume Collection TimeReceived Time10/19/2022 Narrative Authorizing ProviderResult TypeResult StatusYassine DOTSON MOLECULAR DIAGNOSTICS ORDERABLESFinal ResultPerforming OrganizationAddressCity/State/ZIP CodePhone Number [facility] from Last 3 Months or Most Recently Relevant to Health Maintenance Insurance Care Teams Team MemberRelationshipSpecialtyStart DateEnd Yassine Becker MD [address] [place] [id number] [facility] - [facility]23 Safia Fine NP 112 [facility] [address] [place] [address] PCP - [facility]10/24/22
--- OUTSIDE RECORDS SUMMARY | 2025-09-02 13:21 | XMS_ITS | Encounter Summary ---
Author Organization [facility] Address [address] [place] [address] Care Team Providers Care Rn Home Care Name Role Phone Yassine Becker MD Primary Care Provider [phone] Safia Fine COAT FINISHER Unavailable Encounter Details DateTypeDepartmentCare Team (Latest Contact Info)Jvuckisfciz85/12/2024Clinisync Result Encounter [facility] Unsolicited Provider, Generic External Data Social History Tobacco UseTypesPacks/DayYears UsedDateSmoking Tobacco: [id number] - 1990Smokeless Tobacco: NeverAlcohol UseStandard Drinks/WeekCommentsNot Currently0 (1 standard drink = 0.6 oz pure alcohol)Social Connection and Isolation PanelAnswerDate RecordedIn a typical week, how many times do you talk on the phone with family, friends, or neighbors?More than three times a week 12/26/2023How often do you get together with friends or relatives?More than three times a week12/26/2023How often do you attend congregation or pentecostal services?More than 4 times per year12/26/2023o you belong to any clubs or organizations such as congregation groups, unions, fraternal or athletic groups, or school groups?Yes12/26/2023How often do you attend meetings of the clubs or organizations you belong to?Never12/26/2023re you , , , , never , or living with a partner?Living with llejsfg5612/26/2023 AUDIT-CAnswerDate RecordedQ1: How often do you have [...] heating?Somewhat hard 12/26/2023HQ-2AnswerDate RecordedPatient Health Questionnaire-2 Score0 07/22/2025[facility] - Occupational Stress QuestionnaireAnswerDate RecordedDo you feel stress - tense, restless, nervous, or anxious, or unable to sleep at night because yourmind is troubled all the time - these days?Only a wedlhu9712/26/2023Exercise Vital SignAnswerDate Recorded On average, how many [...] months, how many places have you lived?1 12/26/2023In the last 12 months, was there a time when you did not have a steady place to sleep or slept in ashelter (including now)?No12/26/2023Sex and Gender InformationValueDate RecordedSex Assigned at WftzjQcbz55/08/2025 7:01 AM EST Legal UieEefl1602/21/2023 8:31 PM EDTGender EcxsnedlByzf44/08/2025 7:01 AM EST Sexual TvniodmbzxsLoxnoiwg01/08/2025 7:01 AM ESTdocumented as of this encounter Functional Status * Over the past 2 weeks, how often have you been bothered by any of the following problems?QuestionAnswerDate of AssessmentAuthorLittle interest or pleasure in doing thingsNot at all07/22/2025 2:03 PM EDTVoss, Dominga, STRINGED INSTRUMENT REPAIRER Feeling down, depressed, or hopelessNot at all07/22/2025 2:03 PM EDTVoss, Dominga, LPNPatient Health Questionnaire-2 Ykbdh603 2:03 PM EDTVoss, Dominga STRINGED INSTRUMENT REPAIRER documented as of this encounter Plan of Treatment DateTypeDepartmentCare Team (Latest Contact Info)Umjmuamtods62/20/2025 1:50 PM ESTProcedure Visit [facility] [address] [place] [id number] Paul Molina DPM [facility] [facility] [place] [address] 11/06/2025 3:00 PM ESTOffice Visit [facility] [address] [place] [address] Lena Bullock MD [address] [place] [address] documented as of this encounter Procedures Procedure NamePriorityDate/TimeAssociated DiagnosisCommentsUS RENAL AND BLADDER 10/04/2024 4:57 AM EST documented in this encounter Results * US RENAL AND BLADDER (10/04/2024 4:57 AM EST)Anatomical RegionLaterality ModalityRadiographic ImagingSpecimen (Source)Anatomical Location / Laterality Collection Method / VolumeCollection TimeReceived Time10/04/2024 4:57 AM EST Narrative 10/04/2024 5:00 AM EST [facility] ?[address] ? [place], [facility] ? Ultrasound Report ? Signed ? Patient: REGGIE,MARCO ANTONIO C Jr. ?MR#: [id number] ?? : 1955 ?Acct:[id number] ?? Age/Sex: 69 / M ?ADM Date: 10/03/24 ?? Loc: US ? Attending Dr: Betty Salinas M.D. ? Ordering Physician: Betty Salinas M.D. ?? Date of Service: 10/03/24 ?? Procedure(s): US renal bladder ?? Accession Number(s): [id number] ? cc: YASSINE BECKER ; Betty Salinas M.D. ? [facility] ? [address] ? [place] [address] ? Patient Name: ?? MARCO ANTONIO C BALBINAINO ? MRN: [facility]:[id number] ? date: 1955 ?Sex: M ?? Assigned Patient Location: US ?? Current Patient Location: ? Accession/Order Number: [id number] ?? Exam Date: 10/03/2024 ??09:00 ?Report Date: 10/04/2024 ??04:57 ? At the request of: ?? BETTY ??RITA ? Procedure: ??US renal bladder ? EXAMINATION: US renal bladder ? HISTORY: Kidney Disease, BPH With Obstruction ? COMPARISON: CT abdomen pelvis 10/23/2019 ? TECHNIQUE: Ultrasound examination was performed of the kidneys and urinary ?? bladder. ? FINDINGS: ? RIGHT KIDNEY: No evidence of pelvocaliectasis, mass, or calculi. Normal ?? parenchymal echogenicity. No significant cortical thinning. Color Doppler ?? demonstrates blood flow within the kidney. Kidney: 8.9 x 5.4 x 5.7 cm ? LEFT KIDNEY: No evidence of pelvocaliectasis, mass, or calculi. Normal ?? parenchymal echogenicity. No significant cortical thinning. Color Doppler ?? demonstrates blood flow within the kidney. Kidney: 9.6 x 5.4 x 6.1 cm. ? BLADDER: No visible wall thickening, mass, or calculi. Post void residual: 15 ?? mL. ? URETERAL JETS: Visualized bilaterally. ?? OTHER: Large heterogeneous and irregular prostate, at least 7.1 x 4.8 x 5.1 ?? cm. ? US/US renal bladder ?? IMPRESSION: ? 1. Normal ultrasound appearance of the kidneys. ?? 2. Large heterogeneous prostate protruding into the bladder. ? Electronically authenticated by: PHILIP ??BILL ?? Date: 10/04/2024 ??04:57 ? Dictated By: ?Philip Payne M.D. ? Signed By: ?10/04/240 ? DD/ 0457 ? TD/TT: ? Garment Steamer: Procedure Note Radiology, Radiologist, MD - 10/04/2024 [place] [address] Ultrasound Report Signed Patient: MARCO ANTONIO REED Jr.MR#: [id number] : 5Acct:[id number] Age/Sex: 69 / MADM Date: 10/03/24 Loc: US Attending Dr: Betty Salinas M.D. Ordering Physician: Betty Salinas M.D. Date of Service: 10/03/24 Procedure(s): US renal bladder Accession Number(s): [id number] cc: YASSINE BECKER ; Betty Salinas M.D. The [place] [id number] Patient Name: MARCO ANTONIO REED MRN: [id number] date: 1955 Sex: M Assigned Patient Location: Current Patient Location: Accession/Order Number: [id number] Exam Date: 10/03/2024 09:00 Report Date: 10/04/2024 04:57 At the request of: BETTY SALINAS Procedure: US renal bladder EXAMINATION: US renal bladder HISTORY: Kidney Disease, BPH With Obstruction COMPARISON: CT abdomen pelvis 10/23/2019 TECHNIQUE: Ultrasound examination was performed of the kidneys and urinary bladder. FINDINGS: RIGHT KIDNEY: No evidence of pelvocaliectasis, mass, or calculi. Normal parenchymal echogenicity. No significant cortical thinning. Color Doppler demonstrates blood flow within the kidney. Kidney: 8.9 x 5.4 x 5.7 cm LEFT KIDNEY: No evidence of pelvocaliectasis, mass, or calculi. Normal parenchymal echogenicity. No significant cortical thinning. Color Doppler demonstrates blood flow within the kidney. Kidney: 9.6 x 5.4 x 6.1 cm. BLADDER: No visible wall thickening, mass, or calculi. Post void residual:15 mL. URETERAL JETS: Visualized bilaterally. OTHER: Large heterogeneous and irregular prostate, at least 7.1 x 4.8 x5.1 cm. US/US renal bladder IMPRESSION: 1. Normal ultrasound appearance of the kidneys. 2. Large heterogeneous prostate protruding into the bladder. Electronically authenticated by: PHILIP PAYNE Date: 10/04/2024 04:57 Dictated By: Philip Payne M.D. Signed By:10/04/24 0500 DD/ 0457 TD/TT: Garment Steamer: Authorizing ProviderResult TypeResult StatusGeneric External Data ProviderIMG XR PROCEDURESFinal Result documented in this encounter Visit Diagnoses Not on filedocumented in this encounter Care Teams Team MemberRelationshipSpecialtyStart DateEnd Date Yassine Becker MD [address] [place] [facility] [address] [place] [address] PCP - GeneralInternal Medicine04/18/23 Safia Fine NP [address] [place] [address] [address] PCP - [employer]1documented as of this encounter
--- OUTSIDE RECORDS SUMMARY | 2025-09-02 13:32 | XMS_ITS | CCD ---
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 32-51-3554DcmbnlxsBkaob connective tissue disease (2 sources)Spasm; Translations: [Other muscle spasm]20-92-9772CelbowzlVbfvj connective tissue disease (2 sources)Swelling of lower limb; Translations: [Other specified soft tissue disorders]91-13-0717JtsyvgavXzdum diseases of bladder and urethra (20 sources)Hypertrophy of bladder; Translations: [Other specified disorders of bladder]Onset: 466737-07-0806DdejagiZssyk diseases of kidney and ureters (2 sources)Secondary hyperparathyroidism; Translations: [Secondary hyperparathyroidism of renal origin]22-78-6630UqfiyauZquxz diseases of kidney and ureters (1 source)Urinary tract obstruction; Translations: [Other obstructive and reflux uropathy]Onset: 56-67-5748ZfpltptdBygye diseases of kidney and ureters (1 source)Disorder of kidney and/or ureter; Translations: [Disorder of kidney and ureter, unspecified]Onset: 39-88-4853LegjfaltLqujd diseases of kidney and ureters (4 sources)Kidney umtmssq58-26-2737KqeqwkghAvban diseases of veins and lymphatics (2 sources)Vascular insufficiency; Translations: [Venous insufficiency (chronic) (peripheral)]06-47-9644QhtbqiojNpqlr ear and sense organ disorders (20 sources)Bilateral hearing loss; Translations: [Unspecified hearing loss, bilateral]Onset: 212674-67-0486LqnwqhxKryzv ear and sense organ disorders (2 sources)Tinnitus of left ear; Translations: [Tinnitus, left ear]01-03-2025 EpisodicOther gastrointestinal disorders (1 source)Constipation; Translations: [Constipation, unspecified]EpisodicOther gastrointestinal disorders (1 source)Dysphagia, unspecifiedEpisodicOther gastrointestinal disorders (1 source)Constipation, unspecifiedEpisodicOther gastrointestinal disorders (6 sources)Swollen abdomen; Translations: [Intra-abdominal and pelvic swelling, mass and lump, unspecified site]42-36-1144YzluccyvBzayx gastrointestinal disorders (4 sources)Abdominal distension ; Translations: [Abdominal distension (gaseous)] 89-11-0937AodubbkwJgzsg lower respiratory disease (3 sources)Shortness of breath; Translations: [SHORTNESS OF BREATH]Onset: 53-19-9416XnrqkuylDslmi lower respiratory disease (1 source)Dyspnea, unspecified; Translations: [DYSPNEA UNSPECIFIED]Onset: 30-56-8855NfandmlmKucjc lower respiratory disease (2 sources)Orthopnea; Translations: [Orthopnea]90-89-5159EfgtdubkFfnbc male genital disorders (8 sources)Male erectile dysfunction, unspecified; Translations: [Erectile dysfunction]Onset: 45-71-7426VsunteuFqyii male genital disorders (20 sources)Secondary erectile dysfunction; Translations: [Male erectile dysfunction, unspecified]Onset: 431076-88-5579ZfgltqcXmvfq nutritional; endocrine; and metabolic disorders (6 sources)Obesity caused by energy imbalance; Translations: [Class 1 obesity due to excess calories with serious comorbidity and body mass index (BMI) of 34.0 to 34.9 in adult]10-59-8137OheaqbtRidfl nutritional; endocrine; and metabolic disorders (20 sources)Body mass index 30+ - obesity; Translations: [Obesity, unspecified] Onset: 168160-10-4583QosvvxgYkokc screening for suspected conditions (not mental disorders or infectious disease) (20 sources)Imaging result abnormal; Translations: [Abnormal findings on diagnostic imaging of other specified body structures]Onset: 59-28-3752Redysvo Other upper respiratory infections (20 sources)Chronic sinusitis; Translations: [Chronic sinusitis, unspecified] Onset: 147011-54-7336DswdohrOpyejq media and related conditions (3 sources)Unspecified perforation of tympanic membrane, left ear; Translations: [Acute serous otitis media ofleft ear]Onset: 410903-23-0771Qtbrpacd Phlebitis; thrombophlebitis and thromboembolism (20 sources)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; Translations: [Chronic embolism and thrombosis of unspecified femoral vein]Onset: 04-20-2023 Resolved: 558947-66-8447DkifmvuPdczpvdw codes; unclassified (1 source)Early satiety; Translations: [Early satiety]EpisodicResidual codes; unclassified (1 source)Early satietyEpisodicRheumatoid arthritis and related disease (2 sources)Rheumatoid arthritis; Translations: [Rheumatoid arthritis, unspecified]48-80-8759HbtuumxNltsxwtdn and history of mental health and substance abuse codes (2 sources)Tobacco use and exposure - byrigqw27-70-1486MqxkavzIyekfamem and history of mental health and substance abuse codes (3 sources)Personal history of nicotine dependence; Translations: [Tobacco use and exposure - finding]Onset: 264810-45-8466DzbnbfldWerefdsgrqh; intervertebral disc disorders; other back problems (20 sources)Degeneration of lumbosacral intervertebral disc; Translations: [Degeneration of lumbar or lumbosacral intervertebral disc]Onset: 12-13-2011 22-45-6994KfmzgvdGrmkkpmvjho; intervertebral disc disorders; other back problems (2 sources)Acute thoracic back pain; Translations: [Pain in thoracic spine] 11-99-7449HdwjldemDnhmfnpcgkp injury; contusion (1 source)Contusion of left upper arm, initial encounter; Translations: [Traumatic hematoma of left upper arm]54-04-8324IgskvbscLvznhjv on above:Problem List clean-up per request of Phys. EHR CmteUnclassified (1 source)Contusion of left upper arm, initial encounter; Translations: [Contusion of left upper arm, initialencounter]Onset: 33-45-2485Cxxvnlykcopz (1 source)Benign prostatic hyperplasia with lower urinary tract symptoms; Translations: [Benign prostatic hyperplasia with lower urinary tract symptoms] Onset: 24-68-2084Xxddmrpucgeh (1 source)Asymptomatic microscopic hgrkbffyg67-46-0232 Past or Other Problems Problem ClassificationProblemDateDocumented DateEpisodic/ChronicCalculus of urinary tract (20 sources)Kidney stone; Translations: [Calculus of kidney]Onset: 12-13-2011 Resolved: 283651-47-6768NsvwaxikYrsaarmf mellitus without complication (20 sources)Type 2 diabetes mellitus; Translations: [Type 2 diabetes mellitus without complications]Onset: 01-04-2023 Resolved: 868427-91-8327ZumclfwSxxytddqkptyj symptoms and ill-defined conditions (20 sources)Microscopic hematuria; Translations: [Other microscopic hematuria] Onset: 38-45-5438YgvzcqykIcqea aftercare (20 sources)Long-term current use of insulin; Translations: [nursing home (current) use of insulin]Onset: 381602-33-0134QlhmxyqoIeksm diseases of veins and lymphatics (20 sources)Peripheral venous insufficiency; Translations: [Venous insufficiency (chronic) (peripheral)]Onset: 582676-40-7388HcqvyfhuFcvcy gastrointestinal disorders (20 sources)Dysphagia; Translations: [Dysphagia, unspecified]Onset: 04-20-2023 Resolved: 788361-94-9818VzprdqnfRospu non-epithelial cancer of skin (20 sources)Basal cell carcinoma of chin; Translations: [Basal cell carcinoma of skin of other parts of face]Onset: 353045-72-9355IfyuhgdjQfizp screening for suspected conditions (not mental disorders or infectious disease) (20 sources)Raised prostate specific antigen; Translations: [Elevated prostate specific antigen [PSA]]Onset: 95-56-0614BfboqycySxipr skin disorders (20 sources)Bilateral localized swelling of lower legs; Translations: [Localized swelling, mass and lump, lowerlimb, bilateral]Onset: EpisodicResidual codes; unclassified (20 sources)Insomnia; Translations: [Insomnia, unspecified]Onset: 04-20-2023 67-90-5749ChxolloiEvvqsbc (20 sources)Syncope and collapse; Translations: [Syncope and collapse]Onset: 09-09-2022 Resolved: 609562-50-9426ZdxzkndaFydvdzchmwoc (2 sources)Patient encounter lweoyi25-32-6845Iyfbsmoensav (2 sources)Urine -47-2511Mitquvbd veins of lower extremity (20 sources)Venous varices; Translations: [Asymptomatic varicose veins of unspecified lower extremity]Onset: 564222-32-3253Thscpsbo Results Test NameValueInterpretationReference RangeFacilityGlucose (Bld) [Mass/Vol] Ordered By: Idalia Vaughn on 33-06-6179Ylglgcu Blood, YYJ671 mg/dLNOMT HealthcareLaboratory - Hematology and Cell countson 14-18-7171SlG9n (Bld) [Mass fraction]8.3 %[facility] HospitalNo Panel InformationOrdered By: Idalia Vaughn on 89-86-7441JCZP HealthcareCT ABDOMEN PELVIS WO IV CONTRASTon 05-16-5379NC ABDOMEN PELVIS WO IV CONTRASTCT of the abdomen and Pelvis CTDI is [...] and bile ducts: Unremarkable. No calcified stones. No ductal dilation. Pancreas: Unremarkable. No mass. No ductal dilation. Spleen: Unremarkable. No splenomegaly. Adrenals: Unremarkable. No mass. Kidneys and ureters: No hydronephrosis or obstructing stone. A 2 mm calcification is seen in the anterolateral aspect of the right kidney. Mild perinephric stranding is seen that is nonspecific. Stomach and bowel: There is a small hiatal hernia. Evaluation of the stomach is limited by under distention. No small bowel obstruction. No mucosal thickening. Intraperitoneal space: Unremarkable. No free air. No significant fluid collection. Bones/joints: No acute fracture. No dislocation. Multilevel degenerative changes are seen in the spine. There are sclerotic changes seen from L2-L4 and Schmorl's nodes are also visualized. Soft tissues: There are varices seen in the skin. A tiny umbilical hernia is seen that contains fat. Vasculature: Unremarkable. No abdominal aortic aneurysm. Lymph nodes: In the upper abdomen there are small retroperitoneal lymph nodes at the root of the aorta and most 5 to 6 mm short axis.. Nonspecific inguinal lymph nodes are seen in the groin.. PELVIS: Appendix: Not clearly visualized. No pericecal stranding or fluid collection seen. Bladder: The bladder wall is circumferentially thickened.. Reproductive: The prostate gland is enlarged and protrudes into the base of the bladder.. IMPRESSION: Impression: 1. Small pleural [...] 6. Small hiatal hernia ELECTRONICALLY SIGNED BY: Mounika Wilson AvailableCBC (H/H, RBC, INDICES, WBC, PLT)on 50-10-2153Cmiboucufxa distribution width (RBC) [Ratio]16.1 %High11.0-15.0Quest DiagnosticsComment on above:Performed By: #### 8292, 40524 #### [facility] [address] [place] [address] [employer]: Mariela Hawthorne FlatiHematocrit (Bld) [Volume fraction]32.1 %Low 38.5-50.0Quest DiagnosticsComment on above:Performed By: #### 0153, 20908 #### [facility] [address] [place] [address] [employer]: Mariela Hawthorne FlatiHemoglobin (Bld) [Mass/Vol]10.1 g/dLLow 13.2-17.1Quest DiagnosticsComment on above:Performed By: #### 1759, 81295 #### [facility] [address] [place] [address] [employer]: Mariela Hawthorne FlatiMCH (RBC) [Entitic mass]27.3 cjDtgiwv94.0-33.0 Quest DiagnosticsComment on above:Performed By: #### 1759, 83428 #### [facility] [address] [employer]: Mariela ShawiMCHC (RBC) [Mass/Vol]31.5 g/dLLow32.0-36.0 Quest DiagnosticsComment on above:Result Comment: For adults, a slight decrease in the calculated MCHC value (in the range of 30 to 32 g/dL) is most likely not clinically significant; however, it should be interpreted with caution in correlation with other red cell parameters and the patient's clinical condition.Performed By: #### 1759, 81174 #### [facility] [address] [place] [address] [employer]: Mariela ShawiMCV (RBC) [Entitic vol]86.8 mBOnbyxm22.0-100.0 Quest DiagnosticsComment on above:Performed By: #### 1759, 92130 #### [facility] [address] [place] [address] [employer]: Mariela ShawiPlatelet mean volume (Bld) [Entitic vol]10.9 fLNormal7.5-12.5Quest DiagnosticsComment on above:Performed By: #### 1759, 08161 #### [facility] [address] [place] [address] [employer]: Mariela Hawthorne FlatiPlatelets (Bld) [#/Vol]240 10*3/uLNormal 140-400Quest DiagnosticsComment on above:Performed By: #### 1759, 28905 #### [facility] [address] [place], [place] [id number] [employer]: Mariela ShawiRBC ([facility]) [#/Vol]3.70 10*6/uLLow4.20-5.80Quest DiagnosticsComment on above:Performed By: #### 1759, 89341 #### [facility] [address] [place] [address] [employer]: Mariela ShawiWBC ([facility]) [#/Vol]9.7 10*3/uLNormal3.8-10.8 Quest DiagnosticsComment on above:Performed By: #### 1759, 26877 #### [facility] [address] [place] [address] [employer]: Mariela ShawiCOMPREHENSIVE METABOLIC PANELon 07-24-2025 Albumin [Mass/Vol]2.9 g/dLLow3.6-5.1Quest DiagnosticsComment on above:Performed By: #### 1759, 98430 #### [facility] [address] [place] [address] [employer]: Mariela ShawiAlbumin/Globulin [Mass ratio]1.0 {ratio}Normal 1.0-2.5Quest DiagnosticsComment on above:Performed By: #### 1759, 68261 #### [facility] [address] [place], [place] [id number] [employer]: Mariela ShawiALP [Catalytic activity/Vol]96 U/YIdqlic35-395 Quest DiagnosticsComment on above:Performed By: #### 1759, 60460 #### [facility] [address] [place], [place] [id number] [employer]: Mariela ShawiALT [Catalytic activity/Vol]16 U/LNormal9-46 Quest DiagnosticsComment on above:Performed By: #### 1759, 39355 #### [facility] [address] [place], [place] [id number] [employer]: Mariela R FlatiAST [Catalytic activity/Vol]12 U/COknkxc13-79 Quest DiagnosticsComment on above:Performed By: #### 1759, 48877 #### [facility] [address] [place] [address] [employer]: Mariela Marine FlatiBilirubin [Mass/Vol]0.2 mg/dLNormal0.2-1.2 Quest DiagnosticsComment on above:Performed By: #### 1759, 70922 #### [facility] [address] [place] [address] [employer]: Mariela R FlatiCalcium [Mass/Vol]7.2 mg/dLLow8.6-10.3Quest DiagnosticsComment on above:Performed By: #### 1759, 25442 #### [facility] [address] [employer]: Mariela Hawthorne FlatiChloride [Moles/Vol]110 mmol/MKjntqw10-486 Quest DiagnosticsComment on above:Performed By: #### 1759, 65378 #### [facility] [address] [place] [address] [employer]: Mariela R FlatiCO2 [Moles/Vol]22 mmol/BEapaxo15-29Nxogs DiagnosticsComment on above:Performed By: #### 1759, 26282 #### [facility] [address] [employer]: Mariela Hawthorne FlatiCreatinine [Mass/Vol]4.42 mg/dLHigh0.70-1.28 Quest DiagnosticsComment on above:Performed By: #### 1759, 35918 #### [facility] [address] [place] [address] [employer]: Mariela Hawthorne FlatiGFR/1.73 sq M.predicted among non-blacks MDRD (S/P/Bld) [Vol rate/Area]14 mL/min/{1.73_m2}Low> OR = 60Quest DiagnosticsComment on above:Performed By: #### 1759, 50417 #### [facility] [address] [place], [place] [id number] [employer]: Mariela Hawthorne FlatiGlobulin (S) [Mass/Vol]2.8 g/dLNormal1.9-3.7 Quest DiagnosticsComment on above:Performed By: #### 1759, 39214 #### [facility] [address] [place] [address] [employer]: Mariela Hawthorne FlatiGlucose [Mass/Vol]185 mg/bCFjnz41-92Xotjy DiagnosticsComment on above:Result Comment: Fasting reference interval For someone without known diabetes, a glucose value >125 mg/dL indicates that they may have diabetes and this should be confirmed with a follow-up test.Performed By: #### 1759, 54902 #### [facility] [address] [place] [address] [employer]: Mariela Hawthorne FlatiPotassium [Moles/Vol]3.7 mmol/LNormal3.5-5.3 Quest DiagnosticsComment on above:Performed By: #### 1759, 31706 #### [facility] [address] [place] [address] [employer]: Mariela Hawthorne FlatiProtein [Mass/Vol]5.7 g/dLLow6.1-8.1Quest DiagnosticsComment on above:Performed By: #### 1759, 72482 #### [facility] [address] [place] [address] [employer]: Mariela Hawthorne FlatiSodium [Moles/Vol]142 mmol/RYnclse179-673Fuive DiagnosticsComment on above:Performed By: #### 1759, 96928 #### [facility] [address] [place], [place] [id number] [employer]: Mariela Hawthorne FlatiUrea nitrogen [Mass/Vol]52 mg/dLHigh7-25Quest DiagnosticsComment on above:Performed By: #### 1759, 80408 #### [facility] [address] [place], [place] [id number] [employer]: Mariela Hawthorne FlatiUrea nitrogen/Creatinine [Mass ratio]12 mg/mg Normal6-22Quest DiagnosticsComment on above:Performed By: #### 1759, 72529 #### [facility] [address] [place] [address] [employer]: Mariela ShawiUrinalysis macro (dipstick) panel (U)on 39-82-8265Oecindeuw, UANegativeNegative - 4(70) +++ mg/dLNOMS HealthcareBlood, UAPositiveNegative - 50 Henrry/mcLNOMS HealthcareComment on above:smallClarity, UA ClearNOMS HealthcareColor, UALight YellowNOMS HealthcareGlucose, UAPositive Negative - 2000(110) ++++ mg/dLNOMS HealthcareComment on above:100Interpretation and review of laboratory resultsAbnormalNOMT HealthcareKetones, UANegative Negative - 160(16) ++++ mg/dLNOMS HealthcareLeukocytes, UANegativeNegative - 500+++ Audra/mcLNOMS HealthcareNitrite, UANegativeNegative - PositiveNOMS HealthcarepH, UA55 - 9NOMS HealthcareProtein, UAPositiveNegative - 2000(20) ++++ mg/dLNOMS HealthcareComment on above:4+Spec Grav, UA1.0051 - 1.03N[facility] Healthcare Urobilinogen, UA1.00.2 - 12 mg/dLNOTwo Rivers Psychiatric HospitalNOMT HealthcareGlucose (Bld) [Mass/Vol]Ordered By: Idalia Vaughn on 43-15-4251Khtknji Blood, RRZ495 mg/dLNOMT HealthcareLaboratory - Hematology and Cell countson 50-47-4501AxA8n (Bld) [Mass fraction]7.9 %[facility] HealthcareNo Panel InformationOrdered By: Idalia Vaughn on 97-72-5523TAHO HealthcareUrology Office/Clinic Noteon 70-82-4858Wjkigwb Office/Clinic NoteUrology Office/Clinic Note Chief Complaint follow up HPI Staff 6 month f/u. Previous dx: BPH with obstruction/LUTS, ED, kidney disease, elevated PSA, microhematuria, gross hematuria. *Finasteride 5mg qd and Cialis 10-20mg orn needs refill sent to [facility] please refill all meds Restarted Tamsulosin 0.4mg qd at prior OV PSA 11/27/24 - 2.2 ANDREW 10/03/24 [facility]. denies pain/burning denies visible blood denies flank pain IPSS: 11 SHIMS: 5 History of Present Illness Tests reviewed: UA, PSA, cysto I have reviewed the previous health record [...] See HPI. Physical Exam Vitals & Measurements HR: 70(Peripheral) RR: 16 BP: 138/82 HT: 70 in HT: 179 cm WT: 108.9 kg WT: 240.083 lb BMI: 33.99 General Appearance: alert, no distress, well nourished, well developed adult. Assessment/Plan 69 year old male with hx BPH with LUTS, elevated PSA, microscopic hematuria, and gross hematuria 6 wks after starting blood thinners. Here for follow up. 1. BPH with obstruction/lower urinary tract symptoms (N40.1: Benign prostatic hyperplasia with lower urinary tract symptoms) PVR (cc): 10/12/23 - 108 11/30/23 - 70 S/p TURP 11/10/[address] Conley - benign. Cysto 01/17/23 - Severe bilobar hypertrophy L>>R. Significant L lateral lobe intravesical protrusion~3-4cm. Mild trabeculation. Prostate 90 g ANDREW 10/03/24 [facility]. IPSS 11 (11). Taking Flomax 0.4 mg qd and Finasteride 5 mg qd. Both working well. Does have some mild retrograde ejaculation from Flomax. Discussed outlet procedures. Due to large size and severe intravesical protrusion, may benefit fromRASP rather than Aquablation, would repeat scope to re-assess. -Pt wishes to continue medical management for now -Follow up 1 yr or sooner if needed. Pt understands and agrees with plan. 2. Erectile dysfunction (N52.9: Male erectile dysfunction, unspecified) ENRIQUE 5 (2). Working adequately, desires rx for 20 mg -Cont Cialis 10-20mg prn, new rx for 20 mg sent per pt request. Risks discussed 3. Elevated PSA (R97.20: Elevated prostate specific antigen [PSA]) PSA: 10/21/16 - 13.0 03/17/22 - 6.01 10/06/22 - 5.50 & 45%, PSAD 0.05 11/30/23 - started Finasteride 11/27/24 - 2.20 (4.40) No fam hx of prostate ca. Prostate MRI 12/13/22 - Neg. Prostate volume 108 cc. PSA decreased. Must double level since on finasteride. Overall still lower from prior, low PSAD. -Will cont to monitor annual PSA 4. Asymptomatic microscopic hematuria (R31.21: Asymptomatic microscopic hematuria) Previous neg cysto, CT, and cytology. UA shows small blood wo signs of infection. Denies gross hematuria. -Pt knows to notify the office if they were to experiences gross hematuria or clots Follow-up With When Contact Information Jeff HILL, Betty Tineo, URL, URO Additional Instructions: 1 yr with PSA F&T (nurse visit) Patient Education Benign Prostatic Hyperplasia I, Edda Ayon, personally scribed for Dr. Aguilar on 04/24/2025 10:43:33. . Documentation recorded by the scribEdda tran, accurately reflects the services(s) I performed and decisions made by me. Authenticated by Dr. Aguilar on 04/24/2025 12:18:06. Problem List/Past Medical History Ongoing Abnormal CT scan Asymptomatic microscopic hematuria BPH with obstruction/lower urinary tract symptoms Diabetes mellitus, type 2 Elevated PSA Erectile dysfunction Hypertension Kidney disease Microhematuria Historical Bladder hypertrophy BPH (benign prostatic hyperplasia) Procedure/Surgical History Cystoscopy (01/17/2023), CEIOL - Cataract extraction and insertion of intraocular lens (06/15/2022), TURP - Transurethral resection of prostate (11/10/2016). Medications amLODIPine 5 mg Tab, 5 mg= 1 tab(s), Oral, Daily atorvastatin 20 mg Tab Cialis 10 mg Tab, 10 mg= 1 tab(s), Oral, As Directed, PRN, 3 refills cloNIDine 0.3 mg Tab finasteride 5 mg Tab, 5 mg= 1 tab(s), Oral, Daily, 3 refills ReliOn/Novolin 70/30 subcutaneous suspension, 40 unit(s), SubCutaneous, BIDAC tamsulosin 0.4 mg Cap, 0.4 mg= 1 cap(s), Oral, qPM, 11 refills torsemide 20 mg Tab, 20 mg= 1 tab(s), Oral, Daily Allergies No Known Allergies Social History Substance Abuse Never., 04/22/2025 Tobacco cuca (more content not included)...[facility] Medical CenterComment on above:Result Comment: Electronically Signed By: Betty Aguilar MD\.br\Date and Time Signed: 04/24/25 12:19EDT\.br\Electronically Co-Signed By: Edda Ayon\.br\Date and Time Co-Signed: 04/24/25 10:44 EDTCT LUNG SCREENING LOW DOSEon [id number] LUNG SCREENING LOW DOSEThis is a summary report. The complete report is available in the patient's medical record. If you cannot access the medical record, please contact the sending organization for a detailed fax or copy. LOW DOSE CT IMAGING OF THE CHEST WITHOUT INTRAVENOUS CONTRAST MEDIUM. HISTORY: Tobacco use. TECHNICAL FACTORS: Without IV contrast axial helical 1.25mm slice thickness low dose images of the chest performed forlung cancer screening. Findings: No suspicious lung nodule, mass or parenchymal consolidation. No significant hilar or mediastinal lymphadenopathy. No pleural or pericardial effusion. IMPRESSION: Lung Rads: LUNGRADS 1 - Negative Follow-up Recommendation: LDCT 1 Year Lung Rads categories: Category 0: Incomplete Additional Imaging Categories 1 & 2: Negative/Benign Continue annual screening Category 3: Probable benign 6 month f/u CT Chest wo Category 3s: Clinically significant or potentially clinically significant findings Category 4A/B Suspicious 4A: [address] Chest wo; PET/CT when > 8mm solid nodule component exists 4B: Chest w/ contrast; PET/CT and/or biopsy Category 5: Highly suspicious for Nodules with strong evidence of malignancy, requiring malignancy. immediate biopsy. Category 6: Incomplete Insufficient Information All CT scans at this facility use dose modulation, iterative reconstruction, and/or weight based dosing when appropriate to reduce radiation dose to as low as reasonably achievable. TRANSCRIBED BY: ELECTRONICALLY SIGNED BY: Clifford Kim MDNormalNot AvailableDEXA BONE DENSITYon [id number] BONE DENSITYExamination: DEXA BONE DENSITY Clinical History: osteoporosis screening Technique: Bone density study was performed. T score values for the lumbar spine, right femoral neck and left femoral neck were obtained. Comparison: None Findings: Value for the lumbar spine from L1-L4 is +2.5. Value for the right femoral neck is -2.0. Value for the left femoral neck is -1.9. Findings are compatible with borderline moderate/severe osteopenia with borderline moderate/moderate to high increased fracture risk. No evidence of osteoporosis. IMPRESSION: Impression: Findings compatible with borderline moderate/severe osteopenia with borderline moderate/moderate to high increased fracture risk. ELECTRONICALLY SIGNED BY: Marck Elizabeth M.D.NormalNot TutpkhkxmLtF3z (Bld) [Mass fraction]on 47-96-3539Wfdmakodhjnsxw and review of laboratory resultsAbnormal [facility] HospitalLaboratory - Hematology and Cell countson 99-69-0939McL8w (Bld) [Mass fraction]8.6 %[facility] TYPE NATRIURETIC PEPTIDE (BNP)on 42-61-9269Snacbnabzdi peptide B (Bld) [Mass/Vol]452 pg/mLHigh <100Quest DiagnosticsComment on above:Result Comment: BNP levels increase with age in the general population with the highest values seen in individuals greater than 75 years of age. Reference: J. Am. Daljit. Cardiol. 2002; 40:976-982.Performed By: #### 66537, 1759 #### [facility] [address] [place] [address] Fly Raiser Lockstitch: Mariela Whitehead (H/H, RBC, INDICES, WBC, PLT)on 02-27-2025 WHITE BLOOD CELL COUNTNormalQuest DiagnosticsComment on above:Result Comment: TEST NOT PERFORMED No lavender-top tube received.Performed By: #### 34207, 1759 #### [facility] [address] [place] [address] Fly Raiser Lockstitch: Mariela ShawiCBC panel Auto (Bld)on 69-44-9294ZTJ (Bld) [#/Vol][facility] HospitalComment on above:TEST NOT PERFORMED No lavender-top tube received. COMPREHENSIVE METABOLIC PANELon 83-05-3706Uiwvmlu [Mass/Vol]3.3 g/dLLow3.6-5.1 Quest DiagnosticsComment on above:Order Comment: FASTING:NO FASTING: NOPerformed By: #### 26432, 1759 #### [facility] [address] [place] [address] Fly Raiser Lockstitch: Mariela ShawiAlbumin/Globulin [Mass ratio]1.2 {ratio}Normal 1.0-2.5Quest DiagnosticsComment on above:Order Comment: FASTING:NO FASTING: NOPerformed By: #### 79615, 1759 #### [facility] [address] [place], [place] [id number] [employer] Raiser [employer]ch: Mariela ShawiALP [Catalytic activity/Vol]65 U/DQfmzaf58-172 Quest DiagnosticsComment on above:Order Comment: FASTING:NO FASTING: NOPerformed By: #### 11751, 1759 #### [facility] [address] [place], [place] [address] [employer]: Mariela ShawiALT [Catalytic activity/Vol]9 U/LNormal9-46 Quest DiagnosticsComment on above:Order Comment: FASTING:NO FASTING: NOPerformed By: #### 52865, 1759 #### [facility] [address] [place], [place] [address] [employer] Raiser [employer]ch: Mariela ShawiAST [Catalytic activity/Vol]12 U/LWfxuyr83-06 Quest DiagnosticsComment on above:Order Comment: FASTING:NO FASTING: NOPerformed By: #### 82183, 1759 #### [facility] [address] [place] [address] Fly Raiser Lockstitch: Mariela ShawiBilirubin [Mass/Vol]0.3 mg/dLNormal0.2-1.2 Quest DiagnosticsComment on above:Order Comment: FASTING:NO FASTING: NOPerformed By: #### 25465, 1759 #### [facility] [address] [place] [address] Fly Raiser Lock[employer]ch: Mariela ShawiCalcium [Mass/Vol]8.1 mg/dLLow8.6-10.3Quest DiagnosticsComment on above:Order Comment: FASTING:NO FASTING: NOPerformed By: #### 25127, 1759 #### [facility] [address] [place] [address] Fly Raiser Lockstitch: Mariela ShawiChloride [Moles/Vol]109 mmol/BBthlgn37-258 Quest DiagnosticsComment on above:Order Comment: FASTING:NO FASTING: NOPerformed By: #### 40911, 1759 #### [facility] [address] [place] [address] Fly Raiser Lockstitch: Mariela ShawiCO2 [Moles/Vol]22 mmol/NJcmbbm56-93Pihdw DiagnosticsComment on above:Order Comment: FASTING:NO FASTING: NOPerformed By: #### 83534, 1759 #### [facility] [address] [place] [address] Fly Raiser Lock[employer]ch: Mariela ShawiCreatinine [Mass/Vol]3.64 mg/dLHigh0.70-1.35 Quest DiagnosticsComment on above:Order Comment: FASTING:NO FASTING: NOPerformed By: #### 81192, 1759 #### [facility] [address] [place] [address] Fly Raiser Lock[employer]ch: Mariela ShawiGFR/1.73 sq M.predicted among non-blacks MDRD (S/P/Bld) [Vol rate/Area]17 mL/min/{1.73_m2}Low> OR = 60Quest DiagnosticsComment on above:Order Comment: FASTING:NO FASTING: NOPerformed By: #### 65820, 1759 #### [facility] [address] [place] [address] Fly Raiser Lockstitch: Mariela ShawiGlobulin (S) [Mass/Vol]2.8 g/dLNormal1.9-3.7 Quest DiagnosticsComment on above:Order Comment: FASTING:NO FASTING: NOPerformed By: #### 13361, 1759 #### [facility] [address] [place] [address] Fly Raiser Lock[employer]ch: Mariela ShawiGlucose [Mass/Vol]186 mg/qKUluz85-980Mlhwl DiagnosticsComment on above:Order Comment: FASTING:NO FASTING: NOResult Comment: Non-fasting reference interval For someone without known diabetes, a glucose value >125 mg/dL indicates that they may have diabetes and this should be confirmed with a follow-up test.Performed By: #### 03165, 1759 #### [facility] [address] [place] [address] Fly Raiser Lockstitch: Mariela Hawthorne FlatiPotassium [Moles/Vol]4.0 mmol/LNormal3.5-5.3 Quest DiagnosticsComment on above:Order Comment: FASTING:NO FASTING: NOPerformed By: #### 61050, 1759 #### [facility] [address] [place] [address] Fly Raiser Lock[employer]ch: Mariela Hawthorne FlatiProtein [Mass/Vol]6.1 g/dLNormal6.1-8.1Quest DiagnosticsComment on above:Order Comment: FASTING:NO FASTING: NOPerformed By: #### 35324, 1759 #### [facility] [address] [place] [address] Fly Raiser Lockstitch: Mariela Hawthorne FlatiSodium [Moles/Vol]142 mmol/BSmdirs402-832Kywnm DiagnosticsComment on above:Order Comment: FASTING:NO FASTING: NOPerformed By: #### 39564, 1759 #### [facility] [address] [place] [address] Fly Raiser Lockstitch: Mariela R FlatiUrea nitrogen [Mass/Vol]56 mg/dLHigh7-25Quest DiagnosticsComment on above:Order Comment: FASTING:NO FASTING: NOPerformed By: #### 49485, 1759 #### [facility] [address] [place] [address] Fly Raiser Lock[employer]ch: Mariela Hawthorne ColiniUrea nitrogen/Creatinine [Mass ratio]15 mg/mg Normal6-22Quest DiagnosticsComment on above:Order Comment: FASTING:NO FASTING: NOPerformed By: #### 90465, 1759 #### [facility] [address] [place] [address] Fly Raiser Lockstitch: Mariela ShawiLaferry county memorial hospital - Chemistry and Chemistry - [facility] 53-78-7158Ahbcsjj [Mass/Vol]3.3 g/dLLow3.6 - 5.1 g/dLNOMT Healthcare Albumin/Globulin [Mass ratio]1.2 {ratio}NOMS HealthcareALP [Catalytic activity/Vol]65 U/L35 - 144 U/LNOMS HealthcareALT [Catalytic activity/Vol]9 U/L9 - 46 U/LNOMS HealthcareAST [Catalytic activity/Vol]12 U/L10 - 35 U/LNOMS HealthcareBilirubin [Mass/Vol]0.3 mg/dL0.2 - 1.2 mg/dLNOMS HealthcareCalcium [Mass/Vol]8.1 mg/dLLow8.6 - 10.3 mg/dLNOMT HealthcareChloride [Moles/Vol]109 mmol/L98 - 110 mmol/LNOMS HealthcareCO2 [Moles/Vol]22 mmol/L20 - 32 mmol/LNOMS HealthcareCreatinine [Mass/Vol]3.64 mg/dLHigh0.70 - 1.35 mg/dLNOMS Healthcare GFR/1.73 sq M.predicted among non-blacks MDRD (S/P/Bld) [Vol rate/Area]17 mL/min/{1.73_m2}Low> OR = 60 mL/min/1.87k4LFPN HealthcareGlobulin (S) [Mass/Vol] 2.8 g/dLNOMS HealthcareGlucose [Mass/Vol]186 mg/xCUxwi01 - 139 mg/dLNOMS HealthcareComment on above: Non-fasting reference interval For someone without known diabetes, a glucose value >125 mg/dL indicates that they may have diabetes and this should be confirmed with a follow-up test. Potassium [Moles/Vol]4 mmol/L3.5 - 5.3 mmol/LNOMS HealthcareProtein [Mass/Vol] 6.1 g/dL6.1 - 8.1 g/dLNOMT HealthcareSodium [Moles/Vol]142 mmol/L135 - 146 mmol/LNOMS HealthcareUrea nitrogen [Mass/Vol]56 mg/dLHigh7 - 25 mg/dLNOMT HealthcareUrea nitrogen/Creatinine [Mass ratio]15 mg/mgNOMT Healthcare Natriuretic peptide B [Mass/Vol]on 86-13-8049Wcdfbwqajif peptide B (Bld) [Mass/Vol]452 pg/mLHighNINF - 100 pg/mLNOMS HealthcareComment on above: BNP levels increase with age in the general population with the highest values seen in individuals greater than 75 years of age. Reference: J. Am. Daljit. Cardiol. 2002; 40:976-982. Performing Organization Information Site ID: QPT Name: [facility] Address: [address] [place] [address], [address] [place] [phone] Director: Narendra Ragsdale [facility] HospitalNo Panel Informationon 02-27-2025 Interpretation and review of laboratory resultsAbnormSelect Specialty Hospital - HarrisburgFASTING:NO FASTING: NOQUESTPerforming Organization Information Site ID: QTW Name: [facility] Address: [address] [place] [phone] Director: Mariela AragonSac-Osage Hospital HealthcareGlucose (Bld) [Mass/Vol] on 87-26-6922Shhgcsf Blood, OTV425 mg/dLJORDAN VALLEY [facility] HealthcareLaboratory - Hematology and Cell countson 90-02-6290NhS0c (Bld) [Mass fraction]7.7 %[facility] HealthcareNo Panel Informationon 68-85-8894Utexwznfhwhker and review of laboratory results NormalLake Regional Health System HealthcareCHEMISTRYOrdered By: SYSTEM SYSTEM on 51-06-7354Ewmsoqni specific Ag [Mass/Vol]2.2 ng/mLNormal0.1 - 3.5 ng/mLRemisol ChemComment on above:Interpretive Data: The concentration of PSA determined by different manufacturers can vary due to differences in assay methods and reagent specificity. Values obtained from different assay methods cannot be used interchangeably. The methodology used for this result was chemiluminescence using [employer] Xavier's Access Hybritech PSA reagent.PSA Totalon 11-27-2024 Prostate specific Ag [Mass/Vol]2.2 ng/mLNormal0.1-3.5[facility] Comment on above:Result Comment: The concentration of PSA determined by different manufacturers can vary due to differences in assay methods and reagent specificity. Values obtained from different assay methods cannot be used interchangeably. The methodology used for this result was chemiluminescence using [employer] Cranston's Access Hybritech PSA reagent.Performed By: #### [id number] #### [facility] [address] [place], [place] [address]Lrqbsnb Letter FTMCon 40-14-3305Lqpaoun Letter FTPatient Letter FT October 18, [address] [address] : 1955 Dear Natalya Reed Jr, We have been trying to reach you with no success. It is important that you return our call upon receiving this letter. Also, at the time of your call, please provide us with your current information. Thank you for your prompt attention to this matter. Sincerely, [facility] Rajiv [place] [address] FntdutFfsjsrDelaware County HospitalPatient Letter FTMCon 58-54-8161Ftiragv Letter FTPatient Letter FT October 08, [address] [address] : 1955 Dear Natalya Reed Jr, We have been trying to reach you with no success. It is important that you return our call regarding your recent imaging results and needed labs upon receiving this letter. Also, at the time of your call, please provide us with your current information. Thank you for your prompt attention to this matter. Sincerely, [facility] [place] [address] IaxsynZtlaclWexner Medical CenterUS RENAL AND BLADDERon 32-52-9656Ibn[address] [address] Ultrasound Report Signed Patient: NATALYA REED Jr. MR#: [id number] : 1955 Acct:[id number] Age/Sex: 69 / M ADM Date: 10/03/24 Loc: US Attending Dr: Betty Aguilar M.D. Ordering Physician: Betty Aguilar M.D. Date of Service: 10/03/24 Procedure(s): US renal bladder Accession Number(s): [id number] cc: YASSINE BECKER ; Betty Aguilar M.D. [address] [address] Patient Name: NATALYA REED MRN: [id number] date: 1955 Sex: M Assigned Patient Location: US Current Patient Location: Accession/Order Number: [id number] Exam Date: 10/03/2024 09:00 Report Date: 10/04/2024 04:57 At the request of: BETTY AGUILAR Procedure: US renal bladder EXAMINATION: US renal [...] mass, or calculi. Post void residual: 15 mL. URETERAL JETS: Visualized bilaterally. OTHER: Large heterogeneous and irregular prostate, at least 7.1 x 4.8 x 5.1 cm. US/US renal bladder IMPRESSION: 1. Normal ultrasound appearance of the kidneys. 2. Large heterogeneous prostate protruding into the bladder. Electronically authenticated by: NURYS KHAN Date: 10/04/2024 04:57 Dictated By: Nurys Khan M.D. Signed By: 10/04/24 0500 DD/ 0457 TD/TT: Night Court Magistrate:WESLEYadiology, Radiologist, - 10/04/2024 [place] [address] Ultrasound Report Signed Patient: NATALYA REED Jr. MR#: [id number] : 1955 Acct:[id number] Age/Sex: 69 / M ADM Date: 10/03/24 Loc: US Attending Dr: Betty Aguilar M.D. Ordering Physician: Betty Aguilar M.D. Date of Service: 10/03/24 Procedure(s): US renal bladder Accession Number(s): [id number] cc: YASSINE BECKER ; Betty Aguilar M.D. The [place] [address] Patient Name: NATALYA REED MRN: [id number] date: 1955 Sex: M Assigned Patient Location: US Current Patient Location: Accession/Order Number: [id number] Exam Date: 10/03/2024 09:00 Report Date: 10/04/2024 04:57 At the request of: BETTY AGUILAR Procedure: US renal bladder EXAMINATION: US renal [...] mass, or calculi. Post void residual: 15 mL. URETERAL JETS: Visualized bilaterally. OTHER: Large heterogeneous and irregular prostate, at least 7.1 x 4.8 x 5.1 cm. US/US renal bladder IMPRESSION: 1. Normal ultrasound appearance of the kidneys. 2. Large heterogeneous prostate protruding into the bladder. Electronically authenticated by: NURYS KHAN Date: 10/04/2024 04:57 Dictated By: Nurys Khan M.D. Signed By: 10/04/24 2856 DD/ 3242 TD/TT: Night Court Magistrate: [facility] HealthcareRadiology Study observation (narrative)NOMS HealthcareUS RENAL AND BLADDEROrdered By: Radiologist Radiology on 20-19-0242ZZGJ Healthcare Work Phone: Glucose (Bld) [Mass/Vol]on 01-41-0074Geurpnk Blood, HPL937 mg/dLCenterPointe HospitalLaboratory - Hematology and Cell countson 09-03-2024 HbA1c (Bld) [Mass fraction]8.4 %[facility] HealthcareNo Panel Informationon 09-03-2024 NOMS HealthcarePatient Letter FTMCon 88-15-7931Pyrxerx Letter FTMCPatient Letter FTMC July 16, 2024 NATALYA REED [address] [place] [phone] : 1955 Dear Natalya Reed Jr., We have been trying to reach you with no success. It is important that you return our call regarding your _ upon receiving this letter. Also, at the time of your call, please provide us with your current information. Thank you for your prompt attention to this matter. Sincerely, [facility] [place] [address] PbgqkmIzermpWexner Medical CenterLaboratory - Hematology and Cell countson 85-96-6415DcQ3d (Bld) [Mass fraction]8.0 %[facility] HealthcareNo Panel Informationon 57-25-4757QQSY HealthcareUrology Office/Clinic Noteon 06-06-2024 Urology Office/Clinic NoteUrology Office/Clinic Note Chief Complaint 6 month follow [...] tract symptoms) S/p TURP 11/10/[address] Conley - benign CT 09/09/2022 there is moderate prominence of the prostate. there is some nodularity noted along the base of the bladder, which may represent a bladder tumor or the enlarged prostate. cystoscopic correlation suggested. S/P Cysto 03/27/23 - severe bilobar hypertrophy L>>R. Significant L lateral lobe intravesicalprotrusion~3-4cm. PVR (cc): 10/12/23 - 108 11/30/23 - 70 IPSS 11 (10), QoL 3 (3). States he stopped taking Tamsulosin due to confusion with medications. Did start taking Pewmmbvlyny1cl qd as recommended at prior OV. Denies difficulty starting stream. Shares he does have some post-void dribbling still, not very bothersome. Recommended pt to restart taking Tamsulosin to help better control urinary sxs with dual therapy. Discussed possbility of repeat cysto to determine candidacy for GALLARDO procedures. Not interested in this at this time, prefers to continue to current regimen atthis time. -Renal/bladder US with prostate sizing to [...] States kidney function has been worsening. See bellows filler. Discussed possibility of obstructing prostate contributing to [...] at least). S/p Cysto (more content not included)...[facility]ner Medical CenterComment on above:Result Comment: Electronically Signed By: Jeff HILL, Betty Tineo\.br\Date and Time Signed: 06/06/24 11:39EDT\.br\Electronically Co-Signed By: Maureen Becker\.br\Date and Time Co-Signed: 06/06/24 09:54 EDTXR Knee - left 3 Viewson 17-32-0368Lst[address] [address] XRay Report Signed Patient: NATALYA REED Jr. MR#: [id number] : 1955 Acct:[id number] Age/Sex: 68 / M ADM Date: 05/07/24 Loc: RAD Attending Dr: YASSINE BECKER Ordering Physician: YASSINE BECKER Date of Service: 05/07/24 Procedure(s): XR knee LT 3V Accession Number(s): [id number] cc: YASSINE BECKER [address] [address] Patient Name: NATALYA REED MRN: [id number] date: 1955 Sex: M Assigned Patient [facility]: [facility] Current Patient Location: LAB Accession/Order Number: [id number] Exam Date: 05/07/2024 08:28 Report Date: 05/07/2024 13:18 At the request of: YASSINE BECKER Procedure: XR knee LT 3V PROCEDURE: XR knee LT 3V COMPARISON: None. HISTORY: Post Traumatic Osteoarthritis Left Knee FINDINGS: BONES:No acute fracture or dislocation. Minimal osteoarthropathy with marginal osteophyte formation. SOFT TISSUES:Negative. No visible soft tissue swelling. EFFUSION:None visible. OTHER: Negative. XR/XR knee LT 3V IMPRESSION: Minimal osteoarthritis Electronically authenticated by: MECHE GRAY Date: 05/07/2024 13:18 Dictated By: Meche Gray M.D. Signed By: 05/07/24 1321 DD/ 1318 TD/TT: Night Court Magistrate:TBHRadiology, Radiologist, - 05/07/2024 [place] [address] XRay Report Signed Patient: NATALYA REED Jr. MR#: [id number] : 1955 Acct:[id number] Age/Sex: 68 / M ADM Date: 05/07/24 Loc: RAD Attending Dr: YASSINE BECKER Ordering Physician: YASSINE BECKER Date of Service: 05/07/24 Procedure(s): XR knee LT 3V Accession Number(s): [id number] cc: YASSINE BECKER [place] [id number] Patient Name: NATALYA REED MRN: [id number] date: 1955 Sex: M Assigned Patient Location: [facility] Current Patient Location: LAB Accession/Order Number: [id number] Exam Date: 05/07/2024 08:28 Report Date: 05/07/2024 13:18 At the request of: YASSINE BECKER Procedure: XR knee LT 3V PROCEDURE: XR knee LT 3V COMPARISON: None. HISTORY: Post Traumatic Osteoarthritis Left Knee FINDINGS: BONES:No acute fracture or dislocation. Minimal osteoarthropathy with marginal osteophyte formation. SOFT TISSUES:Negative. No visible soft tissue swelling. EFFUSION:None visible. OTHER: Negative. XR/XR knee LT 3V IMPRESSION: Minimal osteoarthritis Electronically authenticated by: MECHE GRAY Date: 05/07/2024 13:18 Dictated By: Meche Gray M.D. Signed By: 05/07/24 1321 DD/ 1318 TD/TT: Night Court Magistrate: MARIBEL HealthcareRadiology Study observation (narrative)MARIBEL CoyleXR Knee - left 3 ViewsOrdered By: Radiologist Radiology on 52-26-4770KLSS Healthcare Work Phone: ECHOCARDIO M/2D COMPLETEon 27-99-1945BDZRDEMDPQ M/2D COMPLETEPatient: NATALYA REED Exam Date: 03/09/2023 : 1955 Gender:M Ordering : DR YASSINE BECKER M.D. Admission #: [id number] Family : Order #: [id number] CLICK HERE TO VIEW EXAM ECHOCARDIOGRAM REPORT [...] by: Branden Edwards M.D. on 03/09/2023 at 16:59[facility] venous duplex UE LTon 92-95-3027[place] venous duplex UE LTKETTERING [place] [address] Ultrasound Report Signed Patient: Natalya Reed JR MR#: [id number] : 1955 Acct:[id number] Age/Sex: 67 / M ADM Date: 01/15/23 Loc: ER Room: Type: [facility] ER Attending Dr: Ordering Provider: [...] Angel Gomez MD01/17/2023 9:45 AM Dictation Location: [place] [address] Tech: Brittanie Green Transcribed By: VINCE 01/17/23944 Dictated By: Angel Gomez MD 01/17/2344 Signed By: 01/17/23 0945NormMetroHealth Parma Medical CenterAlanine aminotransferase [Enzymatic activity/volume] in Serum or PlasmaOrdered By: Filemon Carrizales on 23-43-8806CBR [Catalytic activity/Vol]11 U/L7-52[facility] - WestAlbumin [Mass/volume] in Serum or Plasma by Bromocresol green (BCG) dye binding methoOrdered By: Filemon Carrizales on 76-65-8494Gckckyt BCG dye [Mass/Vol]3.7 g/dL3.5-5.7FOur Lady of Mercy HospitalAlkaline phosphatase [Enzymatic activity/volume] in Serum or PlasmaOrdered By: Filemon Carrizales on 40-18-8416UDM [Catalytic activity/Vol]80 U/H87-636JsybjgomtLake County Memorial Hospital - WestAspartate aminotransferase [Enzymatic activity/volume] in Serum or PlasmaOrdered By: Filemon Carrizales on 29-26-7580FRI [Catalytic activity/Vol]23 U/I93-81SvypgwosxLake County Memorial Hospital - WestAutomated erythrocytes count in urine sediment (number/area)Ordered By: Filemon Carrizales on 11-78-2978TCB Auto (Urine sed) [#/Area] 3-4 [HPF]0-4FOur Lady of Mercy HospitalAutomated leukocytes count in urine sediment (number/area)Ordered By: Filemon Carrizales on 19-77-8677DQL Auto (Urine sed) [#/Area]3-4 [HPF]0-4FOur Lady of Mercy HospitalBasic Metabolic Panel on 53-74-9752Qtyag gap [Moles/Vol]14.2 mmol/LNormal6.0-15.0[facility] Hospital - WestComment on above:Performed By: #### BMP, LIPASE, HEPATIC, CBC #### [facility] [address] [place] [address] USACalcium [Mass/Vol]9.3 mg/dLNormal8.6-10.3FOur Lady of Mercy HospitalComment on above:Performed By: #### BMP, LIPASE, HEPATIC, CBC #### [facility] [address] [place] [address] USAChloride [Moles/Vol]102 mmol/BNjzonw83-809RypxafjsfLake County Memorial Hospital - WestComment on above:Performed By: #### BMP, LIPASE, HEPATIC, CBC #### [facility] [address] [place] [address] USACO2 [Moles/Vol]26.4 mmol/GJwltqj02.0-31.0[facility] Hospital - WestComment on above:Performed By: #### BMP, LIPASE, HEPATIC, CBC #### [facility] [address] [place] [id number] USACreatinine [Mass/Vol]1.97 mg/dLHigh0.70-1.30[facility] Hospital - WestComment on above:Performed By: #### BMP, LIPASE, HEPATIC, CBC #### [facility] [address] [place] [address] USACreatinine Clr Calc Hthqdezy23.41NormalLake County Memorial Hospital - WestComment on above:Performed By: #### BMP, LIPASE, HEPATIC, CBC #### [facility] [address] [place] [address] USAGFR/1.73 sq M.predicted MDRD (S/P/Bld) [Vol rate/Area] 36.564 mL/min/{1.73_m2}NormalLake County Memorial Hospital - WestComment on above: Performed By: #### BMP, LIPASE, HEPATIC, CBC #### [facility] [address] [place] [address] USAGlucose [Mass/Vol]117 mg/eECkbj72-748HypvxsoepLake County Memorial Hospital - WestComment on above:Result Comment: Random Glucose Reference Range is dependent on time and content of last meal. Glucose of more than 200 mg/dL in a nonstressed, ambulatory subject supports the diagnosis of Diabetes Mellitus. ADA recommended reference rangePerformed By: #### BMP, LIPASE, HEPATIC, CBC #### [facility] [address] [place] [address] USAPotassium [Moles/Vol]3.6 mmol/LNormal3.5-5.1FOur Lady of Mercy HospitalComment on above:Performed By: #### BMP, LIPASE, HEPATIC, CBC #### [facility] [address] [place] [address] USASodium [Moles/Vol]139 mmol/NGmecrl584-943FtscubxikLake County Memorial Hospital - WestComment on above:Performed By: #### BMP, LIPASE, HEPATIC, CBC #### [facility] [facility] [address] [place] [address] USAUrea nitrogen [Mass/Vol]26 mg/dLHigh7-25L[facility] Hospital - WestComment on above:Performed By: #### BMP, LIPASE, HEPATIC, CBC #### [facility] [address] [place] [address] USABasophils Auto (Bld) [#/Vol]Ordered By: Filemon Carrizales on 25-22-4233Wpgzndppl (Bld) [#/Vol]0.2 10*3/uL0.0-0.2[facility] Medical CenterBasophils/100 WBC Auto (Bld)Ordered By: Filemon Carrizales on 01-06-2023 Basophils/100 WBC (Bld)1.3 %.[facility] - WestBilirubin Test strip Ql (U)Ordered By: Filemon Carrizales on 36-31-4735Uxxosmump Ql (U)Negative NegativeLake County Memorial Hospital - WestBilirubin.direct [Mass/volume] in Serum or PlasmaOrdered By: Filemon Carrizales on 42-60-2913Hctuwaxii.direct [Mass/Vol]0.10 mg/dL0.03-0.18FOur Lady of Mercy HospitalBilirubin.total [Mass/volume] in Serum or PlasmaOrdered By: Filemon Carrizales on 26-41-8956Bafjqsxpe [Mass/Vol]0.4 mg/dL0.3-1.0[facility] - WestCT abdomen pelvis w conon 04-03-3748VC abdomen pelvis [place] [address] CT Scan Report Signed Patient: Natalya Reed JR MR#: [id number] : 1955 Acct:[id number] Age/Sex: 67 / M ADM Date: 01/06/23 Loc: ER Room: Type: [facility] ER Attending Dr: Copies to: Filemon [...] René Jackson M.D.01/06/2023 11:44 AM Dictation Location: [place] [address] Transcribed By: [facility] 01/06/23 1144 Dictated By: René Jackson DO 01/06/23 1137 Signed By: 01/06/23 1144[facility]'s HospitalCalcium [Mass/volume] in Serum or PlasmaOrdered By: Filemon Carrizales on 66-04-4411Kiwlfyl [Mass/Vol]9.3 mg/dL 8.6-10.3FOur Lady of Mercy HospitalCarbon dioxide, total [Moles/volume] in Serum or PlasmaOrdered By: Filemon Carrizales on 10-97-8638YK0 [Moles/Vol]26.4 mmol/L 21.0-31.0[facility] - WestChloride [Moles/volume] in Serum or PlasmaOrdered By: Filemon Carrizales on 84-80-2011Vselzohc [Moles/Vol]102 mmol/L98-107 [facility] - WestColor Auto (U)Ordered By: Filemon Carrizales on 27-91-4485Uzbcq (U)YellowYelAvita Health System Galion HospitalComplete Blood Count Auto Diffon 52-86-4565Vivtnrqth (Bld) [#/Vol]0.2 10*3/uLNormal0.0-0.2 [facility] - WestComment on above:Result Comment: PERFORMED BY: [facility] [address] [place] [address] PATHOLOGIST GROUND WATER TECHNICIAN YAKOV MEZA M.D.Performed By: #### BMP, LIPASE, HEPATIC, CBC #### [place] [address] USABasophils/100 WBC (Bld)1.3 %Normal.[facility] Hospital - WestComment on above:Performed By: #### BMP, LIPASE, HEPATIC, CBC #### [place] [address] USAEosinophils (Bld) [#/Vol]0.9 10*3/uLHigh0.0-0.45[facility] - WestComment on above:Performed By: #### BMP, LIPASE, HEPATIC, CBC #### [place] [address] USAEosinophils/100 WBC (Bld)7.3 %Normal.[facility] - WestComment on above:Performed By: #### BMP, LIPASE, HEPATIC, CBC #### [place] [address] USAErythrocyte distribution width (RBC) [Ratio]16.7 %High 12.0-14.8[facility] - WestComsinai-grace hospital on above:Performed By: #### BMP, LIPASE, HEPATIC, CBC #### [place] [address] USAHematocrit (Bld) [Volume fraction]40.7 %Gxgrwp69.8-50.0 [facility] - WestComment on above:Performed By: #### BMP, LIPASE, HEPATIC, CBC #### [place] [address] USAHemoglobin (Bld) [Mass/Vol]13.7 g/cKFxtplq29.0-17.0 [facility] - WestComment on above:Performed By: #### BMP, LIPASE, HEPATIC, CBC #### [place] [address] USALymphocytes (Bld) [#/Vol]2.2 10*3/uLNormal1.00-4.8 [facility] - WestComment on above:Performed By: #### BMP, LIPASE, HEPATIC, CBC #### [facility] [address] [place] [address] USALymphocytes/100 WBC (Bld)17.8 %Normal.[facility] Hospital - WestComment on above:Performed By: #### BMP, LIPASE, HEPATIC, CBC #### [facility] [address]H (RBC) [Entitic mass]27.3 pgLow27.5-35.2FOur Lady of Mercy HospitalComment on above:Performed By: #### BMP, LIPASE, HEPATIC, CBC #### [address]V (RBC) [Entitic vol]81.0 fLLow83.5-101L[facility] Hospital - WestComment on above:Performed By: #### BMP, LIPASE, HEPATIC, CBC #### [place] [address] USAMean Corpuscular HGB Conc33.7 g/cGJnjbuu49.5-35.6FOur Lady of Mercy HospitalComment on above:Performed By: #### BMP, LIPASE, HEPATIC, CBC #### [place] [address] USAMonocytes (Bld) [#/Vol]0.8 10*3/uLNormal0.0-0.8[facility] Hospital - WestComment on above:Performed By: #### BMP, LIPASE, HEPATIC, CBC #### [place] [address] USAMonocytes/100 WBC (Bld)21.73 %High0.00-20.00[facility] Hospital - WestComment on above:Result Comment: For adults in ED, MDW > 20.0 may be associated with a higher risk of sepsis during the first 12 hrs of hospital admissionPerformed By: #### BMP, LIPASE, HEPATIC, CBC #### [place] [address] USAMonocytes/100 WBC (Bld)6.4 %Normal.[facility] Hospital - WestComment on above:Performed By: #### BMP, LIPASE, HEPATIC, CBC #### [facility] [address] [place] [address] USANeutrophils (Bld) [#/Vol]8.3 10*3/uLHigh1.8-7.7FOur Lady of Mercy HospitalComment on above:Performed By: #### BMP, LIPASE, HEPATIC, CBC #### [facility] [address] [place] [address] USANeutrophils/100 WBC (Bld)67.2 %Normal.[facility] Hospital - WestComment on above:Performed By: #### BMP, LIPASE, HEPATIC, CBC #### [facility] [address] [place] [address] USANRBC%0.1 /100{WBC}Normal0-0.5FOur Lady of Mercy HospitalComment on above:Performed By: #### BMP, LIPASE, HEPATIC, CBC #### [place] [address] USAPlatelet mean volume (Bld) [Entitic vol]8.7 fLNormal 6.6-10.1FOur Lady of Mercy HospitalComment on above:Performed By: #### BMP, LIPASE, HEPATIC, CBC #### [place] [address] USAPlatelets (Bld) [#/Vol]268 10*3/nGCilrul358-329EujcbkzbmLake County Memorial Hospital - WestComment on above:Performed By: #### BMP, LIPASE, HEPATIC, CBC #### [facility] [address] [place] [address] USARBC (Bld) [#/Vol]5.03 10*6/uLNormal3.90-5.60[facility] - WestComment on above:Performed By: #### BMP, LIPASE, HEPATIC, CBC #### [place] [address] USAWBC (Bld) [#/Vol]12.3 10*3/uLHigh4.1-10.5FOur Lady of Mercy HospitalComment on above:Performed By: #### BMP, LIPASE, HEPATIC, CBC #### [facility] [address] [place] [address] USACreatinine [Mass/volume] in Serum or PlasmaOrdered By: Filemon Carrizales on 04-22-4449Qtfeqinvvq [Mass/Vol]1.97 mg/dL0.70-1.30[facility] Hospital - WestDipstick and Microscopicon 23-06-5690Ewunyqisei (U)Clear NormalCleWilson Street HospitalComment on above:Order Comment: Name Collection Type:: Clean-Voided MidstreamPerformed By: #### ADDONUAPLUS #### [facility] [address] [place] [address] USABacteria,UrineNone SeenNormalNone SeenLake County Memorial Hospital - WestComment on above:Order Comment: Name Collection Type:: Clean- Voided MidstreamPerformed By: #### ADDONUAPLUS #### [place] [address] USABilirubin,UrineNegativeNormalNegativeLake County Memorial Hospital - WestComment on above:Order Comment: Name Collection Type:: Clean- Voided MidstreamPerformed By: #### ADDONUAPLUS #### [place] [address] USAColor (U)YellowNormalYellowLake County Memorial Hospital - WestComment on above:Order Comment: Name Collection Type:: Clean-Voided MidstreamPerformed By: #### ADDONUAPLUS #### [facility] [address] [place] [address] USAGlucose Ql (U)250 mg/dLHighNoAshtabula County Medical CenterComment on above:Order Comment: Name Collection Type:: Clean- Voided MidstreamPerformed By: #### ADDONUAPLUS #### [place] [address] USAHyaline Casts,Rilap5-9Egdtgh2-8ZugxmvmxxLake County Memorial Hospital - WestComment on above:Order Comment: Name Collection Type:: Clean-Voided MidstreamResult Comment: PERFORMED BY: [address] [place] [address] PATHOLOGIST GROUND WATER TECHNICIAN YAKOV MEZA M.D.Performed By: #### ADDONUAPLUS #### [place] [address] USAKetones Ql (U)NegativeNormOhioHealth Marion General HospitalComment on above:Order Comment: Name Collection Type:: Clean- Voided MidstreamPerformed By: #### ADDONUAPLUS #### [place] [address] USALeukocyte esterase Test strip Ql (U)NegativeNormalNegative [facility] - WestComment on above:Order Comment: Name Collection Type:: Clean-Voided MidstreamPerformed By: #### ADDONUAPLUS #### [place] [address] USANitrite,UrineNegativeNoHenry County HospitalComment on above:Order Comment: Name Collection Type:: Clean- Voided MidstreamPerformed By: #### ADDONUAPLUS #### [place] [address] USAOccult Blood,UrineTraceHighland-Clarksburg HospitalNegSelect Medical Specialty Hospital - CantonComment on above:Order Comment: Name Collection Type:: Clean- Voided MidstreamResult Comment: PERFORMED BY: [place] [address] PATHOLOGIST GROUND WATER TECHNICIAN YAKOV MEZA M.D.Performed By: #### ADDONUAPLUS #### [place] [id number] USApH (U)6.5 [pH]Normal5.0-9.0[facility] - WestComment on above:Order Comment: Name Collection Type:: Clean-Voided MidstreamPerformed By: #### ADDONUAPLUS #### [place] [address] USAProtein,Urine>=1000HighNegSelect Medical Specialty Hospital - CantonComment on above:Order Comment: Name Collection Type:: Clean-Voided MidstreamPerformed By: #### ADDONUAPLUS #### [facility] [address] [place] [address] USARBC,Wlkkm7-4Wnuvlw7-9ZxjbchuzjOur Lady of Mercy Hospital Comment on above:Order Comment: Name Collection Type:: Clean-Voided Midstream Performed By: #### ADDONUAPLUS #### [facility] [address] [place] [address] USASpecificy [place],Urine1.808Pwpxfr8.001-1.030[facility] - WestComment on above:Order Comment: Name Collection Type:: Clean-Voided MidstreamPerformed By: #### ADDONUAPLUS #### [place] [address] USASquamous Epithelial Cell,Rwmfi9-8Wmirrc3-6MfkgnpkdoOur Lady of Mercy HospitalComment on above:Order Comment: Name Collection Type:: Clean-Voided MidstreamPerformed By: #### ADDONUAPLUS #### [facility] [address] [place] [address] USAUrobilinogen,UrineNormalNormalNormalLake County Memorial Hospital - WestComment on above:Order Comment: Name Collection Type:: Clean- Voided MidstreamPerformed By: #### ADDONUAPLUS #### [place] [address] USAWBC,Ajsrd1-1Wuezic1-4ByktkwkdwOur Lady of Mercy Hospital Comment on above:Order Comment: Name Collection Type:: Clean-Voided Midstream Performed By: #### ADDONUAPLUS #### [place] [address] USAEosinophils Auto (Bld) [#/Vol]Ordered By: Filemon Carrizales on 32-65-6833Hfdckfuswvx (Bld) [#/Vol]0.9 10*3/uL0.0-0.45[facility] - WestEosinophils/100 WBC Auto (Bld)Ordered By: Filemon Carrizales on 01-06-2023 Eosinophils/100 WBC (Bld)7.3 %.[facility] Hospital - WestErythrocyte distribution width Auto (RBC) [Ratio]Ordered By: Filemon Carrizales on 01-06-2023 Erythrocyte distribution width (RBC) [Ratio]16.7 %12.0-14.8[facility] Hospital - WestGlobulin Calc (S) [Mass/Vol]Ordered By: Filemon Carrizales on 01-06-2023 Globulin (S) [Mass/Vol]3.8 g/dLLake County Memorial Hospital - WestGlucose [Mass/volume] in Serum or PlasmaOrdered By: Filemon Carrizales on 92-72-6558Gxwjjtr [Mass/Vol]117 mg/aJ86-246LwsazmjqgLake County Memorial Hospital - WestComment on above:ADA recommended reference rangeRandom Glucose Reference Range is dependent on time and content of last meal. Glucose of more than 200 mg/dL in a nonstressed, ambulatory subject supports the diagnosisof Diabetes Mellitus.Hematocrit Auto (Bld) [Volume fraction]Ordered By: Filemon Carrizales on 64-73-4287Ecptryarzq (Bld) [Volume fraction]40.7 %38.8-50.0[facility] Hospital - WestHemoglobin [Mass/volume] in BloodOrdered By: Filemon Carrizales on 93-46-9245Alutcpdgdq (Bld) [Mass/Vol]13.7 g/dL13.0-17.0[facility] - WestHepatic Panelon 58-34-1069Lqzsjhi [Mass/Vol]3.7 g/dLNormal3.5-5.7FOur Lady of Mercy HospitalComment on above:Performed By: #### BMP, LIPASE, HEPATIC, CBC #### [facility] [address] [place] [address] USAAlbumin/Globulin [Mass ratio]1.0 {ratio}NormalLake County Memorial Hospital - WestComment on above:Performed By: #### BMP, LIPASE, HEPATIC, CBC #### [facility] [address] [place] [address] USAALP [Catalytic activity/Vol]80 U/RVubrrk42-378EtnfhyftdLake County Memorial Hospital - WestComment on above:Performed By: #### BMP, LIPASE, HEPATIC, CBC #### [facility] [address] [place] [address] USAALT [Catalytic activity/Vol]11 U/LNormal7-52[facility] Hospital - WestComment on above:Performed By: #### BMP, LIPASE, HEPATIC, CBC #### [facility] [address] [place] [address] USAAST [Catalytic activity/Vol]23 U/MTbmelj87-26JdebaqbldLake County Memorial Hospital - WestComment on above:Performed By: #### BMP, LIPASE, HEPATIC, CBC #### [facility] [address] [place] [address] USABilirubin [Mass/Vol]0.4 mg/dLNormal0.3-1.0[facility] - WestComment on above:Performed By: #### BMP, LIPASE, HEPATIC, CBC #### [place] [address] USABilirubin,Indirect0.3 mg/dLNormalLake County Memorial Hospital - WestComment on above:Performed By: #### BMP, LIPASE, HEPATIC, CBC #### [place] [address] USABilirubin.indirect [Mass/Vol]0.10 mg/dLNormal0.03-0.18 [facility] - WestComment on above:Performed By: #### BMP, LIPASE, HEPATIC, CBC #### [place] [address] USAGlobulin (S) [Mass/Vol]3.8 g/dLNormalLake County Memorial Hospital - WestComment on above:Performed By: #### BMP, LIPASE, HEPATIC, CBC #### [place] [address] USAProtein [Mass/Vol]7.5 g/dLNormal6.4-8.9[facility] - WestComment on above:Performed By: #### BMP, LIPASE, HEPATIC, CBC #### [place] [address] USAKetones Auto test strip (U) [Mass/Vol]Ordered By: Filemon Carrizales on 17-24-5372Fohkdxo (U) [Mass/Vol]NegativeNegativeLake County Memorial Hospital - WestLaboratory - Chemistry and Chemistry - challengeOrdered By: Filemon Carrizales on 53-20-9751NNQ/1.73 sq M.predicted MDRD (S/P/Bld) [Vol rate/Area] 36.564 mL/min/{1.73_m2}[facility] - WestLaboratory - Urinalysis Ordered By: Filemon Carrizales on 89-15-8242Kjokoex casts LM Ql (Urine sed)0-8 [LPF] 0-8[facility] - WestLeukocytes [#/volume] corrected for nucleated erythrocytes in Blood by Automated counOrdered By: Filemon Carrizales on 51-39-8669QXY corrected for nucl RBC Auto (Bld) [#/Vol]12.3 10*3/uL4.1-10.5 [facility] - WestLipaseon 27-59-6342Nmyvox [Catalytic activity/Vol]48.0 U/KVwkioy16.0-82.0[facility] - WestComment on above:Result Comment: PERFORMED BY: [place] [address] PATHOLOGIST GROUND WATER TECHNICIAN YAKOV MEZA M.D.Performed By: #### BMP, LIPASE, HEPATIC, CBC #### [place] [address] USALipase [Enzymatic activity/volume] in Serum or Plasma Ordered By: Filemon Carrizales on 71-30-8175Dyqppj [Catalytic activity/Vol]48.0 U/L 11.0-82.0[facility] Hospital - WestLymphocytes Auto (Bld) [#/Vol]Ordered By: Filemon Carrizales on 90-29-6750Kibarfzonlb (Bld) [#/Vol]2.2 10*3/uL1.00-4.8 [facility] - WestLymphocytes/100 WBC Auto (Bld)Ordered By: Filemon Carrizales on 38-88-0659Fjlpyvfotbq/100 WBC (Bld)17.8 %.[facility] Auto (RBC) [Entitic mass]Ordered By: Filemon Carrizales on 62-42-1614SVO (RBC) [Entitic mass]27.3 pg27.5-35.2Firelands Regional Medical CenterMCHC Auto (RBC) [Mass/Vol]Ordered By: Filemon Carrizales on 64-77-8025NINI (RBC) [Mass/Vol]33.7 g/dL32.5-35.6FOur Lady of Mercy HospitalMCV Auto (RBC) [Entitic vol]Ordered By: Filemon Carrizales on 63-81-4087TDH (RBC) [Entitic vol]81.0 fL83.5-101[facility] - WestMonocyte distribution width [Entitic volume] in Blood by AutomatedOrdered By: Filemon Carrizales on 83-78-7302Jgcqrcyz distribution width Auto (Bld) [Entitic vol]21.73 %0.00-20.00[facility] - WestComment on above:For adults in ED, MDW > 20.0 may be associated with a higher risk of sepsis during the first 12 hrs of hospital admission Monocytes Auto (Bld) [#/Vol]Ordered By: Filemon Carrizales on 75-72-5906Xenopxwxs (Bld) [#/Vol]0.8 10*3/uL0.0-0.8[facility] - WestMonocytes/100 WBC Auto (Bld)Ordered By: Filemon Carrizales on 85-47-3371Xdvyqqmlp/100 WBC (Bld)6.4 % .[facility] Hospital - WestNeutrophils Auto (Bld) [#/Vol]Ordered By: Filemon Carrizales on 38-73-9157Gqrlhrytyra (Bld) [#/Vol]8.3 10*3/uL1.8-7.7FOur Lady of Mercy HospitalNeutrophils/100 WBC Auto (Bld)Ordered By: Filemon Carrizales on 26-78-2431Fjpontymadd/100 WBC (Bld)67.2 %.[facility] Nitrite Test strip Ql (U)Ordered By: Filemon Carrizales on 14-54-8610Bhzgioz Ql (U) NegativeNegativeLake County Memorial Hospital - WestNo Panel InformationOrdered By: Filemon Carrizales on 49-34-4348Sulgqrgz Creatinine Clearance (Chem44.41[facility] Hospital - WestNucleated erythrocytes [Presence] in Blood by Automated countOrdered By: Filemon Carrizales on 27-12-5597Ndmyvmbbf RBC Auto Ql (Bld)0.1 /100{WBC}0-0.5FOur Lady of Mercy HospitalPlatelet mean volume Auto (Bld) [Entitic vol]Ordered By: Filemon Carrizales on 71-83-3142Gpyspfoj mean volume (Bld) [Entitic vol]8.7 fL6.6-10.1FOur Lady of Mercy HospitalPlatelets Auto (Bld) [#/Vol]Ordered By: Filemon Carrizales on 41-04-8062Axvkvggrp (Bld) [#/Vol]268 10*3/uL 150-450[facility] - WestPotassium [Moles/volume] in Serum or PlasmaOrdered By: Filemon Carrizales on 06-70-1914Ckkctnbne [Moles/Vol]3.6 mmol/L 3.5-5.1FOur Lady of Mercy HospitalProtein Auto test strip (U) [Mass/Vol] Ordered By: Filemon Carrizales on 30-65-0324Huitotl (U) [Mass/Vol]mg/dLNegative [facility] - WestProtein [Mass/volume] in Serum or PlasmaOrdered By: Filemon Carrizales on 45-97-6566Tqkcnnw [Mass/Vol]7.5 g/dL6.4-8.9[facility] - WestRBC Auto (Bld) [#/Vol]Ordered By: Filemon Carrizales on 34-41-1742LBX (Bld) [#/Vol]5.03 10*6/uL3.90-5.60[facility] Medical Centererum or plasma albumin/globulin mass ratioOrdered By: Filemon Carrizales on 74-78-8037Zqicofp/Globulin [Mass ratio]1.0 {ratio}[facility] Centererum or plasma anion gap determinationOrdered By: Filemon Carrizales on 65-17-5163Zvsgr gap [Moles/Vol]14.2 mmol/L6.0-15.0[facility] Medical Centererum or plasma non-glucuronidated bilirubin measurement (mass/volume) Ordered By: Filemon Carrizales on 71-80-4930Kwfzrhflo.indirect [Mass/Vol]0.3 mg/dL [facility] Centerodium [Moles/volume] in Serum or PlasmaOrdered By: Filemon Carrizales on 47-69-6060Wdhual [Moles/Vol]139 mmol/N541-942DfxeearexDiley Ridge Medical Centerpecific gravity Auto test strip (U) [Rel density]Ordered By: Filemon Carrizales on 53-45-9758Vicfzbbc gravity (U) [Rel density]1.0181.001-1.030 [facility] Medical Centerquamous epithelial cells detection in urine sediment by light microscopyOrdered By: Filemon Carrizales on 49-79-1865Mlxowydwow cells.squamous LM Ql (Urine sed)1-2 [HPF]0-2FOur Lady of Mercy Hospital Urea nitrogen [Mass/volume] in Serum or PlasmaOrdered By: Filemon Carrizales on 44-77-3068Wbit nitrogen [Mass/Vol]26 mg/dL7-25[facility] Urine bacteria detection by automated methodOrdered By: Filemon Carrizales on 07-37-5729Nwutgpjj Auto Ql (U)None seenNone SeenLake County Memorial Hospital - WestUrine clarity by refractometry automatedOrdered By: Filemon Carrizales on 29-23-8427Zmsqusu Refractometry automated (U)ClearClearFOur Lady of Mercy HospitalUrine glucose measurement by automated test strip (mass/volume) Ordered By: Filemon Carrizales on 29-00-3777Eokkevc Auto test strip (U) [Mass/Vol]250 mg/dLNoAshtabula County Medical CenterUrine hemoglobin detection by automated test stripOrdered By: Filemon Carrizales on 59-15-7133Pesahdkbgx Auto test strip Ql (U)TraceNegSelect Medical Specialty Hospital - CantonUrine leukocyte esterase detection by automated test stripOrdered By: Filemon Carrizales on 01-06-2023 Leukocyte esterase Auto test strip Ql (U)NegativeNegSelect Medical Specialty Hospital - CantonUrobilinogen Auto test strip (U) [Mass/Vol]Ordered By: Filemon Carrizales on 66-28-4003Qzvkkpppvkif (U) [Mass/Vol]Normal mg/dLNoAshtabula County Medical CenterWBC Auto (Bld) [#/Vol]Ordered By: Filemon Carrizales on 40-95-1042EEB (Bld) [#/Vol]12.3 10*3/uL4.1-10.5FOur Lady of Mercy Hospital pH Auto test strip (U)Ordered By: Filemon Carrizales on 27-20-7708cJ (U)6.5 [pH] 5.0-9.0[facility] - WestCTA CHEST WO W CONon 17-07-9027GET CHEST WO W CONEXAM: CTA CHEST WO W CON TECHNIQUE: CT [...] abnormality identified. Chest Wall: No acute abnormality. IMPRESSION: No evidence for acute pulmonary embolism. No acute pulmonary consolidation. Electronically authenticated by: CARL DIMAS Date: 2023-01-01 22:00NoLake County Memorial Hospital - WestBNPon 33-10-1394Tssxpcmofgp peptide B (Bld) [Mass/Vol]872.0 pg/mLNormal<=900.0The [facility] HospitalComment on above:Performed By: #### BNP, HSTROPN #### [facility] [address] [place], [place] [address] Dr. Leeanna Palomino AUTO DIFFon 64-13-3024DDTB #0.1 103/ulNormal0.0-0.1The [facility] HospitalComment on above:Performed By: #### CBC #### [facility] [address] [place] [address] Dr. Leeanna HurtadoBasophils/100 WBC (Bld)0.7 %Normal0.2-2.0[facility] Comment on above:Performed By: #### CBC #### [facility] [address] [place] [address] Dr. Leeanna Patel #0.9 103/ulCritically high0.0-0.7The [facility] HospitalComment on above:Performed By: #### CBC #### [facility] [address] [place] [address] Dr. Leeanna Gonzalezosinophils/100 WBC (Bld)6.9 %Normal0.9-7.0[facility] Comment on above:Performed By: #### CBC #### [facility] [address] [place] [address] Dr. Leeanna Gonzalezrythrocyte distribution width (RBC) [Ratio]15.4 %Critically high 11.0-15.0The [facility] HospitalComment on above:Performed By: #### CBC #### [facility] [address] [place] [address] Dr. Leeanna HurtadoHematocrit (Bld) [Volume fraction]38.6 %Critically low42.0-54.0 The [facility] HospitalComment on above:Performed By: #### CBC #### [facility] [address] [place] [address] Dr. Leeanna HurtadoHemoglobin (Bld) [Mass/Vol]13.1 g/dLCritically low14.0-18.0[facility]caraw[facility] HospitalComment on above:Performed By: #### CBC #### [facility] [address] [place] [address] Dr. Leeanna Delvalle #0.05 10e3/ulCritically high0.00-0.03The [facility] Comment on above:Performed By: #### CBC #### [facility] [address] [place] [address] Dr. Leeanna Delvalle %0.4 %Normal0.0-0.5The [facility] HospitalComment on above: Performed By: #### CBC #### [facility] [address] [place] [address] [address] Leeanna Salvador #3.7 103/ulNormal1.2-3.8The [facility] HospitalComment on above:Performed By: #### CBC #### [facility] [address] [place] [address] [address] Leeanna Williammphocytes/100 WBC (Bld)29.6 %Igymqr38.5-60.0The [facility] HospitalComment on above:Performed By: #### CBC #### [facility] [address] [place] [address] [address] Leeanna Farmer DIFF REQNONormalThe [facility] West HospitalComment on above: Performed By: #### CBC #### [facility] [address] [place] [address] Dr. Leeanna Cruz (RBC) [Entitic mass]27.5 zqWoltcn76.9-34.0The [facility] HospitalComment on above:Performed By: #### CBC #### [facility] [address] [place] [address] Dr. Leeanna Cruz (RBC) [Mass/Vol]33.9 g/tKGybzbh25.9-35.2The [facility] HospitalComment on above:Performed By: #### CBC #### [facility] [address] [place] [address] Dr. Leeanna Cruz (RBC) [Entitic vol]80.9 nBShfzoh06.0-94.0The [facility] HospitalComment on above:Performed By: #### CBC #### [facility] [address] [place] [address] Dr. Leeanna Rivas #0.8 103/ulNormal0.3-0.8The [facility] Southment on above:Performed By: #### CBC #### [facility] [address] [place] [address] Dr. Leeanna Chaudharyocytes/100 WBC (Bld)6.6 %Normal1.7-12.0The [facility] Comment on above:Performed By: #### CBC #### [facility] [address] [address] [address] Leeanna Mayen #6.9 103/ulCritically high1.4-6.5The [facility] Comment on above:Performed By: #### CBC #### [facility] [address] [address] [address] Leeanna Floydutrophils/100 WBC (Bld)55.8 %Jaxsbp90.0-75.0The [facility] HospitalComment on above:Performed By: #### CBC #### [facility] [address] [place] [address] Dr. Leeanna HurtadoPlatelet mean volume (Bld) [Entitic vol]9.8 fLNormal9.5-13.5The [facility] HospitalComment on above:Performed By: #### CBC #### [facility] [address] [place] [address] Dr. Leeanna HurtadoPLT267 103/dtZylqpr466-461Bmn [facility] HospitalComment on above: Performed By: #### CBC #### [facility] [address] [place] [address] Dr. Leeanna HurtadoRBC4.77 106/ulNormal4.70-6.10The [facility] HospitalComment on above:Performed By: #### CBC #### [facility] [address] [place] [address] Dr. Leeanna HurtadoWBC12.3 103/ulCritically high4.0-11.0The [facility] HospitalComment on above:Performed By: #### CBC #### [facility] [address] [place] [address] Dr. Leeanna HurtadoPROF CHEM 8 (BAS METB)on 62-35-8215Vzuuc gap [Moles/Vol]12.0 mmol/LNormalThe [facility] HospitalComment on above:Performed By: #### BMP #### [facility] [address] [place] [address] Dr. Leeanna HurtadoCalcium [Mass/Vol]8.7 mg/dLNormal8.5-10.1The [facility] Comment on above:Performed By: #### BMP #### [facility] [address] [address] [address] Leeanna HurtadoChloride [Moles/Vol]108 mmol/LCritically xehw56-773Mta [facility] HospitalComment on above:Performed By: #### BMP #### [facility] [address] [address] [address] Leeanna HurtadoCO2 [Moles/Vol]25.5 mmol/TGidihm09.0-32.0The [facility] Comment on above:Performed By: #### BMP #### [facility] [address] [address] [address] Leeanna HurtadoCreatinine [Mass/Vol]1.67 mg/dLCritically high0.70-1.30The [facility] HospitalComment on above:Performed By: #### BMP #### [facility] [address] [place] [address] Dr. Leeanna GonzalezGFR-AF FAMUBEBW73 mL/min/1.15n6Gujadxzduk low>=60The [facility] HospitalComment on above:Performed By: #### BMP #### [facility] [address] [place] [address] Dr. Leeanna Lopez-NON AF RHIWBCSQ89 mL/min/1.66z6Inchmusxgy low>=60The [facility] HospitalComment on above:Performed By: #### BMP #### [facility] [address] [address] [address] Leeanna HurtadoGlucose [Mass/Vol]105 mg/hFFixzfj99-715Lof [facility] Comment on above:Performed By: #### BMP #### [facility] [address] [address] [address] Leeanna HurtadoPotassium [Moles/Vol]3.5 mmol/LNormal3.5-5.1[facility] Comment on above:Performed By: #### BMP #### [facility] [address] [address] [address] Leeanna HurtadoSodium [Moles/Vol]142 mmol/SAfhgtq556-730Trf [facility] Comment on above:Performed By: #### BMP #### [facility] [address] [address] [address] Leeanna Amin nitrogen [Mass/Vol]22.0 mg/dLCritically high7.0-18.0[facility]aw[facility] HospitalComment on above:Performed By: #### BMP #### [facility] [address] [address] [address] Leeanna HurtadoUrea nitrogen/Creatinine [Mass ratio]13.2 mg/mgNormalThe [facility] HospitalComment on above:Performed By: #### BMP #### [facility] [address] [address] [address] Leeanna Bloom, HIGH SENSITIVITYon 68-93-2007LBPRBY90.6 pg/mLNormal 4.0-76.1The [facility] HospitalComment on above:Result Comment: CUT-OFF POINTS HAVE BEEN ESTABLISHED BASED ON THE FOURTH UNIVERSAL DEFINITIONS OF MYOCARDIAL INFARCTION. THE UPPER REFERENCE LIMIT (URL) OF TROPONIN, DEFINED THE 99TH PERCENTILE OF cTnI DISTRIBUTION IN A REFERENCE POPULATION, HAS BEEN CONFIRMED THE DECISION THRESHOLD FOR [place] DIAGNOSIS.Performed By: #### BNP, HSTROPN #### [facility] [address] [address] [address] Leeanna HurtadoUS Venous, Unilat, Lower Ext Lefton 39-81-4054PH Venous, Unilat, Lower Ext LeftCLINICAL HISTORY: Left leg edema and lump for [...] and signed by Yassine Connolly on 12/21/2022 1058NormalNorthern Methodist North Hospital SpecialistCreatinine (Bld) [Mass/Vol]Ordered By: Betty Aguilar on 54-90-7242Fajomuttoy [Mass/Vol]2.2 mg/dL0.6-1.3FOur Lady of Mercy Hospital Comment on above:ER/ESD physician is notified/shown all ISTAT results.Critical values may be confirmed by laboratorytesting ifdeemed necessary by ER attending doctor.ISTAT XRay CREon 20-50-2391Zxjynknucn [Mass/Vol]2.2 mg/dLHigh0.6-1.3 [facility] - WestComment on above:Result Comment: ER/ESD physician is notified/shown all ISTAT results. Critical values may be confirmed by laboratory testing if deemed necessary by ER attending doctor.Performed By: #### ISCRE #### [address] Point of Care testing ,ISTAT GFR ( Btrhzyoo57ZxxfsgZronhgapnNationwide Children's HospitalComment on above:Result Comment: GFR estimated reference range: According to KDOQI guidelines, <60 ml/min/1.73m2 is sufficient to diagnose a patient with chronic kidney disease. PERFORMED BY: [place] [address] PATHOLOGIST [employer] TECHNICIAN YAKOV MEZA M.D.Performed By: #### ISCRE #### [address] Point of Care testing ,ISTAT GFR (Non- Dl81XdydocKwbqovwlqNationwide Children's HospitalComment on above:Performed By: #### ISCRE #### [address] Point of Care testing ,MR prostate wo conon 52-52-9019YK prostate wo [facility] [place] [address] [place] [address] MRI Report Signed Patient: Natalya Reed JR MR#: [id number] : 1955 Acct:[id number] Age/Sex: 67 / M ADM Date: 12/13/22 Loc: MR Room: Type: [facility] Attending Dr: Betty Aguilar MD Copies to: [...] changes. Impression dictated by: Clifford Corley Jr., DDevorahODevorah12/13/2022 4:24 PM Dictation Location: [place] [address] Transcribed By: [facility] 12/13/22 1624 Dictated By: Clifford Corley Jr, DO 12/13/22 1616 Signed By: 12/13/22 1624NoAshtabula County Medical CenterNo Panel InformationOrdered By: Betty Aguilar on 30-98-0330YWN Estimated GFR Opbdcxhq81Zkreilj[address] [place], [place] [address]Comment on above:GFR estimated reference range: According to KDOQI guidelines, <60 ml/min/1.73m2 is sufficient todiagnose a patient with chronic kidney disease.POC Estimated GFR Non- Mjjp31Ptjhfezul[address] [place], [place] [address]URINALYSISOrdered By: Aj Rodriguez on 42-85-4199Fugkkdmlp Ql (U) Negative (10/05/22 12:26 PM)NormalNegativeINTEGR[facility] U[facility] Auto SSClarity (U)Clear (10/05/22 12:26 PM)NormalClearFPUSHMATAHA HOSPITAL – ANTLERS UA Auto SSColor (U)Yellow (10/05/22 12:26 PM)NormalYellowINTEGRIS [facility]ALTH [facility] Auto SSEpithelial cells.squamous LM.HPF (Urine sed) [#/Area]0-2 /HPFNormal0-2/HPFINTEGRIS HEALTH [facility] UA Auto SSGlucose Test strip (U) [Mass/Vol]Negative (10/05/22 12:26 PM)NormalNegativeINTEGRIS HEALTH [facility] UA Auto SSHemoglobin Ql (U)Trace *ABN* (10/05/22 12:26 PM)Invalid Interpretation CodeNegativeINTEGRIS [facility] Auto SSKetones (U) [Mass/Vol]Negative (10/05/22 12:26 PM)NormalNegativeINTEGRIS [facility]A Auto SSLithium.plasma/Cleves.RBC (Bld) [Mass ratio]0-3 /HPFNormal0-3/HPFINTEGRIS HEALTH [facility] UA Auto SSNitrite Ql (U)Negative (10/05/22 12:26 PM)NormalNegativeINTEGRIS [facility] Auto SSpH (U)5.5 *NA* (10/05/22 12:26 PM)Invalid Interpretation Code5.0 - 9.0[facility] Auto SSProtein (U) [Mass/Vol]3+ *ABN* (10/05/22 12:26 PM)Invalid Interpretation CodeNegativeINTEGRIS [facility]ALTH [facility] UA Auto SSSpecific gravity (U) [Rel density]1.020 *NA* (10/05/22 12:26 PM)Invalid Interpretation Code1.005 - 1.030[facility] Auto SSUA Spec DescRandom Urine (10/05/22 12:26 PM)NormalINTEGRIS HEALTH [facility]MON[facility] UA Auto SSUrobilinogen Qn (U)0.5130955 {Ingrid'U}/dLNormal0.0 - 1.0 EU/dLINTEGRIS [facility]ALTH [facility]A Auto SSWBC Auto Ql (U)Negative (10/05/22 12:26 PM)NormalNegativeINTEGR[facility] Auto SSWBC casts LM.LPF (Urine sed) [#/Area]0-3 (10/05/22 12:26 PM)NormalINTEGRIS HEALTH [facility]MON[facility] UA Auto SSWBC LM.HPF (Urine sed) [#/Area]0-5 /HPF Normal0-5/HPFINTEGRIS HEALTH [facility]MON[facility] UA Auto SSLDL Chol, Directon 13-18-0124POK Chol, Xdulsk360 mg/dLHigh<100Mer[facility] Community HospitalComment on above:Performed By: #### LIPR, LDLDIR #### [employer] [address] [place] [address] [employer]: Alexandr Sandhu MDLipid Profileon 25-64-0061Tzxgnuewwwg,LDLNormal 0-130Prem[facility] Hospital SouthComment on above:Result Comment: Calculation not valid for Triglyceride value greater than 400 mg/dL. Direct LDL reflexed LDL Guidelines: <100 Desirable 100-129 Near to/above Desirable 130-159 Borderline >159 Undesirable Direct (measured) LDL and calculated LDL are not interchangeable tests.Performed By: #### LIPMarine, LDLDIR #### [employer] [address] [place] [address] [employer]: MEG Palomoholesterol [Mass/Vol]249 mg/dLHigh<200Prem[facility] Hospital SouthComment on above:Result Comment: Cholesterol Guidelines: <200 Desirable 200-240 Borderline >240 UndesirablePerformed By: #### LIPR, LDLDIR #### [address] [address] [employer]: MEG Palomoholesterol in HDL [Mass/Vol]29 mg/dLLow>40Prem[facility] Hospital SouthComment on above:Result Comment: HDL Guidelines: <40 Undesirable 40-59 Borderline >59 DesirablePerformed By: #### LIPR, LDLDIR #### [address] [address] [employer]: MEG Palomoholesterorashel.total/Cholesterol in HDL [Mass ratio]8.6 {ratio}High<5Prem[facility] Hospital SouthComment on above: Performed By: #### LIPR, LDLDIR #### [employer] [address] [place] [address] [employer]: Alexandr Sandhu MDTriglyceride [Mass/Vol]514 mg/dLHigh<150Mer[facility] Rock Medical CenterComment on above:Result Comment: Triglyceride Guidelines: <150 Desirable 150-199 Borderline 200-499 High >499 Very high Based on AHA Guidelines for fasting triglyceride, July 2012.Performed By: #### LIPR LDLDIR #### [employer] [address] [place] [address] [id number] [employer]: JHON PalomoR HIP 2-3 VW W PELVIS RIGHTon 25-64-3062JB HIP 2-3 VW W PELVIS RIGHTEXAMINATION: ONE XRAY VIEW OF THE PELVIS AND [...] Signed by: Sue Mcleod MD 09/09/22 Final resultNormalPremier Health Miami Valley Hospital SouthBasic Metabolic Profon 11-85-6563Mmely gap [Moles/Vol]17 mmol/LNormal9-17[facility] Hospital SouthComment on above:Performed By: #### CDP, IPF, BMP, BNP, TROPI #### [employer] [address] [place] [address] [employer]: MEG Palomoalcium [Mass/Vol]9.3 mg/dLNormal8.6-10.4[facility] Hospital SouthComment on above:Performed By: #### CDP, IPF, BMP, BNP, TROPI #### [employer] [address] [place] [address] [employer]: MEG Palomohloride [Moles/Vol]100 mmol/UKlxfjx49-760RceycPremier Health Miami Valley Hospital SouthComment on above:Performed By: #### CDP, IPF, BMP, BNP, TROPI #### [employer] [address] [place] [address] [employer]: MEG PalomoO2 [Moles/Vol]22 mmol/GGumfop33-40GyeqsPremier Health Miami Valley Hospital SouthComment on above:Performed By: #### CDP, IPF, BMP, BNP, TROPI #### [address] [id number] [employer]: MEG Palomoreatinine [Mass/Vol]1.40 mg/dLHigh0.70-1.20 [facility] Hospital SouthComment on above:Performed By: #### CDP, IPF, BMP, BNP, TROPI #### [address] [address] [employer]: Alexandr Sandhu MDGFR/1.73 sq M.predicted among non-blacks MDRD (S/P/Bld) [Vol rate/Area]55 mL/min/{1.73_m2}Low>60Prem[facility] Hospital SouthComment on above:Result Comment: Effective Jul 26, 2022 These results [...] or following therapy that affects renal tubular secretion.Performed By: #### SANGEETHA, IPF, BMP, BNP, TROPI #### [place] [address] [employer]: Alexandr Sandhu MDGlucose [Mass/Vol]144 mg/rDGuwg56-03Qnanb Lancaster Community HospitalComment on above:Performed By: #### CDP, IPF, BMP, BNP, TROPI #### [address] [address] [employer]: ESVIN Palomootassium [Moles/Vol]3.9 mmol/LNormal3.7-5.3 [facility] Hospital SouthComment on above:Performed By: #### CDP, IPF, BMP, BNP, TROPI #### [facility] [place] [address] [employer]: LUIS Palomoodium [Moles/Vol]139 mmol/KIbrnot390-386EtbzpPremier Health Miami Valley Hospital SouthComment on above:Performed By: #### CDP, IPF, BMP, BNP, TROPI #### [facility] [address] [place] [address] [employer]: Alexandr Sandhu MDUrea nitrogen [Mass/Vol]36 mg/dLHigh8-23[facility] Hospital SouthComment on above:Performed By: #### CDP, IPF, BMP, BNP, TROPI #### [facility] [address] [place] [address] [employer]: Alexandr Sandhu MDBrain Natri. Peptideon 24-39-2013Vgonztwwoma peptide B (Bld) [Mass/Vol]847 pg/mLHigh<300[facility] Comment on above:Result Comment: An age-independent cutoff point of 300 pg/ml has a 98% negative predictive value excluding acute heart failure.Performed By: #### CDP, IPF, BMP, BNP, TROPI #### [facility] [address] [place] [address] [employer]: Alexandr Sandhu [facility] with Diffon 95-00-2139Mog. Basophil0.09 k/uL Normal0.00-0.20[facility] Hospital SouthComment on above:Performed By: #### CDP, IPF, BMP, BNP, TROPI #### [facility] [address] [place] [address] [employer]: Itz Palomo.Imm.Granulocyte0.07 k/uLNormal0.00-0.30[facility] Hospital SouthComment on above:Performed By: #### CDP, IPF, BMP, BNP, TROPI #### [facility] [address] [place] [address] [id number] [employer]: Itz Palomo.Neutrophil (Seg)9.38 k/uLHigh1.50-8.10[facility] Hospital SouthComment on above:Performed By: #### CDP, IPF, BMP, BNP, TROPI #### [employer] [address] [place] [address] [employer]: Alexandr Sandhu MDBasophils/100 WBC (Bld)1 %Normal0-2MKaweah Delta Medical CenterComment on above:Performed By: #### CDP, IPF, BMP, BNP, TROPI #### [employer] [address] [place] [address] [employer]: Alexandr Sandhu MDEosinophils (Bld) [#/Vol]0.35 10*3/uLNormal 0.00-0.44[facility] SouthComment on above:Performed By: #### CDP, IPF, BMP, BNP, TROPI #### [employer] [address] [place] [address] [employer]: LULÚ Palomoosinophils/100 WBC (Bld)3 %Normal1-4[facility] Hospital SouthComment on above:Performed By: #### CDP, IPF, BMP, BNP, TROPI #### [employer] [address] [place] [address] [employer]: Alexandr Sandhu MDErythrocyte distribution width (RBC) [Ratio]15.0 %High11.8-14.4[facility] Hospital SouthComment on above:Performed By: #### CDP, IPF, BMP, BNP, TROPI #### [employer] [address] [place] [address] [employer]: Alexandr Sandhu MDHematocrit (Bld) [Volume fraction]39.8 %Low 40.7-50.3MKaweah Delta Medical CenterComment on above:Performed By: #### CDP, IPF, BMP, BNP, TROPI #### [facility] [address] [place] [address] [employer]: Alexandr Sandhu MDHemoglobin (Bld) [Mass/Vol]13.1 g/dLNormal 13.0-17.0[facility] SouthComment on above:Performed By: #### CDP, IPF, BMP, BNP, TROPI #### [address] [address] [employer]: Alexandr Sandhu MDImmature granulocytes/100 WBC (Bld)1 %Fwfm5CngbmPremier Health Miami Valley Hospital SouthComment on above:Performed By: #### CDP, IPF, BMP, BNP, TROPI #### [address] [address] [employer]: Alexandr Sandhu MDLymphocytes (Bld) [#/Vol]2.04 10*3/uLNormal 1.10-3.70[facility] Hospital SouthComment on above:Performed By: #### CDP, IPF, BMP, BNP, TROPI #### [place] [address] [employer]: Sean Palomomphocytes/100 WBC (Bld)16 %Vbm80-97HxqwdPremier Health Miami Valley Hospital SouthComment on above:Performed By: #### CDP, IPF, BMP, BNP, TROPI #### [facility] [address] [place] [address] [employer]: SHEYLA PalomoCH (RBC) [Entitic mass]29.0 krGwlpoe43.2-33.5 [facility] Hospital SouthComment on above:Performed By: #### CDP, IPF, BMP, BNP, TROPI #### [facility] [address] [place] [address] [employer]: KOKI PalomoC (RBC) [Mass/Vol]32.9 g/qBRqnpgp89.4-34.8 [facility] Hospital SouthComment on above:Performed By: #### CDP, IPF, BMP, BNP, TROPI #### [facility] [address] [place] [address] [employer]: SHEYLA PalomoCV (RBC) [Entitic vol]88.1 zJKodwdc79.6-102.9 [facility] SouthComment on above:Performed By: #### CDP, IPF, BMP, BNP, TROPI #### [facility] [address] [place] [address] [employer]: SHEYLA Palomoonocytes (Bld) [#/Vol]0.87 10*3/uLNormal 0.10-1.20[facility] SouthComment on above:Performed By: #### CDP, IPF, BMP, BNP, TROPI #### [facility] [address] [place] [address] [employer]: SHEYLA Palomoonocytes/100 WBC (Bld)7 %Normal3-12[facility] SouthComment on above:Performed By: #### CDP, IPF, BMP, BNP, TROPI #### [facility] [address] [place] [address] [employer]: Betty Palomoophil (Seg)73 %Mqmd02-71WixiyPremier Health Miami Valley Hospital SouthComment on above:Performed By: #### CDP, IPF, BMP, BNP, TROPI #### [facility] [address] [place] [address] [employer]: Alexandr Sandhu MDNRBC Automated0.0 per 100 WBCNormal0.0[facility] SouthComment on above:Performed By: #### CDP, IPF, BMP, BNP, TROPI #### [facility] [address] [place] [address] [employer]: Taylor Palomo CountSee Reflexed IPF ResultNormal 138-453Prem[facility] Hospital SouthComment on above:Performed By: #### CDP, IPF, BMP, BNP, TROPI #### [address] [address] [employer]: JANET Palomo (Bld) [#/Vol]4.52 10*6/uLNormal4.21-5.77 [facility] SouthComment on above:Performed By: #### CDP, IPF, BMP, BNP, TROPI #### [address] [address] [employer]: JANET Palomo morphology finding Nom (Bld)ANISOCYTOSIS PRESENTNormalPremier Health Miami [facility] Hospital SouthComment on above:Performed By: #### CDP, IPF, BMP, BNP, TROPI #### [facility] [address] [place] [address] [employer]: YANI Palomo (Bld) [#/Vol]12.8 10*3/uLHigh3.5-11.3Mcleveland clinic hill[facility] hospitaly [facility] Community HospitalComment on above:Performed By: #### CDP, IPF, BMP, BNP, TROPI #### [facility] [address] [place] [address] [employer]: MDAbs. Dewey Basophil0.08 k/uLNormal0.00-0.20[facility] Samaritan HospitalComment on above:Performed By: #### PT, TROPI, CDP, CP #### [address] [place], [place] [id number] [employer]: MDAbs. LuisImm.Granulocyte0.06 k/uLNormal0.00-0.30[facility] HospitalComment on above:Performed By: #### PT, TROPI, CDP, CP #### [address] Senior, [place] [address] [employer]: Itz Smith.Neutrophil (Seg)8.48 k/uLHigh1.50-8.10[facility] HospitalComment on above:Performed By: #### PT, TROPI, CDP, CP #### [address] [place] [address] [employer]: Meche Ellis MDBasophils/100 WBC (Bld)1 %Normal0-2MercMiami Valley Hospital HospitalComment on above:Performed By: #### PT, TROPI, CDP, CP #### [address] [place] [address] [employer]: Meche Ellis MDEosinophils (Bld) [#/Vol]0.37 10*3/uLNormal 0.00-0.44[facility] HospitalComment on above:Performed By: #### PT, TROPI, CDP, CP #### [address] Senior, [place] [address] [employer]: LULÚ Smithosinophils/100 WBC (Bld)3 %Normal1-4[facility] HospitalComment on above:Performed By: #### PT, TROPI, CDP, CP #### [address] [place] [address] [employer]: Meche Ellis MDErythrocyte distribution width (RBC) [Ratio]14.6 % High11.8-14.4[facility] HospitalComment on above:Performed By: #### PT, TROPI, CDP, CP #### [address] [place] [address] [employer]: Meche Ellis MDHematocrit (Bld) [Volume fraction]38.6 %Low 40.7-50.3[facility]yville HospitalComment on above:Performed By: #### PT, TROPI, CDP, CP #### [address] Senior, [facility]83 [employer]: Meche Ellis MDHemoglobin (Bld) [Mass/Vol]13.4 g/dLNormal 13.0-17.0[facility] HospitalComment on above:Performed By: #### PT, TROPI, CDP, CP #### [address] Senior, [place] [address] [employer]: Meche Ellis MDImmature granulocytes/100 WBC (Bld)1 %Gtmj0ZemlnCincinnati Shriners Hospital HospitalComment on above:Performed By: #### PT, TROPI, CDP, CP #### [address] [place] [address] [employer]: Meche Ellis MDLymphocytes (Bld) [#/Vol]1.76 10*3/uLNormal 1.10-3.70[facility] HospitalComment on above:Performed By: #### PT, TROPI, CDP, CP #### [address] Senior, [place] [address] [employer]: Sean Smithmphocytes/100 WBC (Bld)15 %Ldd22-05Lxtsr [facility]iffin HospitalComment on above:Performed By: #### PT, TROPI, CDP, CP #### [address] Senior, [place] [address] [employer]: SHEYLA SmithCH (RBC) [Entitic mass]29.6 mlZnkdyc59.2-33.5 [facility] HospitalComment on above:Performed By: #### PT, TROPI, CDP, CP #### [address] Senior, [facility]83 [employer]: KOKI SmithC (RBC) [Mass/Vol]34.7 g/xWAcaayi97.4-34.8[facility] HospitalComment on above:Performed By: #### PT, TROPI, CDP, CP #### [address] Senior, [place] [address] [employer]: SHEYLA SmithCV (RBC) [Entitic vol]85.4 kTMmirpe09.6-102.9 [facility] HospitalComment on above:Performed By: #### PT, TROPI, CDP, CP #### [address] Senior, [facility]83 [employer]: SHEYLA Smithonocytes (Bld) [#/Vol]0.80 10*3/uLNormal0.10-1.20 [facility] HospitalComment on above:Performed By: #### PT, TROPI, CDP, CP #### [address] Senior, [place] [address] [employer]: SHEYLA Smithonocytes/100 WBC (Bld)7 %Normal3-12[facility] HospitalComment on above:Performed By: #### PT, PANFILO, SANGEETHA, CP #### [address] Senior, [place] [address] [employer]: Stephania Smithutrophil (Seg)73 %Ksfz45-97RdyzxGood Samaritan Hospital Comment on above:Performed By: #### PT, TROPI, CDP, CP #### [address] [place], [place] [address] [employer]: Meche Ellis MDNRBC Automated0.0 per 100 WBCNormal0.0Good Samaritan HospitalComment on above:Performed By: #### PT, TROPI, CDP, CP #### [address] [place], [place] [id number] [employer]: ESVIN Smithlatelet mean volume (Bld) [Entitic vol]10.9 fL Normal8.1-13.5[facility]aritan HospitalComment on above:Performed By: #### PT, TROPI, CDP, CP #### [address] [place], [place] [id number] [employer]: Garfield Smith ([facility]) [#/Vol]271 10*3/jJKtdmim811-395 [facility] HospitalComment on above:Performed By: #### PT, TROPI, CDP, CP #### [address] [place], [place] [id number] [employer]: JANET Smith ([facility]) [#/Vol]4.52 10*6/uLNormal4.21-5.77[facility] HospitalComment on above:Performed By: #### PT, PANFILO, SANGEETHA, CP #### [address] [place], [place] [id number] [employer]: YANI Smith ([facility]) [#/Vol]11.6 10*3/uLHigh3.5-11.3MMarietta Memorial HospitalComment on above:Performed By: #### SOHAIL, SANGEETHA WHITTAKER, CP #### [address] [place], [place] [id number] [employer]: DELMI Smith CERVICAL SPINE WO CONTRASTon 67-42-1644DY CERVICAL SPINE WO CONTRASTEXAMINATION: CT OF THE CERVICAL SPINE WITHOUT CONTRAST [...] Signed by: Richard Kenyon MD 09/09/22 Final resultNormalMerYale New Haven Hospital CHEST ABDOMEN PELVIS W CONTRASTon [id number] CHEST ABDOMEN PELVIS W CONTRASTEXAMINATION: CT OF THE CHEST, ABDOMEN, AND PELVIS [...] Interpreted by: Mahad Salter MD Signed by: Maahd Salter MD 09/09/22 Final resultNormalMerYale New Haven Hospital HEAD WO CONTRASTon [id number] HEAD WO CONTRASTEXAMINATION: CT OF THE HEAD WITHOUT CONTRAST 09/09/2022 [...] Signed by: Richard Kenyon MD 09/09/22 Final resultNormalMercy [facility]lord Hospital IAC POSTERIOR FOSSA WO CONTRASTon 19-86-2331VQ IAC POSTERIOR FOSSA WO CONTRASTEXAMINATION: CT OF THE INTERNAL AUDITORY CANAL WITHOUT [...] Signed by: Bob Lay MD 09/09/22 Final resultNoMiddletown HospitalCT LUMBAR SPINE TRAUMA RECONSTRUCTIONon [id number] LUMBAR SPINE TRAUMA RECONSTRUCTIONEXAMINATION: CT OF THE LUMBAR SPINE WITHOUT CONTRAST [...] space narrowing, osteophytes and subchondral sclerosis. SOFT TISSUES/RETROPERITONEUM: No paraspinal mass is seen. IMPRESSION: No acute abnormalities noted. Interpreted by: Mahad Salter MD Signed by: Mahad Salter MD 09/09/22 Final resultNoMiddletown HospitalCT THORACIC SPINE TRAUMA RECONSTRUCTIONon 30-89-3886KP THORACIC SPINE TRAUMA RECONSTRUCTIONEXAMINATION: CT OF THE THORACIC SPINE WITHOUT CONTRAST [...] Signed by: Mahad Salter MD 09/09/22 Final resultNormalMercy Lancaster Community HospitalCTA HEAD NECK W CONTRASTon 98-82-2671VMD HEAD NECK W CONTRASTEXAMINATION: CTA OF THE HEAD AND NECK WITH [...] for review. This scan was analyzed using [employer] contact LVO. Identification of suspected findings is [...] Signed by: Richard Kenyon MD 09/09/22 Final resultNormalBucyrus Community Hospitalp Metabolic Profon 44-09-5697JUA [Catalytic activity/Vol]U/LLow5-41[facility]aritan HospitalComment on above: Performed By: #### PTPANFILO CDP, CP #### [address] [place] [address] [employer]: Meche Ellis MDAST [Catalytic activity/Vol]U/LNormal<40[facility]aritan HospitalComment on above:Performed By: #### PTPANFILO CDP, CP #### [address] [place], [place] [address] [employer]: Meche Ellis MDAlbumin [Mass/Vol]3.4 g/dLLow3.5-5.2MercConnecticut Valley HospitalComment on above:Performed By: #### PT TROPISANGEETHA, CP #### [address] [place] [address] [employer]: Meche Ellis MDAlbumin/Glob Ratio0.9Low1.0-2.5[facility] on above:Performed By: #### PT TROPISANGEETHA, CP #### [address] [place] [address] [employer]: Olive Smith Coqn671 U/MLpxkzg16-369EbufuGood Samaritan HospitalComment on above:Performed By: #### PT, TROPI, CDP, CP #### [address] [place] [address] [employer]: Meche Ellis MDAnion gap [Moles/Vol]9 mmol/LNormal9-17[facility] HospitalComment on above:Performed By: #### PT, TROPI, CDP, CP #### [address] [place] [address] [employer]: Meche Ellis MDBilirubin [Mass/Vol]0.2 mg/dLLow0.3-1.2MMarietta Memorial HospitalComment on above:Performed By: #### PT, WOODYI, CDP, CP #### [address] [place] [address] [employer]: Meche Ellis MDBUN/CRE Xvbmp63Jfgt2-40TikwnGood Samaritan Hospital Comment on above:Performed By: #### PT, WOODYI, CDP, CP #### [address] [place] [address] [employer]: MEG Smithalcium [Mass/Vol]9.7 mg/dLNormal8.6-10.4[facility]itan HospitalComment on above:Performed By: #### PT, TROPI, CDP, CP #### [address] [place] [address] [employer]: MEG Smithhloride [Moles/Vol]99 mmol/HQgaqkv60-703HcfviGood Samaritan HospitalComment on above:Performed By: #### PT, TROPI, CDP, CP #### [address] [place] [address] [employer]: MEG SmithO2 [Moles/Vol]30 mmol/HNgzpdf84-87EynymGood Samaritan HospitalComment on above:Performed By: #### PTPANFILO CDP, CP #### [address] [place] [address] [employer]: MEG Smithreatinine [Mass/Vol]1.59 mg/dLHigh0.70-1.20[facility]itan HospitalComment on above:Performed By: #### PT TROPISANGEETHA, CP #### [facility] [address] [place] [address] [employer]: Meche Ellis MDGFR/1.73 sq M.predicted among non-blacks MDRD (S/P/Bld) [Vol rate/Area]47 mL/min/{1.73_m2}Low>60[facility] Samaritan HospitalComment on above:Result Comment: Effective Jul 26, 2022 These results [...] or following therapy that affects renal tubular secretion.Performed By: #### PANFILO SAUCEDA CDP, CP #### [address] [place] [address] [employer]: Meche Ellis MDGlucose [Mass/Vol]98 mg/kDJbidpo62-55Ohxol Johnson Memorial HospitalComment on above:Performed By: #### PTPANFILO CDP, CP #### [address] [place] [address] [employer]: ESVIN Smithotassium [Moles/Vol]4.0 mmol/LNormal3.7-5.3MMarietta Memorial HospitalComment on above:Performed By: #### PTWOODYISANGEETHA, CP #### [address] [place], [place] 0023183 [employer]: ESVIN Smithrotein [Mass/Vol]7.1 g/dLNormal6.4-8.3[facility]yville HospitalComment on above:Performed By: #### PT, TROPI, CDP, CP #### [address] [place], [facility]83 [employer]: LUIS Smithodium [Moles/Vol]138 mmol/CQjyfyw637-591Hyysz Eddyville HospitalComment on above:Performed By: #### PT, TROPI, CDP, CP #### [address] [place] [address] [employer]: Meche Ellis MDUrea nitrogen [Mass/Vol]37 mg/dLHigh8-23[facility] HospitalComment on above:Performed By: #### PT, TROPI, CDP, CP #### [address] [place], [facility]83 [employer]: YING Smithrug Scr, Abuse, Uron 28-99-9708Ajrbvtupttn(s),Ur NegativeNormalNEGMercy Eddyville HospitalComment on above:Performed By: #### UMICAO, KENDRA, UAX ####[address] , [facility]83 [facility] Director: Meche Ellis MDBarbiturate(s),UrNegative NormalNEGMercy Eddyville HospitalComment on above:Performed By: #### UMICAO, KENDRA, UAX ####[address] [place] [address] [facility] Director: Meche Ellis MDBenzodiazepine(s)NegativeNormal NEGMercy Eddyville HospitalComment on above:Performed By: #### UMICAO, KENDRA, UAX ####[address] , [phone] Director: Meche Ellis MDBuprenorphrine, UrNegativeNormalNEGMercy Eddyville HospitalComment on above:Performed By: #### UMICAO, KENDRA, UAX ####[address] [place] [address] Lab Director: MEG Smithannabinoid(s),UrNegativeNormalNEGMercy Eddyville HospitalComment on above:Performed By: #### UMICAO, KENDRA, UAX ####[address] [place] [address] Lab Director: MEG Smithocaine MetaboliteNegativeNormalNEGMercy Eddyville HospitalComment on above:Performed By: #### UMICAO, KENDRA, UAX ####[address] , [facility] Lab Director: SHEYLA Smithethadone Ql (U)NegativeNormalNEGMercy Eddyville HospitalComment on above: Performed By: #### UMICAO, KENDRA, UAX ####[address] [place] [address] Lab Director: Meche Ellis MD Methamphetamine, UrNegativeNormalNEGMercy Eddyville HospitalComment on above: Performed By: #### UMICAO, KENDRA, UAX ####[address] [place] [address] Lab Director: Meche Ellis MD Opiate(s), UrNegativeNormalNEGMercy Eddyville HospitalComment on above:Performed By: #### UMICAO, KENDRA, UAX ####[address] [place] [address] Lab Director: Meche Ellis MDOxycodone, Urine NegativeNormalNEGMercy Eddyville HospitalComment on above:Performed By: #### UMICAO, KENDRA, UAX ####[address] , [place] [id number] [facility] Director: ESVIN Smithhencyclidine, UrNegative NormalNEGCincinnati Shriners Hospital HospitalComment on above:Performed By: #### UMICAO, KENDRA, UAX ####[address] , [facility]83 [facility] Director: ESVIN Smithropoxyphene,UrineNegativeNormal NEGMerUniversity Hospitals Ahuja Medical Center HospitalComment on above:Performed By: #### UMICAO, KENDRA, UAX ####[address] , [phone] Director: Meche Ellis MDTricyclic antidepressants Screen Ql (U) NegativeNormalNEGMiddletown Hospitalcy Eddyville HospitalComment on above:Result Comment: Drug screen results are to be used for medical purposes only. All positive results are unconfirmed. Testing for employment or legal uses should be sent to a reference laboratory for confirmation.Performed By: #### CHARITO JONESU, UAX ####[address] [place] [phone] Director: Meche Ellis MDEthanol Alcoholon 77-16-7138Cjhkaco [Mass/Vol] mg/dLNormal<10Mer[facility]yville HospitalComment on above:Performed By: #### ALCB #### [address] [place], [facility]83 [employer]: Meche Ellis MDEthanol percent<0.010Normal<0.010Good Samaritan HospitalComment on above:Performed By: #### ALCB #### [address] [place] [address] [employer]: OSBALDO Smith, Immature Fract.on 33-67-3681ClpdwrhmFluoresc.228 k/gGXltfcl091-617XaprgPremier Health Miami Valley Hospital SouthComment on above: Result Comment: ORDERED BY LABPerformed By: #### CDP, IPF, BMP, BNP, TROPI #### [employer] [address] [place], [place] [address] [employer]: OSBALDO Palomo, Immature Fract.10.2 %Normal1.1-10.3MercSan Gorgonio Memorial HospitalComment on above:Result Comment: ORDERED BY LAB Performed By: #### CDP, IPF, BMP, BNP, TROPI #### [employer] [address] [place] [address] [employer]: Cookie Palomo 11-84-6840OHV Coag (PPP) [Relative time]1.0 {INR}[facility] HospitalComment on above:Result Comment: Non-therapeutic Range: INR = 0.9-1.2 Therapeutic Range: Moderate Anticoagulant Intensity: INR = 2.0-3.0 High Anticoagulant Intensity: INR = 2.5-3.5Performed By: #### PT, TROPI, CDP, CP #### [address] [place] [address] [employer]: MICHAEL Smith Coag (PPP) [Time]13.2 vEtobmq64.5-14.2[facility] Memorial HospitalComment on above:Performed By: #### PT, TROPI, CDP, CP #### [address] [place] [address] [employer]: FREDI SmithCoV-2on 37-10-8002BYIS-CoV-2 (COVID-19) RNA RUBEN+probe Ql (Unsp spec)Not detectedNormalNOTDEUniversity [facility]als [facility] Comment on above:Result Comment: Rapid NAAT: The specimen is NEGATIVE [...] management decisions. Fact sheet for Healthcare Providers: https://www.fda.gov/media/875612/download Fact sheet for Patients: https://www.fda.gov/media/486131/download Methodology: Isothermal Nucleic Acid AmplificationPerformed By: #### COVRB ####[facility] [address] [place] [address] [facility] Director: Erica Palomo 82-75-2078Trujpkiv, High Sens26 ng/LHigh022Premier Health Miami Valley Hospital SouthComment on above:Result Comment: High Sensitivity Troponin values cannot be compared with other Troponin methodologies. Patients with high levels of Biotin oral intake (i.e >5mg/day) may have falsely decreased Troponin levels. Samples collected within 8 hours of biotin intake may require additional information for diagnosis.Performed By: #### TROPI #### [facility] [place] [address] [employer]: Matt Palomo, [facility] Sens23 ng/LHigh013 Hernandez StreetComment on above:Result Comment: High Sensitivity Troponin values cannot be compared with other Troponin methodologies. Patients with high levels of Biotin oral intake (i.e >5mg/day) may have falsely decreased Troponin levels. Samples collected within 8 hours of biotin intake may require additional information for diagnosis.Performed By: #### CDP, IPF, BMP, BNP, TROPI ####[facility] [address] [place] [phone] Director: Matt Palomo, High Sens26 ng/LHigh0-22[facility]itan HospitalComment on above:Result Comment: High Sensitivity Troponin values cannot be compared with other Troponin methodologies. Patients with high levels of Biotin oral intake (i.e >5mg/day) may have falsely decreased Troponin levels. Samples collected within 8 hours of biotin intake may require additional information for diagnosis.Performed By: #### TROPI #### [address] [place], [facility]83 [employer]: Matt Smith, High Sens28 ng/LHigh0-22Mer[facility]yville HospitalComment on above:Result Comment: High Sensitivity Troponin values cannot be compared with other Troponin methodologies. Patients with high levels of Biotin oral intake (i.e >5mg/day) may have falsely decreased Troponin levels. Samples collected within 8 hours of biotin intake may require additional information for diagnosis.Performed By: #### PT, TROPI, CDP, CP #### [address] [place] [address] [employer]: ROSIE Smith w/Reflex Cultureon 19-56-1696Vcakfnnzg, SemiQt,UrNegativeNormalNEGMercy Eddyville HospitalComment on above:Performed By: #### KENDRA JNOES, UAX ####[address] , [facility]83 [facility] Director: Maryse Smith, Urine1+ AbnormalNEGMercy Eddyville HospitalComment on above:Performed By: #### KENDRA JONES, UAX ####[address] , [facility]83 [facility] Director: MEG Smithlarity (U)ClearNormalCLEARMercy Eddyville HospitalComment on above:Performed By: #### KENDRA JONES, UAX ####[address] , [facility]83 Lab Director: MEG Smitholor (U)YellowNormalYELMercy Eddyville HospitalComment on above:Performed By: #### KENDRA JONES, UAX ####[address] [place] [address] Lab Director: Meche Ellis MDGlucose Ql (U)NegativeNormalNEGMercy Eddyville HospitalComment on above:Performed By: #### UMICAO, KENDRA, UAX ####[address] [place] [address] Lab Director: Meche Ellis MDKetones Ql (U) NegativeNormalNEGMercy Eddyville HospitalComment on above:Performed By: #### UMICAO, KENDRA, UAX ####[address] , [facility]83 Lab Director: Meche Ellis MDLeukocyte esterase Test strip Ql (U)NegativeNormalNEGMercy Eddyville HospitalComment on above:Performed By: #### UMICAO, KENDRA, UAX ####[address] , [facility]83 Lab Director: Meche Ellis MDNitrite,UrNegativeNormalNEG [facility]itan HospitalComment on above:Performed By: #### UMICAO, KENDRA, UAX ####[address] [place] [phone] Director: ESVIN Smith,Ur6.3Holdcb9.0-9.0[facility] Comment on above:Performed By: #### UMICAO, KENDRA, UAX ####[address] [place] [address] Lab Director: ESVIN Smithrotein Ql (U)2+AbnormalNEGMercy Johnson Memorial HospitalComment on above: Performed By: #### UMICAO, KENDRA, UAX ####[address] , [place] 30[address] Lab Director: LUIS Smithpec. [place],Ur1.912Rpaosh5.010-1.020Mercy [facility]yville HospitalComment on above:Performed By: #### KENDRA JONES, UAX ####[address] [place] [address] [facility] Director: Meche Ellis MDUrobilinogen,Ur NormalNormalNORMMercy Eddyville HospitalComment on above:Performed By: #### KENDRA JONES, UAX ####[address] , [place] [address] lab Director: Meche Ellis MDUrinalysis,Microon 09-09-2022 Epithelial cells LM Ql (Urine sed)0 TO 7Hwomkg0-0Wxlle [facility]yville HospitalComment on above:Performed By: #### KENDRA JONES, UAX ####[address] , [place] 4[address] [facility] Director: Mg Smith RBC's0 TO 4Vxltcq9-7Dpgsf Eddyville HospitalComment on above:Performed By: #### KENDRA JONES, UAX ####[address] [place] [address] Lab Director: Mg Smith WBC's0 TO 2 Normal0-5Mercy Eddyville HospitalComment on above:Performed By: #### KENDRA JONES, UAX ####[address] , [place] [address]83 Lab Director: JHON SmithR FEMUR LEFT (MIN 2 VIEWS)on 89-94-5141QA FEMUR LEFT (MIN 2 VIEWS)EXAMINATION: 5 XRAY VIEWS OF THE LEFT FEMUR [...] Signed by: Ramin Farah MD 09/09/22 Final resultNormalBucyrus Community Hospitalprehensive Metabolic Panelon 50-63-2704Wnwoiqz [Mass/Vol]3.8 g/dLNormal3.6-5.1[facility] SpecialistComment on above:Performed By: #### TSH reflex FT4, CMP, LDLD, LIPD #### [facility] [address] [place], [place] [id number]/Globulin [Mass ratio]1.2 {ratio}Normal1.0-2.5NoKettering Health Preble SpecialistComment on above:Performed By: #### TSH reflex FT4, CMP, LDLD, LIPD #### [facility] [address] [place], [place] [id number] [Catalytic activity/Vol]130 U/EFfza80-938Ocwtnoaa [facility] SpecialistComment on above:Performed By: #### TSH reflex FT4, CMP, LDLD, LIPD #### [facility] [address], [place] [id number] [Catalytic activity/Vol]18 U/LNormal9-46NoKettering Health Preble SpecialistComment on above:Result Comment: 09/23/2021 Female reference range changed.Performed By: #### TSH reflex FT4, CMP, LDLD, LIPD #### [facility] [address], [place] [id number] gap [Moles/Vol]20 mmol/AZmzzcx47-53Euxeujkh [place] [facility] SpecialistComment on above:Result Comment: Effective 10/29/2019 reference range changed.Performed By: #### TSH reflex FT4, CMP, LDLD, LIPD #### [facility] [address], [place] [id number] [Catalytic activity/Vol]24 U/OGxswvd86-64Yckzqrva [facility] SpecialistComment on above:Performed By: #### TSH reflex FT4, CMP, LDLD, LIPD #### [facility] [address], [place] [id number]/CREA24 RatioHigh6-22NoKettering Health Preble Specialist Comment on above:Performed By: #### TSH reflex FT4, CMP, LDLD, LIPD #### [facility] [address], [place] [id number] [Mass/Vol]10.3 mg/dLHigh8.6-10.2[facility] SpecialistComment on above:Performed By: #### TSH reflex FT4, CMP, LDLD, LIPD #### [facility] [address], [place] [id number] [Moles/Vol]93 mmol/DXmt04-316OxhttysnKettering Health Preble SpecialistComment on above:Performed By: #### TSH reflex FT4, CMP, LDLD, LIPD #### [facility] [address], [place] [id number] [Moles/Vol]25 mmol/BNnzlpx74-65Dwfzuoiz [place] [facility] SpecialistComment on above:Performed By: #### TSH reflex FT4, CMP, LDLD, LIPD #### [facility] [address], [place] [id number] [Mass/Vol]1.9 mg/dLHigh0.7-1.4NoKettering Health Preble SpecialistComment on above:Performed By: #### TSH reflex FT4, CMP, LDLD, LIPD #### [facility] [address], [place] [id number] mL/min/1.92i6Hkm>60NoUkiah Valley Medical Center Outside Event Sales Specialist Comment on above:Performed By: #### TSH reflex FT4, CMP, LDLD, LIPD #### [facility] [address], [place] [id number] mL/min/1.28a0Nhy>60NortHolzer Health SystemOutside Event Sales Specialist Comment on above:Performed By: #### TSH reflex FT4, CMP, LDLD, LIPD #### [facility] [address], [place] [id number] (S) [Mass/Vol]3.3 g/dLNormal1.9-3.7NortHolzer Health System SpecialistComment on above:Performed By: #### TSH reflex FT4, CMP, LDLD, LIPD #### [facility] [address], [place] [id number] [Mass/Vol]499 mg/dLCritically csfj87-71Bddkpbrp [place] [facility] SpecialistComment on above:Result Comment: Critical result called to Silverio at 03/17/2022 3:54 PM by Ivonne Pratt (GLU) For FASTING Glucose --- ADA reference ranges: Normal 65-99 mg/dl Prediabetes 100-125 Diabetes >/= 126Performed By: #### TSH reflex FT4, CMP, LDLD, LIPD #### [facility] [address], [place] [id number] [Moles/Vol]4.3 mmol/LNormal3.5-5.5NortHolzer Health System SpecialistComment on above:Performed By: #### TSH reflex FT4, CMP, LDLD, LIPD #### [facility] [address], [place] [id number] [Mass/Vol]7.1 g/dLNormal6.1-8.1[facility] SpecialistComment on above:Performed By: #### TSH reflex FT4, CMP, LDLD, LIPD #### [facility] [address], [place] [id number] [Moles/Vol]133 mmol/WYqh070-638Raxbnsox [place] [facility] SpecialistComment on above:Performed By: #### TSH reflex FT4, CMP, LDLD, LIPD #### [facility] [address], [place] [id number]<0.3NormalNortHolzer Health System SpecialistComment on above:Performed By: #### TSH reflex FT4, CMP, LDLD, LIPD #### [facility] [address], [place] [id number] nitrogen [Mass/Vol]45 mg/dLHigh7-25NortHolzer Health System SpecialistComment on above:Performed By: #### TSH reflex FT4, CMP, LDLD, LIPD #### [facility] [address], [place] [id number] A1Con 89-02-7659CTS060.66NormalOhio State Health System SpecialistComment on above:Performed By: #### A1C #### [facility] [address], [place] [id number] (Bld) [Mass fraction]12.8 %High4.0-6.0[facility] SpecialistComment on above:Performed By: #### A1C #### [facility] [address], [place] [id number]-Drrpewni 29-82-9776Csfyggpfeds in LDL [Mass/Vol]126 mg/dL NormalSelect Medical Specialty Hospital - Cincinnati NorthComment on above:Result Comment: LDL ATP III CLASSIFICATION LDL less than 100 mg/dl Optimal LDL 100-129 mg/dl Near or above optimal LDL 130-159 Borderline high LDL 160-189 High LDL greater than 189 mg/dl Very HighPerformed By: #### TSH reflex FT4, CMP, LDLD, LIPD #### [facility] [address], [place] [id number] Panelon 75-24-7500Vdwgfbadjnx [Mass/Vol]407 mg/dLHigh 125-200NoRegency Hospital Cleveland WestComment on above:Result Comment: Low risk < 200mg/dL Borderline risk 201-239 mg/dl High risk > or equal to 240Performed By: #### TSH reflex FT4, CMP, LDLD, LIPD #### [facility] [address], [place] [id number] in HDL [Mass/Vol]33 mg/dLLow>40NoRegency Hospital Cleveland WestComsinai-grace hospital on above:Result Comment: High Cardiovascular Risk HDL <40 mg/dL Low Cardiovascular Risk HDL > or equal to 60 mg/dlPerformed By: #### TSH reflex FT4, CMP, LDLD, LIPD #### [facility] [address] [facility] [place] [id number] in VLDL [Mass/Vol]215 mg/dLWestern Reserve Hospital SpecialistComment on above:Performed By: #### TSH reflex FT4, CMP, LDLD, LIPD #### [facility] [address], [place] [id number].total/Cholesterol in HDL [Mass ratio]12 {ratio} NormalSelect Medical Specialty Hospital - Cincinnati NorthComment on above:Performed By: #### TSH reflex FT4, CMP, LDLD, LIPD #### [facility] [address], [place] [id number] REFLEXLDL-DIRECTNoDayton Children's Hospital Specialist Comment on above:Performed By: #### TSH reflex FT4, CMP, LDLD, LIPD #### [facility] [address], [place] [id number] [Mass/Vol]1074 mg/fVCduz39-012QphtspckRegency Hospital Cleveland WestComment on above:Result Comment: TRIG ATPIII CLASSIFICATIONS TRIG less than 150 mg/dl Normal TRIG 150-199 mg/dl Borderline High TRIG 200-500 mg/dl High TRIG greather than 500 mg/dl Very HighPerformed By: #### TSH reflex FT4, CMP, LDLD, LIPD #### [facility] [address] [place], [place] [id number] (with Creat)on 13-42-5995yHZG95.2 mg/dLNoMercy Health Clermont HospitalComment on above:Result Comment: mALB reference range not established.Performed By: #### mALBC #### [facility] [address] [place], [place] [id number]/Creat Dxpmq1410.4 MCG/MGNoDayton Children's Hospital SpecialistComment on above:Result Comment: The ADA (Diabetes Care 26:S94-S98, 2003) defines abnormalities in Albumin excretionas follows: Category Result (MCG/MG Creatinine) Normal <30 Microalbuminuria 30-299 Clinical Albuminuria > or = 300Performed By: #### mALBC #### [facility] [address], [place] [id number] mg/rOEwx62-157Mobvfwae [place] [facility] SpecialistComment on above:Performed By: #### mALBC #### [facility] [address] [place] [id number] SCREEN (MEDICARE)on 66-97-2748SLLL5.010 ng/mLHigh<4.000 [facility] SpecialistComment on above:Result Comment: PSA Test Method: ECLIA/Lio e 601Performed By: #### PSA MC #### [facility] [address] [place], [place] [id number] w/ Reflex to Free T4on 53-24-0804GWU7.400 uIU/mLNormal 0.400-4.500[facility] SpecialistComment on above:Performed By: #### TSH reflex FT4, CMP, LDLD, LIPD #### [facility] [address] [place], [place] [id number] Vital Signs Date TimeVital SignValuePerforming TjyoxrqrmTeqvpzdt72-05-4654 13:19-0400Body ojwtju935.8 cmDafrances Becker II Work Phone: [phone]10-23-2025 13:19-0400 Body mass index (BMI) [Ratio]33.8 kg/v9Ulemwv Becker II Work Phone: [phone]10-23-2025 13:19-0400 Body kqpgnotwguu66.9 [degF]Yassine Becker II Work Phone: [phone] [address]10-23-2025 13:19-0400 Body .1 kgDachuyel Becker II Work Phone: [phone]10-23-2025 13:19-0400 Diastolic blood jcseoeto08 mm[Hg]Yassine Becker II Work Phone: [phone]10-23-2025 13:19-0400 Heart rate82 /Dawsonel Becker II Work Phone: [phone]10-23-2025 13:19-0400 Respiratory rate18 /minDloraineel Becker II Work Phone: [facility]10-23-2025 13:19-0400 SaO2% (BldA) [Mass fraction]98 %Yassine Eugenio II Work Phone: [facility]10-23-2025 13:19-0400 Systolic blood xfjxmyba886 mm[Hg]Yassine Becker II Work Phone: [facility]10-13-2025 13:53-0400 Body .8 Jae Bullock MD Work Phone: [address] [employer], [place] [address]Jkqevfqatr74-08-4667 13:53-0400Body mass index (BMI) [Ratio]33.43 kg/g7OumcdLena Bullock MD Work Phone: [phone] [address] [employer] [address]Jpitkkvlau19-38-8612 13:53-0400Body cjqjgo678.69 kgLena Bullock MD Work Phone: [phone] [employer] [place] [address]Njvsqxzmfi78-48-8854 13:53-0400Diastolic blood mm[Hg]Lena Bullock MD Work Phone: [address] [employer] [place] [address]Gmfgxvbqvl41-68-6028 13:53-0400Heart rate65 /min Lena Bullock MD Work Phone: [address] [employer] [address]Olgdqzuoon46-28-9076 13:53-0400Respiratory rate16 /minLena Bullock MD Work Phone: [phone] [place], [place] [address]Zfvcnecykt25-33-1127 13:53-1779AoY5% (BldA) [Mass fraction]97 %Lena Bullock MD Work Phone: [facility] HospitalZsljrhhbaj84-22-6952 13:53-0400Systolic blood wyyjxbqt677 mm[Hg]Lena Bullock MD Work Phone: [address] [employer] [address]Rkfipsibzq49-31-6604 14:12-0400Body fwyufr133.8 cmGuerline MCKENNA Work Phone: [facility] HospitalUpmnugihdq89-92-3215 14:12-0400Body mass index (BMI) [Ratio]36.33 kg/m7Tsoks Hemmer PA Work Phone: [facility] HospitalByxsjsweov59-87-2861 14:12-0400Body yufqwq558.85 kgGuerline Hemmer PA Work Phone: [facility] HospitalGcxsriuvjk16-14-9335 14:12-0400Diastolic blood mm[Hg]Guerline Hemmer PA Work Phone: [facility] HospitalPyykatdnlb34-22-3689 14:12-0Heart rate55 /min Guerline Hemmer PA Work Phone: [facility] HospitalXcfdcnwzgh71-79-4396 14:12-0400Respiratory rate16 /minGuerline Hemmer PA Work Phone: [facility] HospitalFeqeftxoqa76-32-5635 14:125293UbR5% (BldA) [Mass fraction]96 %Guerline Hemmer PA Work Phone: [facility] HospitalGhhkeqszqa23-87-5436 14:12-0400Systolic blood xjioorft665 mm[Hg]Guerline Hemmer PA Work Phone: [facility] HospitalWvnudugwla96-05-6328 10:01-0400Body qninih842.8 cmSkhadar Merchant DIE TRIMMER Work Phone: [facility] HospitalZmluxomvxr87-44-5702 10:01-0400Body mass index (BMI) [Ratio]34.15 kg/x6XekfyaVianney Merchant DIE TRIMMER Work Phone: [facility] HospitalEiwsalqynl20-93-5556 10:01-0400Body .96 kgVianney Merchant DIE TRIMMER Work Phone: [phone] [place], [place] [address]Egqjeldevo98-12-6644 10:01-0400Diastolic blood cktuhvsy10 mm[Hg]Vianney Merchant DIE TRIMMER Work Phone: [facility] HospitalCohdjygeam17-06-6843 10:01-0400Heart rate68 /min Vianney Merchant DIE TRIMMER Work Phone: [facility] HospitalOstepotntv22-59-5615 10:01-0400Respiratory rate17 /minSkhadar Merchant DIE TRIMMER Work Phone: [facility] HospitalCxgllahnfd33-16-9310 10:01-7046AqO5% (BldA) [Mass fraction]97 %Vianney Merchant DIE TRIMMER Work Phone: [facility] HospitalAshnvrotvi51-00-5585 10:01-0400Systolic blood fudgdbxr608 mm[Hg]Vianney Merchant DIE TRIMMER Work Phone: [facility] HospitalUtooaqdcaj39-38-9608 13:37-0400Body lxaqgm218.8 cmAyeny Bullock MD Work Phone: [facility] HospitalWnfbkeftcv07-67-7275 13:37-0400Body mass index (BMI) [Ratio]34.15 kg/u8SciwtLena Bullock MD Work Phone: [phone] HospitalKxskjjxbys73-69-7979 13:37-0400Body efltqj004.96 kgLena Bullock MD Work Phone: [facility] HospitalKnosbavspg75-22-7710 13:37-0400Diastolic blood mm[Hg]Lena Bullock MD Work Phone: [phone] HospitalNcnljezxxn72-67-8857 13:37-0400Heart rate71 /min Lena Bullock MD Work Phone: [phone] HospitalWzokfgxuub39-78-8161 13:37-0400Respiratory rate16 /minLena Bullock MD Work Phone: [facility] HospitalOfhiozxcmg78-06-7226 13:37-4692MmL0% (BldA) [Mass fraction]94 %Lena Bullock MD Work Phone: [phone] HospitalKoenlzwexh24-36-8626 13:37-0400Systolic blood xmjyzoho994 mm[Hg]Lena Bullock MD Work Phone: [phone] HospitalZbnnhujdbh39-21-2004 09:57-0400Body bcaere396.8 cmDimple Sahni DIE TRIMMER Work Phone: [facility] HospitalSpguarwuid29-19-9451 09:57-0400Body mass index (BMI) [Ratio]33.72 kg/m2Dimple Sahni DIE TRIMMER Work Phone: [facility] HospitalDltgzqizaw83-76-8877 09:57-0400Body .59 kgDimple Sahni DIE TRIMMER Work Phone: [facility] HospitalFapqlkfupx51-14-0195 09:57-0400Diastolic blood dnmvjfyi27 mm[Hg]Dimple Sahni DIE TRIMMER Work Phone: [facility] HospitalQyslsnlrkc07-42-3446 09:57-0400Heart rate67 /min Dimple Sahni DIE TRIMMER Work Phone: [facility] HospitalRekprsudhw17-81-4459 09:57-0400Respiratory rate17 /minDimple Sahni DIE TRIMMER Work Phone: [facility] HospitalPdsacevnzx02-86-8934 09:57-3285BhU3% (BldA) [Mass fraction]98 %Dmiple Sahni DIE TRIMMER Work Phone: [facility] HospitalEdqypleznu30-34-6887 09:57-0400Systolic blood kevzvzkm845 mm[Hg]Dimple Sahni DIE TRIMMER Work Phone: [phone] [place], [place] [address]Ppbegwowbj04-70-9159 09:57-0400Body fskjoh491.8 cmDimple Sahni DIE TRIMMER Work Phone: [phone]-[address] [place], [place] [address]Owgwpsfvcq73-88-1420 09:57-0400Body mass index (BMI) [Ratio]34.87 kg/m2Dimple Sahni DIE TRIMMER Work Phone: 1([phone] [place], [place] [address]Lgowwgocgd37-32-2658 09:57-0400Body gcfujn723.22 kgDimple Sahni DIE TRIMMER Work Phone: [facility] HospitalAqmqrwmkpa63-22-8763 09:57-0400Diastolic blood oojaowfn97 mm[Hg]Dimple Sahni DIE TRIMMER Work Phone: [facility] HospitalVtjxqtgqsk07-96-7716 09:57-0400Heart rate64 /min Dimple Sahni DIE TRIMMER Work Phone: [facility] HospitalHywrcooycs65-20-1000 09:57-0400Respiratory rate16 /minDimple Babatunde DIE TRIMMER Work Phone: [facility] HospitalNroiyyhjbs79-17-2365 09:57-9765XeN2% (BldA) [Mass fraction]97 %Dimple Sahni DIE TRIMMER Work Phone: [facility] HospitalXyibtmixsr31-40-5893 09:57-0400Systolic blood xzhdtehc469 mm[Hg]Dimple Sahni DIE TRIMMER Work Phone: [facility] HospitalSagyvgktmv71-40-7499 08:18-0400Body huetiv111.8 cmDimple Sahni DIE TRIMMER Work Phone: [facility] HospitalLbjfejjwal44-56-2328 08:18-0400Body mass index (BMI) [Ratio]34.29 kg/m2Dimple Sahni DIE TRIMMER Work Phone: [facility] HospitalBrjlliesin86-20-5550 08:18-0400Body kjoclu130.41 kgDimple Sahni DIE TRIMMER Work Phone: [facility] HospitalSrxyavqufk23-94-8398 08:18-0400Diastolic blood wxykpgbp25 mm[Hg]Dimple Sahni DIE TRIMMER Work Phone: [facility] HospitalAqackzrbuw06-16-8055 08:18-0400Heart rate67 /min Dimple Sahni DIE TRIMMER Work Phone: [facility] HospitalWduwvfhlom75-20-8583 08:18-3104CpS7% (BldA) [Mass fraction]97 %Dimple Sahni DIE TRIMMER Work Phone: [facility] HospitalMkbxxlxfow42-31-2048 08:18-0400Systolic blood vkevlcym643 mm[Hg]Dimple Sahni DIE TRIMMER Work Phone: [facility] HospitalDkgbybytsn68-14-1712 13:38-0400Body gjkfpo139.8 Jae Bullock MD Work Phone: [facility] HospitalVwulebokwv74-69-8686 13:38-0400Body mass index (BMI) [Ratio]34.44 kg/c7XictcLena Bullock MD Work Phone: [facility] HospitalKohwcvmjnv99-18-0773 13:38-0400Body msctxe927.86 kgLena Bullock MD Work Phone: [phone] [facility] HospitalWubaensqtc22-13-4473 13:38-0400Diastolic blood yavwjrrw66 mm[Hg]Lena Bullock MD Work Phone: [facility] HospitalCafozqypps03-75-7371 13:38-0400Heart rate62 /min Lena Bullock MD Work Phone: [address] [employer] [place] [address]Ofwdueonkh84-13-1175 13:38-0400Respiratory rate18 /minLena Bullock MD Work Phone: [facility] HospitalMmauwsljjd21-57-7905 13:38-8975UiF1% (BldA) [Mass fraction]97 %Lena Bullock MD Work Phone: [facility] HospitalFqxrumgnne76-45-8497 13:38-0400Systolic blood klymjvto210 mm[Hg]Lena Bullock MD Work Phone: [facility] HospitalLpdigrmtai54-38-5282 11:32-0500Body tvahhh530.3 cmYassine Becker MD Work Phone: [facility] HospitalUtfwsubuvp30-63-0556 11:32-0500Body mass index (BMI) [Ratio]33.67 kg/u4LqvpflYassine Becker MD Work Phone: [facility] HospitalLctkxdjvsc62-89-8746 11:32-0500Body nimfyj399.42 kgYassine Becker MD Work Phone: [facility] HospitalQekoixtzia60-70-4420 11:32-0500Diastolic blood fhbzxzoq10 mm[Hg]Yassine Becker MD Work Phone: [facility] HospitalDustsuyhxz27-40-8150 11:32-0500Heart rate72 /min Yassine Becker MD Work Phone: [facility] HospitalUbmjaghyty21-53-9197 11:32-9146FqW3% (BldA) [Mass fraction]96 %Yassine Becker MD Work Phone: [facility] HospitalBainvgocqq96-43-5370 11:32-0500Systolic blood dugwxfhn885 mm[Hg]Yassine Becker MD Work Phone: [phone] [place], [place] [address]Vdexkdehjv47-47-1532 14:35-0500Body elabvr182.3 cmAyeny Bullock MD Work Phone: [facility] HospitalElxsgobzlf35-93-7456 14:35-0500Body mass index (BMI) [Ratio]34.11 kg/o5PlnwsLena Bullock MD Work Phone: [facility] HospitalBzegvsdmpl27-02-0850 14:35-0500Body wumjia858.78 kgLena Bullock MD Work Phone: [facility] HospitalFdzyovvdvl55-83-7784 14:35-0500Diastolic blood ajxalwya07 mm[Hg]Lena Bullock MD Work Phone: [facility] HospitalDnawejrycx93-51-0760 14:35-0500Heart rate65 /min Lena Bullock MD Work Phone: [facility] HospitalQyisplyzfe36-22-1648 14:35-0500Respiratory rate16 /minLena Bullock MD Work Phone: [facility] HospitalAbztqvlrmp75-24-0206 14:35-0500Systolic blood gkhlzcki284 mm[Hg]Lena Bullock MD Work Phone: [facility] HospitalNenqoxueva01-55-8504 10:22-0400Body osmybv264.8 cmYassine Becker MD Work Phone: [facility] HospitalUoymqqiivi07-81-0148 10:22-0400Body mass index (BMI) [Ratio]33.58 kg/m2PuanzwYassine Becker MD Work Phone: [facility] HospitalEaxzescttm65-02-2456 10:22-0400Body lzylfx042.14 kgYassine Becker MD Work Phone: [facility] HospitalYawkcqrpei86-71-0374 10:22-0400Diastolic blood mm[Hg]Yassine Becker MD Work Phone: [facility] HospitalEqjsafhuon35-15-7065 10:22-0400Heart rate82 /min Yassine Becker MD Work Phone: [facility] HospitalSunxmrznxh12-73-0493 10:22-9068DrN8% (BldA) [Mass fraction]95 %Yassine Becker MD Work Phone: [facility] HospitalTpergnsqou99-06-6320 10:22-0400Systolic blood agnmdumk045 mm[Hg]Yassine Becker MD Work Phone: [facility] HospitalOkrzxdygxc87-03-5517 08:52-0400Blood [facility]08-14-2024 08:52-0400Body nnhtjhocybs85.8 [degF]Betty Lue [facility]08-14-2024 08:52-0400Diastolic blood lokwkcsp84 mm[Hg]Betty Lue [facility]08-14-2024 08:52-0400Heart rate72 /minKathy Lue [facility]08-14-2024 08:52-0400Systolic blood oknzzgym334 mm[Hg]Betty Lue [facility]02-07-2024 10:59-0500Blood Pressure LocationKathy Lue [facility]02-07-2024 10:59-0500Diastolic blood sfxyakme97 mm[Hg]Betty Lue [facility]02-07-2024 10:59-0500Systolic blood zfzuumtd351 mm[Hg]Betty Lue [facility]12-20-2023 09:46-0500Blood Pressure LocationKathy Lue [facility]12-20-2023 09:46-0500Diastolic blood qqicyfiv95 mm[Hg]Betty Lue [facility]12-20-2023 09:46-0500Systolic blood ltjayqwn969 mm[Hg]Betty Lue [facility]04-07-2023 10:00-0400Body gbgojo765.8 Narda Deysiner Other [employer] Other 04-07-2023 10:00-0400Body mass index (BMI) [Ratio] 35.87 kg/m2Ryyeison Scovanner Other [employer] Other 04-07-2023 10:00-0400Body tjjupo106.4 kgRyyeison Scovanner Other [employer] Other 04-07-2023 10:00-0400Diastolic blood uzctcczb41 mm[Hg] Ilan Jaylanisaiah Other [employer] Other 04-07-2023 10:00-0400Systolic blood mm[Hg] Ilan Scisaiah Other [employer] Other 03-16-2023 11:13-0400Diastolic blood mm[Hg] II Yassine Becker Work Phone: [facility]03-16-2023 11:13-0400 Heart rate84 /Natalee Becker Work Phone: [facility]03-16-2023 11:13-0400 Respiratory rate18 /Natalee Yassinemelisa Becker Work Phone: [facility]03-16-2023 11:13-0400 SaO2% (BldA) [Mass fraction]94 %II Yassine Becker Work Phone: [facility]03-16-2023 11:13-0400 Systolic blood mm[Hg]II Yassine Becker Work Phone: [facility]03-16-2023 09:55-0400 Body .8 cmII Yassine Becker Work Phone: [facility]03-16-2023 09:55-0400 Body zsoomackwei66.6 [degF]II Yassine Becker Work Phone: [facility]03-16-2023 09:55-0400 Body flgtli706.2 kgII Yassine Becker Work Phone: [facility]12-13-2022 09:54-0500 Blood Pressure LocationJEBA ALEXANDERRY [facility]12-13-2022 09:54-0500Diastolic blood mytwpvgl61 mm[Hg]GONZALEZ GERMAN [facility]12-13-2022 09:54-0500Heart rate77 /minRIANNNIFER MAXI [facility]12-13-2022 09:54-0500Respiratory rate16 /minRIANNNIFER MAXI [facility]12-13-2022 09:54-0500Systolic blood ymznefug527 mm[Hg]GONZALEZ GERMAN [facility]08-23-2022 09:48-0400Blood Pressure LocationJojesus Oconnor [facility]08-23-2022 09:48-0400 BP/Pulse Patient PositionMahad Oconnor [facility]08-23-2022 09:48-0400 Diastolic blood nctcwrov01 mm[Hg]Mahad Oconnor [facility]08-23-2022 09:48-0400Heart rate60 /minMahad Oconnor [facility]08-23-2022 09:48-0400Mean blood xjlqjnre360 mm[Hg]Mahad Oconnor [facility]08-23-2022 09:48-0400 Respiratory rate18 /minPadminikennediaiden Elvin [facility]08-23-2022 09:48-4652LgC1% (BldA) [Mass fraction]99 %Mahad Oconnor [facility]08-23-2022 09:48-0400 Systolic blood tdytwlwl269 mm[Hg]Mahad Oconnor [address] [place], [place] 5444608-23-2022 09:48-0400Body .52 [degF]Mahad Oconnor [address] [place], [place] 3067308-23-2022 09:36-0400Blood Pressure LocationMahad Oconnor [facility]08-23-2022 09:36-0400 Diastolic blood tytliewt97 mm[Hg]Mahad Oconnor [facility]08-23-2022 09:36-0400Heart rate66 /rajeevMahad Oconnor [facility]08-23-2022 09:36-0400 Respiratory rate16 /minMahad Oocnnor [facility]08-23-2022 09:36-8984UpX0% (BldA) [Mass fraction]96 %Mahad Oconnor [facility]08-23-2022 09:36-0400 Systolic blood etpcmmwe382 mm[Hg]Mahad Oconnor [address] [place], [place] 5444608-23-2022 09:22-0400Blood Pressure LocationMahad Oconnor [facility]08-23-2022 09:22-0400 Diastolic blood vepqasnp647 mm[Hg]Mahad Oconnor [facility]08-23-2022 09:22-0400Heart rate66 /Omid Oconnor [facility]08-23-2022 09:22-0400 Respiratory rate16 /Omid Oconnor [facility]08-23-2022 09:22-0411DjG8% (BldA) [Mass fraction]95 %Mahad Oconnor [facility]08-23-2022 09:22-0400 Systolic blood rvhyfmxs642 mm[Hg]Mahad Davidpaula [facility]08-23-2022 07:00-0400Mean blood ckkgldai823 mm[Hg]Mahad Oconnor [facility]08-23-2022 06:59-0400Body ylubkhsrygz97.88 [degF]Mahad Oconnor [facility]08-23-2022 06:59-0400Mean blood gfllkayu554 mm[Hg]Mahad Oconnor [facility]08-23-2022 06:59-0400 Respiratory rate20 /Omid Oconnor [facility] Encounters Encounter DateEncounter [facility]Care ProviderFacilityStart: 41-49-6807sblrwpwydzdarshana Tysonacility:KATIE BellevueStart: 20-30-4259tdpmlempvuJmitr M. Lue Facility: [place]vueStart: 08-15-2025 End: 82-80-5847fnkjaeopqsJcqdhj Berry II Work Phone: [phone]-Rhpzvkpeu Health [facility] SandStart: 08-15-2025 End: 25-11-1050Saqudbx encounter Francis Whelan MD-[facility] Work Phone: Start: 08-05-2025 End: 29-30-7306Mbjkaw outpatient visit 25 minutesLena Bullock MD Work Phone: [facility] [place] EndocrinologyComment on above:Type 2 diabetes mellitus with hyperglycemia, with long-term current use of insulin (HCC) (Primary Dx); Primary hypertension; Vitamin D deficiency; Insulin long-term use (HCC); Encounter for dietary consultation; Hyperlipemia, mixed; Chronic kidney disease, stage IV (severe) (HCC); Class 1 obesity due to excess calories with serious comorbidity and body mass index (BMI) of 33.0 to 33.9 in adultStart: 08-05-2025 End: 48-15-1611esrwpyswuqRUOMC F SABBAGHNot AvailableStart: 07-25-2025 End: 63-11-2417qnhkherhqnODDERThai Sanchez AvailableStart: 07-22-2025 End: 19-19-5884Qhswopsandi MCKENNA Work Phone: [facility] MedinceStart: 07-22-2025 End: 80-54-8875Xnfbjodoug MCKENNA Work Phone: [facility] MedinceStart: 07-22-2025 End: 78-30-9225Tyjrkv outpatient visit 25 minutesGuerline MCKENNA Work Phone: [facility] MedinceComment on above:Stage 4 chronic kidney disease (HCC) (Primary Dx); Foamy urine; Primary hypertension ; Abdominal distension; Swelling of thigh; Abdominal swelling; Orthopnea; Proteinuria, unspecified type; Microscopic hematuriaStart: 07-22-2025 End: 42-16-0080bgsnpngqcjAFKGHThai Sanchez AvailableStart: 06-20-2025 End: 96-48-8811Ufcmxo outpatient new 30 minutesPaul Carver DPM Work Phone: [facility] CI PODIATRYComment on above:Venous insufficiency (Primary Dx); Diabetes mellitus due to underlying condition with diabetic polyneuropathy, unspecified whether equipment operator intermodal yard insulin use (HCC); Pain due to onychomycosis of toenails of both feetStart: 06-20-2025 End: 17-57-6946nbwhvvbibzKECAPIPZ A BROWNNot AvailableStart: 06-20-2025 End: 20-12-9123Mpzemf flowsheetPaul Carver DPM Work Phone: noMS CI PODIATRYStart: 06-20-2025 End: 85-59-5350Xmnzsz flowsheetPaul Carver DPM Work Phone: noMS CI PODIATRYStart: 06-19-2025 End: 63-02-8549FrfrbnCrtjm M Hemmer PA Work Phone: [facility] MedinceComment on above:Insomnia, unspecified typeStart: 05-28-2025 End: 20-98-3908Grgkbp Dio Merchant DIE TRIMMER Work Phone: [facility] MedinceStart: 05-28-2025 End: 24-22-5518Nilydnsandi Merchant DIE TRIMMER Work Phone: [facility] MedinceStart: 05-28-2025 End: 43-20-7426Cljafw outpatient visit 25 minutesVianney Merchant DIE TRIMMER Work Phone: [facility] MedinceComment on above:Acute left- sided thoracic back pain (Primary Dx); Benign essential hypertension ; Muscle spasmStart: 05-28-2025 End: 53-79-7517vqcvzpkwriFERFZTAyad Adam AvailableStart: 05-06-2025 End: 27-62-6920Qftiyu Eva Bullock MD Work Phone: [facility] ENDOCRINOLOGYStart: 05-06-2025 End: 27-24-2361Vbfqzl flowsAriana Bullock MD Work Phone: noMS ENDOCRINOLOGYStart: 05-06-2025 End: 52-81-3895Kcaqki outpatient visit 25 minutesLena Bullock MD Work Phone: noms ENDOCRINOLOGYComment on above:Type 2 diabetes mellitus with hyperglycemia, with long-term current use of insulin (HCC) (Primary Dx); Primary hypertension ; Vitamin D deficiency; Insulin long-term use (HCC); Encounter for dietary consultation; Hyperlipemia, mixed ; Chronic kidney disease, stage IV (severe) (HCC); Type 2 diabetes mellitus with stage 3b chronic kidney disease, with long-term current use of insulin (HCC)Start: 05-06-2025 End: 36-83-3431lkfdahjcblADFXW F SABBAGHNot AvailableStart: 04-27-2025 End: 40-14-6882NkenvvDattzn B Berry MD Work Phone: [facility] CI FMComment on above:Type 2 diabetes mellitus with stage 3b chronic kidney disease, with long-term current use of insulin (HCC)Start: 04-24-2025 End: 49-17-8321hwgxtpoilnKfztz M. LueFacility:EU BellevueStart: 04-24-2025 End: 15-72-7757Tlhxyod encounter Ermelinda Aguilar [facility] start: 03-21-2025 End: 97-98-9482emarsuyovqQXA C MILLERNot AvailableStart: 03-20-2025 End: 43-38-3026HyydavYower M Hemmer PA Work Phone: [facility] CI FMComment on above:Insomnia, unspecified type Start: 03-07-2025 End: 12-36-3764Mwphsisandi Sahni DIE TRIMMER Work Phone: [facility] CI FMStart: 03-07-2025 End: 34-48-6697Mwomwidoug Sahni DIE TRIMMER Work Phone: [facility] CI FMStart: 03-07-2025 End: 87-91-0155Gseekie encounter procedureDimple Sahni DIE TRIMMER Work Phone: [facility] CI FMComment on above:Medicare annual wellness visit, subsequent (Primary Dx); Insomnia, unspecified type; Type 2 diabetes mellitus with hyperglycemia, with long-term current use of insulin ([facility]); Type 2 diabetes mellitus with stage 3b chronic kidney disease, with long-term current use of insulin ([facility]) ([facility]); Mixed hyperlipidemia ([facility]); Chronic kidney disease, stage 4 (severe) ([facility]); History of tobacco abuse; Osteoporosis due to chronic kidney disease ([facility])Start: 03-07-2025 End: 90-38-8469skjsptugqjPSMZachary Meyers AvailableStart: 02-21-2025 End: 70-55-6824Vtfqye Jennifer Sahni DIE TRIMMER Work Phone: [facility] CI FMStart: 02-21-2025 End: 03-68-4965Cdsqjg Jennifer Sahni DIE TRIMMER Work Phone: [facility] FMStart: 02-21-2025 End: 68-41-6246Girtpb outpatient visit 25 minutesDimple Sahni DIE TRIMMER Work Phone: [facility] FMComment on above:Hypertensive heart and chronic kidney disease without heart failure, with stage 1 through stage 4 ch ronic kidney disease, or unspecified chronic kidney disease (Primary Dx); Localized swelling of both lower legs; Peripheral venous insufficiency; Hypokalemia; Chronic kidney disease, stage 4 (severe) ([facility]); Rheumatoid arthritis, unspecifiedStart: 02-21-2025 End: 19-39-7001ocelrpcykzOAR C MILLERNot AvailableStart: 01-03-2025 End: 79-07-1828Jrokrw outpatient visit 25 minutesDimple Sahni DIE TRIMMER Work Phone: [facility] FMComment on above:Acute serous otitis media of left ear, recurrence not specified (Primary Dx); Ringing in the ear, left; Type 2 diabetes mellitus with diabetic chronic kidney disease (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); Class 1 obesity due to excess calories with serious comorbidity and body mass index (BMI) of 34.0 to 34.9 in adult; Type 2 diabetes mellitus with stage 3b chronic kidney disease, with long-term current use of insulin ([facility]) (CMS/HCC)Start: 12-31-2024 End: 50-08-3334dsssmbdmwpVGRRE F SABBAGHNot AvailableStart: 11-27-2024 End: 48-79-0413yvwfdrrqtqFduqa M. LueFacility:FTMCStart: 11-27-2024 End: 78-23-8865Lja Drop Kyra Aguilar [facility] Start: 11-27-2024 End: 28-57-3751yknlmxxptuOqflz M. LueFacility:EU BellevueStart: 11-27-2024 End: 01-13-9494Xfdzwnr encounter procedureBetty Aguilar [facility] start: 10-11-2024 End: 72-82-0736Zjudjw flowsHeber Becker MD Work Phone: noms CI FMStart: 10-11-2024 End: 44-27-1066Sjkmzi flowsheetYassine Becker MD Work Phone: NOMS CI FMStart: 10-11-2024 End: 11-30-6404Ihuuex outpatient visit 25 minutesYassine Becker MD Work Phone: noms CI FMComment on above:Benign essential hypertension (CMS/HCC) (Primary Dx); Hypertensive heart and chronic kidney disease without heart failure, with stage 1 through stage 4 chronic kidney disease, or unspecified chronic kidney disease (CMS/HCC); Stage 3b chronic kidney disease (HCC) (CMS/HCC); Type 2 diabetes mellitus with stage 3b chronic kidney disease, with long-term current use of insulin (HCC) (CMS/HCC)Start: 10-11-2024 End: 18-02-9480cbpgaekbfdLOIXRF B BERRYNot AvailableStart: 10-04-2024 End: 85-28-6307Mrzugytmx Result EncounterGeneric External Data ProviderNOMS External Department UnsolicitedStart: 10-04-2024 End: 26-55-6742Igrmdvcvu Result EncounterGeneric External Data ProviderNOMS External Department UnsolicitedStart: 52-85-3160fzbnmcwptqWatjs LueFacility:EU BellevueStart: 09-03-2024 End: 23-52-4731Wuohga outpatient visit 25 minutesLena Bullock MD Work Phone: NOMS SH ENDOCRINOLOGYComment on above:Primary hypertension (CMS/HCC) (Primary Dx); Type 2 diabetes mellitus with hyperglycemia, with long-term current use of insulin (CMS/HCC); Vitamin D deficiency; Insulin long-term use (CMS/HCC); Hyperlipemia, mixed (CMS/HCC); Encounter for dietary consultation; Chronic kidney disease, stage IV (severe) (CMS/HCC); Class 1 obesity due to excess calories with serious comorbidity and body mass index (BMI) of 34.0 to 34.9 in adult; Type 2 diabetes mellitus with stage 3b chronic kidney disease, with long-term current use of insulin (HCC) (CMS/HCC)Start: 09-03-2024 End: 48-53-1855lzzifbvxdxZAWPBSandra Gomez AvailableStart: 07-09-2024 End: 77-33-6921Cunbgd flowsheetYassine Becker MD Work Phone: NOMS CI FMStart: 07-09-2024 End: 93-87-5323Nvgibb flowsHeber Becker MD Work Phone: NOMS CI FMStart: 07-09-2024 End: 38-94-3354Zuwfq of hemosiderin, quantYassine Becker MD Work Phone: [facility] Work Phone: Start: 07-09-2024 End: 67-94-3502Jftphar encounter procedureYassine Becker MD Work Phone: NOMS CI FMComment on above:Routine general medical examination at health care facility (Primary Dx); ACP (advance care planning); Type 2 diabetes mellitus with stage 3b chronic kidney disease, with long-term current use of insulin (HCC) ([facility]/HCC); Encounter for screening for malignant neoplasm of colon; Type 2 diabetes mellitus with diabetic chronic kidney disease (HCC) (CMS/HCC); Chronic kidney disease, stage 4 (severe) (CMS/HCC); Bilateral hearing loss, unspecified hearing loss typeStart: 06-26-2024 End: 57-58-2543StjcpaBjtqwKonstantin BUSCH CI FMComment on above:Insomnia, unspecified typeStart: 06-06-2024 End: 41-74-7923xoldvkbcxlQkcfo M. LueFacility:EU BellevueStart: 06-06-2024 End: 18-61-5141Fuyfwtn encounter Ermelinda Aguilar [facility] start: 05-07-2024 End: 72-43-4926Knyfwztpi Result EncounterYassine Becker MD Work Phone: NOEH External Department UnsolicitedStart: 05-07-2024 End: 95-99-7709Raadtczhj Result EncounterYassine Becker MD Work Phone: NOBH External Department UnsolicitedStart: 11-30-2023 End: 62-49-0947Syulqcd encounter procedureAngelitanic Aguilar [facility] start: 10-12-2023 End: 99-14-4942Dumxlqn encounter procedureBetty Aguilar [facility] start: 11-18-0148bqcvjhkwvgCEPWRO BERRYFacility:H1 Start: 01-28-2023 End: 10-42-7439ddiemtmnrjYugf Scovanner Other [place] [employer] Other Start: 49-62-5219Ivwrwv outpatient new 30 minutesRyan DeysinerFPG GastroenterologyStart: 01-17-2023 End: 32-73-6310Esiqrju encounter procedureBetty Aguilar [facility] Start: 01-15-2023 End: 53-39-0058Jarptylaz department patient visitArthhari Jenny Lei [facility]: 01-06-2023 End: 67-78-3214Ztyqeshej department patient visitFilemon Carrizales [facility]: 01-06-2023 End: 47-54-6682Cutbsobfb department patient visitII Yassine Becker Work Phone: [facility] Work Phone: Start: 01-05-2023 End: 45-88-1772Wgm-admission assessmentAngelitanic PringleDevorah Jeff [facility] Start: 01-01-2023 End: 63-47-9804hzxrrwqtzoKKSQNM BERRYFacility:P1Ttpjj: 12-13-2022 End: 83-14-9249jmxycriphrNpouz M LueFacility:[facility] Start: 12-13-2022 End: 82-00-1022zmwtvkggcpYV Daniel Berry Work Phone: [facility] Work Phone: Start: 12-13-2022 End: 77-55-1918Jiqhebg encounter procedureII Yassine Becker Work Phone: [facility] Main [place] Work Phone: Start: 10-05-2022 End: 84-10-7668Cfn Drop offJEBA ALEXANDERRY [facility] Start: 10-05-2022 End: 13-40-5034Iattnsn encounter procedureJENNIFER E MAXI [facility] start: 09-09-2022 End: 28-94-7783tlhxccrxoxHAHMNN B [facility] Hospitaltart: 09-09-2022 End: 59-78-3818Cwtcqekko department patient visitF F [facility]OMPSON HOSPITALEDUIN MOSELEYMiddletown Hospitalbebo [facility] Hospitaltart: 06-15-2022 End: 93-52-8711Uqjeekjys to same day surgery milbridgeMahad Hernandez [facility] Procedures DateProcedureProcedure DetailPerforming ClinicianStart: 45-52-6149Sfhc bld gluc mntr dev cleared fda spec home useLena Bullock MD Work Phone: Start: 31-55-8953Asukb dip stick/tablet rgnt non-auto w/o micrscpGuerline MCEKNNA Work Phone: Start: 29-55-2603Stja bld gluc mntr dev cleared fda spec home useLena Bullock MD Work Phone: Start: 33-09-6811Vjnsfxsfqv glycosylated a1cKitimothy Crump Babatunde DIE TRIMMER Work Phone: Start: 41-28-7207Blctvslnedkpr metabolic panelDimple Crump Babatunde DIE TRIMMER Work Phone: Start: 68-40-2749Xmtm bld gluc mntr dev cleared fda spec home useLena Bullock MD Work Phone: Start: 87-09-0159RY RENAL AND BLADDERGeneric External Data ProviderStart: 94-58-6380Yayq bld gluc mntr dev cleared fda spec home use Lena Bullock MD Work Phone: Start: 20-91-2127Eoqrnkfvid glycosylated t3nOuexxkfrances Becker MD Work Phone: Start: 88-06-6312Tvnvrpphhn examination knee 3 views Yassine Becker MD Work Phone: Start: 73-19-4882XrzmrlomseKbqmp Lue Start: 74-85-7137Tsotizbx tomography of abdomen and pelvis with contrastII Yassine Becker Work Phone: Start: 62-78-0063TM prostate wo conII Yassine Becker Work Phone: Start: 48-40-2323Cxbrztho extraction and insertion of intraocular lensJojesus Oconnor Start: 23-85-0989Sfwswzacvkiuh prostatectomyJELAURIEGRACIELA MAXI Plan of Treatment DateCare ActivityDetailAuthorStart: 05-15-2026Medicare Annual Wellness (AWV) Medicare Annual Wellness (AWV)NOMS HealthcareStart: 11-06-2025 End: 42-02-2389Csqqoqr encounter /14/2026 3:00 PM EST Office Visit NOMYahaira [facility] [address] [place] [address] Lena Bullock MD [address] [place] [address] NOMS [place] EndocrinologyStart: 55-18-1546Urgbdhwmzo A1c measurementDiabetes: Hemoglobin X8WEKZK Healthcare Start: 08-60-6485Hyroavxce for malignant neoplasm of colonNOMT HealthcareStart: 09-12-2025 End: 50-28-5300Mvfnobo encounter yasghwhmi06/20/2025 1:50 PM EST Procedure Visit [facility] [address] [place] [address] Paul Carver, SATURNINO [address] [facility] [address] [place] [address] NOMS GOLD PODIATRYStart: 55-66-7807Kqthpdjx screening Diabetes: Retinopathy ScreeningJORDAN VALLEY [facility] HealthcareStart: 34-74-9814Mfjwtfxteg A1c measurementDiabetes: Hemoglobin B0LUZER HealthcareStart: 08-05-2025 End: 11-49-7683Ynggegb encounter pjbnurpsr52/13/2025 1:50 PM EDT Office Visit [facility] [place] [facility] [address] [place] [phone] Lena Bullock MD [address] [place] [address] NOMYahaira [place] EndocrinologyStart: 07-22-2025 End: 95-79-7788LS Abdomen and Pelvis WO contrastCT abdomen pelvis wo IV contrast Imaging High Priority Stage 4 chronic kidney disease (HCC) Foamy urine Abdominal distension Abdominal swelling Proteinuria, unspecified type Microscopic hematuria Expected: 07/22/2025 (Approximate), Expires: 07/22/2026 [facility] Work Phone: Comment on above:Expected: 07/22/2025 (Approximate), Expires: 07/22/2026Start: 07-22-2025 End: 50-40-4097Blmbbmz encounter xobvztoby41/29/2025 2:00 PM EDT Office Visit NOMYahaira Mackey [facility] [address] [place] [address] Guerline Acuña PA [address] [facility] [address] [place] [address] Amber Braxton MedinceComment on above:ArrivedStart: 09-16-2025Medicare Annual Wellness (AWV)Medicare Annual Wellness (AWV)NOMS HealthcareStart: 78-11-4370Eboni screening for protein Diabetes: Urine Protein ScreeningNOMT HealthcareStart: 32-44-6302Ddjwdwrqz vaccinationNOMS HealthcareStart: 06-20-2025 End: 32-52-7459Yknbyjm encounter procedureNOMS CI PODIATRYComment on above: ArrivedStart: 63-67-3651Tufwperakm A1c measurementDiabetes: Hemoglobin Z8JXRMD HealthcareStart: 05-28-2025 End: 15-03-9494Myoqnrp encounter ahhmshplr94/05/2025 10:00 AM EDT Office Visit NOM[facility] [place] Bra[facility] [address] [facility] [address] [place] [address] Vianney Merchant, DIE TRIMMER [address] [facility] [address] [place] [address] Amber Braxton MedinceComment on above:ArrivedStart: 99-94-6467Btefm screening for proteinDiabetes: Urine Protein ScreeningNOMT HealthcareStart: 05-06-2025 End: 28-53-3470Ddpznug encounter procedureNOMS SH ENDOCRINOLOGYComment on above: Type 2 diabetes mellitus with hyperglycemia, with long-term current use of insulin (HCC)Start: 57-23-2164Xxotjkqiik A1c measurementDiabetes: Hemoglobin A1C NOMS HealthcareStart: 03-21-2025 End: 81-75-5864Lwbdjmxjtcjp / ancillary services managementNOMS FNR CTStart: 03-11-2025 End: 05-60-5679Horbwaa encounter eoyvwlswz33/19/2025 8:40 AM EDT Office Visit [facility] [address] [place] [address] Millie Ghosh, MANUFACTURING TEACHER-[employer]GRATION [employer]AD [address] [place] [address] NOMS SWS DERMStart: 03-07-2025 End: 39-31-9448TS Chest for screening WO contrastCT lung screening low dose Imaging Routine History of tobacco abuse Expected: 03/07/2025, Expires: 0 03/07/2026NOMT HealthcareComment on above:Expected: 03/07/2025, Expires: 03/07/2026Start: 03-07-2025 End: 55-38-2616RAQ Skeletal system Views for bone densityDEXA bone density Imaging Routine History of tobacco abuse Osteoporosis due to chronic kidney disease ([facility]) Expected: 03/07/2025, Expires: 03/07/2026N[facility] Healthcare Comment on above:Expected: 03/07/2025, Expires: 03/07/2026Start: 03-07-2025 End: 81-36-2957Yichj 1996 panel - Serum or PlasmaLipid panel Lab Routine Mixed hyperlipidemia ([facility]) Expected: 03/07/2025 (Approximate), Expires:03/07/2026 [facility] Work Phone: Comment on above:Expected: 03/07/2025 (Approximate), Expires: 03/07/2026Start: 03-07-2025 End: 51-09-4379Faphswo encounter /15/2025 10:00 AM EDT Office Visit NOM[facility] CI FM [address] [facility] [address] [place] [address] Dimple Sahni, DIE TRIMMER [address] [facility] [address] [place] [address] ArrivedNOMS CI FMComment on above:ArrivedStart: 02-21-2025 End: 88-85-6937Pbqskam encounter wlcvdzoka01/01/2025 10:00 AM EDT Office Visit N[facility] CI FM [address] [facility] [address] [place] [address] Dimple Sahni, DIE TRIMMER [address] [facility] [address] [place] [address] ArrivedNOMS CI FMComment on above:ArrivedStart: 12-31-2024 End: 81-55-7874Rkeujdq encounter tpmsxaega33/10/2025 1:40 PM EDT Office Visit [facility] ENDOCRINOLOGY [address] [place] [phone] Lena Bullock MD [address] [place] [address] NOMS ENDOCRINOLOGYStart: 80-58-6583Tqcykjxq screeningDiabetes: Retinopathy ScreeningNOMT HealthcareStart: 12-04-2024 Hemoglobin A1c measurementDiabetes: Hemoglobin E7JUFIN HealthcareStart: 10-11-2024 End: 03-52-2976Gnbluhu encounter hmrfavbom76/19/2024 11:30 AM EST Office Visit N[facility] FM [address] [facility] [address] [place] [address] Yassine Becker MD [address] [facility] [address] [place] [address] ArrivedNOMS CI FMComment on above:ArrivedStart: 10-08-2024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 ACP (advance care planning) Type 2 diabetes mellitus with stage 3b chronic kidney disease, with long-term current use of insulin ([facility]) ([facility]) - POCT Glycated hemoglobin, total Encounter for screening for malignant neoplasm of colon Type 2 diabetes mellitus with diabetic chronic kidney disease (HCC) ([facility]) - Ambulatory referral to Nephrology; Future Chronic kidney disease, stage 4 (severe) ([facility]) - Comprehensive metabolic panel; Future - Ambulatory referral to Nephrology; Future Bilateral hearing loss, unspecified hearing loss type - Ambulatory referral to ENT; Future Orders Placed This Encounter Procedures POCT Glycated hemoglobin, total Follow up in about 4 weeks (around 08/06/2024) for F/U med changes, Test/Lab Review. Electronically signed by Yassine Becker MD on July 09, 2024 documented in this encounterCenterPointe [id number] Hospital Discharge instructions Patient Education 06/06/2024 09:39:28 Benign Prostatic Hyperplasia Benign Prostatic Hyperplasia Benign prostatic hyperplasia (BPH) is an enlarged prostate gland that is caused by the normal agingprocess. The prostate may get bigger as a man gets older. The condition is not caused by cancer. The prostate is a walnut-sized gland that is involved in the production of semen. It is located in front of the rectum and below the bladder. The bladder stores urine. The urethra carries stored urine ou t of the body. An enlarged prostate can press on the urethra. This can make it harder to pass urine. The buildup of urine in the bladder can cause infection. Back pressure and infection may progress to bladder damage and kidney (renal) failure. What are the causes? This condition is part of the normal aging process. However, not all men develop problems from thiscondition. If the prostate enlarges away from the [...] urethra. Follow these instructions at home: Take daxa-ofx-ozybocz and prescription medicines only as told by [...] provider. Document Revised: 04/28/2022 Document Reviewed: 04/28/2022 [employer] Patient Education 2022 [employer]. Follow Up Care 11/30/2023 11:37:34 With:Jeff HILL, LEYLA Turner, URO Address: [address] [place] [phone] When: Unknown [facility] 08-14-2024 NotePatient Education Urology Benign Prostatic Hyperplasia Benign prostatic hyperplasia (BPH) is an enlarged prostate gland that is caused by the normal agingprocess. The prostate may get bigger as a man gets older. The condition is not caused by cancer. The prostate is a walnut-sized gland that is involved in the production of semen. It is located in front of the rectum and below the bladder. The bladder stores urine. The urethra carries stored urine ou t of the body. An enlarged prostate can press on the urethra. This can make it harder to pass urine. The buildup of urine in the bladder can cause infection. Back pressure and infection may progress to bladder damage and kidney (renal) failure. What are the causes? This condition is part of the normal aging process. However, not all men develop problems from thiscondition. If the prostate enlarges away from the [...] urine that may remain in your bladder afteryou finish urinating. ? A digital rectal exam. [...] this procedure, a tool is inserted through theopening at the tip of the penis (urethra). [...] procedure uses radio frequencies to destroy and removea small amount of prostate tissue. ? Interstitial laser coagulation (ILC). This procedure uses a laser to destroy and remove a small amount of prostate tissue. ? Transurethral electrovaporization (TUVP). This procedure uses electrodes to destroy and remove a small amount of prostate tissue. ? Prostatic urethral lift. This procedure inserts an implant to push the lobes of the prostate awayfrom the urethra. Follow these instructions at home: ? Take iirz-hfx-abodgpx and prescription medicines only as told by [...] You develop side effec (more content not included)...[facility]02-07-2024 Hospital Discharge instructions Patient Education 11/30/2023 11:36:11 Erectile Dysfunction Erectile Dysfunction Erectile dysfunction (ED) is the inability to get or keep an erection in order to have sexual intercourse. ED is considered a symptom of an underlying disorder and is not considered a disease. ED mayinclude: Inability to get an erection. Lack of [...] back or pelvic injuries, multiple sclerosis, Parkinson's disease,spinal cord injury, and stroke. Certain medicines, such [...] or the penis may be too curved toallow for intercourse. Never having nighttime or morning [...] penis. During this procedure, a blood vessel froma different part of the body is placed into the penis to allow blood to flow around (bypass) damaged or blocked blood vessels. Lifestyle changes, such as exercising more, losing weight, and quitting smoking. Follow these instructions at home: Medicines Take enyf-vmt-smswwdv and prescription medicines only as told by your health care provider. Do not increase the dosage without first discussing it with your health care provider. If you are using self-injections, do injections as directed by your health care provider. Make sureyou avoid any veins that are on the surface of the penis. After giving an injection, apply pressureto the injection site for 5 minutes. Talk [...] you need help quitting, ask your health careprovider. Before using a vacuum pump, read the instructions that come with the pump and discuss any questionswith your health care provider. Keep all follow-up [...] provider. Document Revised: 01/06/2022 Document Reviewed: 01/06/2022 [employer] Patient Education 2022 [employer]. Follow Up Care 10/12/2023 10:36:39 With:Jeff HILL, Betty Tineo, HARIL, URO Address: [address] [place] [phone] When: Unknown Comments:4-5 mos (new meds) [facility] 12-20-2023 Hospital Discharge instructions Patient Education 10/12/2023 10:28:44 Benign Prostatic Hyperplasia Benign Prostatic Hyperplasia Benign prostatic hyperplasia (BPH) is an enlarged prostate gland that is caused by the normal agingprocess. The prostate may get bigger as a man gets older. The condition is not caused by cancer. The prostate is a walnut-sized gland that is involved in the production of semen. It is located in front of the rectum and below the bladder. The bladder stores urine. The urethra carries stored urine ou t of the body. An enlarged prostate can press on the urethra. This can make it harder to pass urine. The buildup of urine in the bladder can cause infection. Back pressure and infection may progress to bladder damage and kidney (renal) failure. What are the causes? This condition is part of the normal aging process. However, not all men develop problems from thiscondition. If the prostate enlarges away from the [...] urethra. Follow these instructions at home: Take tmpi-mou-hvuclct and prescription medicines only as told by [...] provider. Document Revised: 04/28/2022 Document Reviewed: 04/28/2022 [employer] Patient Education 2022 [employer]. Follow Up Care 01/17/2023 10:19:18 With:Betty Aguilar MD, URL, URO Address: [address] [place] [phone] When: Unknown Comments:1 month [facility]* Encounter Date Diagnosis Assessment Notes Treatment Notes Treatment Clinical Notes Jan, Dysphagia (ICD-10 - R13.10) Patient having dysphagia to solids. Patient denies any hematemisis. Jan,onstipation (ICD-10 - K59.00)Bowel movements are every 2-3 days. Patient to try adding daily probiotics and fiber to daily diet to help relieve constipation. Increase daily water intake. Recommendation also given to utilize MiraLAX as needed however the hope is that lifestyle choices will help this patient with their intermittent constipation Jan,Early satiety (ICD-10 - R68.81) [facility] [employer] [facility] Other 03-27-2023 Evaluation + Plan noteExtracted from:Title: [facility] clinic noteAuthor:Betty Aguilar MDDate:01/17/23 Impression and Plan Assessment and Plan: Diagnosis: Abnormal CT scan (YIU49-SJ R93.89, Discharge, Medical), BPH with obstruction/lower urinary tract symptoms (PDJ54-LB N40.1, Discharge, Medical), Gross hematuria (RVV89-BZ R31.0, Working, Medical), Microhematuria (LCA46-QL R31.29, Discharge, Medical). 67 year old male [...] Future Appointments Appointment Date:06/08/2023 10:45:00 AM Scheduled Provider:Betty Aguilar MD Location:[facility] Appointment Type:URO Office Visit [facility]03-27-2023 Hospital Discharge instructions Patient Education 01/17/2023 10:16:53 [...] Up Care 01/10/2023 10:25:04 With:Betty Aguilar Address: [address] [place] [phone] [employer] ([email or web address]) (1) [facility] [employer], [place] [address] [phone] Business (1) When: Unknown Comments:Office to schedule follow up in 5-6 months with [facility]12-13-2022 Evaluation + Plan note Diagnostic Tests Pending * PSA Free & Total 10/05/22 * Urine Cytology ([facility]) 10/05/22 [facility] 12-13-2022 Hospital Discharge instructions Patient Education [...] Follow these instructions at home: Medicines Take liox-njn-wucznjr and prescription medicines only as told by [...] or the blood stops without treatment. Take efkq-uxa-giihnql and prescription medicines only as told by your health care provider. Drink enough fluid to keep your urine clear or pale yellow. This information is not intended to replace advice given to you by your health care provider. Make sure you discuss any questions you have with your health care provider. Document Released: 10/10/2006 Document Revised: 03/05/2020 Document Reviewed: 11/12/2017 [employer] Patient Education 2020 [employer]. Follow Up Care 09/21/2022 08:21:34 With:[facility] Address: [address] [place] [address] Business (1) When: Unknown Comments:for procedure as scheduled [facility] 08-23-2022 Hospital Discharge instructions Patient Education 06/15/2022 07:49:56 ZAHLER- After Surgery Eye (Custom) [place], [place] Mahad Oconnor D.O. AFTER SURGERY [right [...] Up Care 05/26/2022 11:13:44 With:Mahad Oconnor Address: [place] [phone] Business (1) When:1 to 2 days [facility] No data available for this section [facility] Future Appointments Appointment Date:01/17/2023 09:45:00 AM Scheduled Provider: Location:[facility] Future Appointments Appointment Date:11/30/2023 10:30:00 AM Scheduled Provider:Jeff HILL, Betty Tineo Location:[facility] Appointment Type:URO Office Visit [facility] evaluation + Plan note Future Appointments Appointment Date:06/06/2024 08:45:00 AM Scheduled Provider:Betty Aguilar MD Location:[facility] Appointment Type:URO Office Visit [facility] evaluation + Plan note Future Appointments Appointment Date:12/12/2024 08:45:00 AM Scheduled Provider:Betty Aguilar MD Location:[facility] Appointment Type:URO Office Visit Diagnostic Tests Pending * PSA Free & Total 06/06/24 [facility] evaluation + Plan note Future Appointments Appointment Date:12/12/2024 08:45:00 AM Scheduled Provider:Betty Aguilar MD Location:[facility] Appointment Type:URO Office Visit [facility] evaluation + Plan note Future Appointments Appointment Date:04/17/2026 02:30:00 PM Scheduled Provider: Location:[facility] Appointment Type:URO Nurse Visit Appointment Date:04/23/2026 10:00:00 AM Scheduled Provider:Betty Aguilar MD Location:[facility] Appointment Type:URO Office Visit Future Scheduled Tests Laboratory* PSA Free & Total 04/24/25 [facility] evaluation noteNo assessment information available [facility] Work Phone: Evaluation note* Diagnosis Primary hypertension ([facility])- Primary Unspecified essential hypertension Type 2 diabetes mellitus with hyperglycemia, with long-term current use of insulin ([facility]) Vitamin D deficiency Insulin long-term use ([facility]) Encounter for long-term (current) use of insulin Hyperlipemia, mixed ([facility]) Mixed hyperlipidemia Encounter for dietary consultation Chronic kidney disease, stage IV (severe) ([facility]) Chronic kidney disease, Stage IV (severe) Class 1 obesity due to excess calories with serious comorbidity and body mass index (BMI) of 34.0 to 34.9 in adult Type 2 diabetes mellitus with stage 3b chronic kidney disease, with long-term current use of insulin ([facility]) ([facility]) documented [facility] encounter [facility] Diagnosis Routine general medical examination at health care facility- Primary Routine general medical examination at a health care facility ACP (advance care planning) Other specified counseling Type 2 diabetes mellitus with stage 3b chronic kidney disease, with long-term current use of insulin ([facility]) ([facility]) Encounter for screening for malignant neoplasm of colon Type 2 diabetes mellitus with diabetic chronic kidney disease ([facility]) Chronic kidney disease, stage 4 (severe) ([facility]) Bilateral hearing loss, unspecified hearing loss type documented in this encounter [facility]* Diagnosis Insomnia, unspecified type documented [facility] encounter [facility]* Diagnosis Benign essential hypertension ([facility])- Primary Essential hypertension, benign Hypertensive heart and chronic kidney disease without heart failure, with stage 1 through stage 4 chronic kidney disease, or unspecified chronic kidney disease ([facility]) Stage 3b chronic kidney disease (HCC) ([facility]) Type 2 diabetes mellitus with stage 3b chronic kidney disease, with long-term current use of insulin ([facility]) ([facility]) documented [facility]* Diagnosis Type 2 diabetes mellitus with hyperglycemia, with long-term current use of insulin ([facility])- Primary Primary hypertension ([facility]) Unspecified essential hypertension Vitamin D deficiency Insulin long-term use ([facility]) Encounter for long-term (current) use of insulin Encounter for dietary consultation Hyperlipemia, mixed ([facility]) Mixed hyperlipidemia Class 1 obesity due to excess calories with serious comorbidity and body mass index (BMI) of 34.0 to 34.9 in adult Type 2 diabetes mellitus with stage 3b chronic kidney disease, with long-term current use of insulin ([facility]) ([facility]) [facility]* Diagnosis Acute serous otitis media of left ear, recurrence not specified- Primary Ringing in the ear, left Type 2 diabetes mellitus with diabetic chronic kidney disease ([facility]) Chronic kidney disease, stage 4 (severe) ([facility]) Heart failure, unspecified (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) documented [facility]* Diagnosis Hypertensive heart and chronic kidney disease without heart failure, with stage 1 through stage 4 chronic kidney disease, or unspecified chronic kidney disease- Primary Localized swelling of both lower legs Peripheral venous insufficiency Unspecified venous (peripheral) insufficiency Hypokalemia Hypopotassemia Chronic kidney disease, stage 4 (severe) ([facility]) Rheumatoid arthritis, unspecified documented [facility] encounter [facility]* Diagnosis Medicare annual wellness visit, subsequent- Primary Insomnia, unspecified type Type 2 diabetes mellitus with hyperglycemia, with long-term current use of insulin ([facility]) Type 2 diabetes mellitus with stage 3b chronic kidney disease, with long-term current use of insulin ([facility]) ([facility]) Mixed hyperlipidemia ([facility]) Mixed hyperlipidemia Chronic kidney disease, stage 4 (severe) ([facility]) History of tobacco abuse Osteoporosis due to chronic kidney disease ([facility]) documented [facility] encounter [facility]* Diagnosis Insomnia, unspecified type documented in this encounter [facility]* Diagnosis Type 2 diabetes mellitus with stage 3b chronic kidney disease, with long-term current use of insulin ([facility]) Type 2 diabetes mellitus with hyperglycemia, with long-term current use of insulin ([facility]) documented in this encounter [facility]* Diagnosis Type 2 diabetes mellitus with hyperglycemia, with long-term current use of insulin ([facility])- Primary Primary hypertension Unspecified essential hypertension Vitamin D deficiency Insulin long-term use ([facility]) Encounter for long-term (current) use of insulin Encounter for dietary consultation Hyperlipemia, mixed Mixed hyperlipidemia Chronic kidney disease, stage IV (severe) ([facility]) Chronic kidney disease, Stage IV (severe) Type 2 diabetes mellitus with stage 3b chronic kidney disease, with long-term current use of insulin ([facility]) documented [facility] this encounter [facility]* Diagnosis Acute left-sided thoracic back pain- Primary Benign essential hypertension Essential hypertension, benign Muscle spasm Spasm of muscle documented in this encounter [facility]* Diagnosis Insomnia, unspecified type documented [facility] this encounter [facility]* Diagnosis Venous insufficiency- Primary Unspecified venous (peripheral) insufficiency Diabetes mellitus due to underlying condition with diabetic polyneuropathy, unspecified whether equipment operator intermodal yard insulin use ([facility]) Pain due to onychomycosis of toenails of both feet documented in this encounter [facility]* Diagnosis Stage 4 chronic kidney disease (HCC)- Primary Foamy urine Other nonspecific finding on examination of urine Primary hypertension Unspecified essential hypertension Abdominal distension Flatulence, eructation, and gas pain Swelling of thigh Abdominal swelling Orthopnea Proteinuria, unspecified type Microscopic hematuria documented in this encounter [facility] HealthcareEvaluation note* Diagnosis Type 2 diabetes mellitus with hyperglycemia, with long-term current use of insulin (HCC)- Primary Primary hypertension Unspecified essential hypertension Vitamin D deficiency Insulin long-term use ([facility]) Encounter for long-term (current) use of insulin Encounter for dietary consultation Hyperlipemia, mixed Mixed hyperlipidemia Chronic kidney disease, stage IV (severe) ([facility]) Chronic kidney disease, Stage IV (severe) Class 1 obesity due to excess calories with serious comorbidity and body mass index (BMI) of 33.0 to 33.9 in adult documented in this encounter [facility] HealthcareEvaluation note* Diagnosis Onset Date Resolution Status Admit Date CKD (chronic kidney disease) stage 4, GF R 15-29 ml/min acuteOctober 2024 1:06pmEnlarged prostateacuteOctober 2024 1:06pm Hypertensive chronic kidney disease with stage 1 through stage 4 chronic k[place]ute August 15, 2025 1:06pmProteinuriaacuteOctober 2024 1:06pmSecondary hyperparathyroidismacuteOctober 2024 1:06pmType 2 diabetes mellitus with diabetic chronic kidney diseaseacuteOctober 2024 1:06pm [facility] Work Phone: History general Narrative - Reported* Type Description Date Medical History diabetes mallitus Medical HistoryRedwood Llc [employer] Other Hospital Discharge instructions No data available for this section [facility] No data available for this section [facility] HospitalReason for referral (narrative)* Consultation (Routine) - Pending ReviewSpecialtyDiagnoses / ProceduresReferred By Contact Referred To ContactNephrology Diagnoses Type 2 diabetes mellitus with diabetic chronic kidney disease (CMS/HCC) Chronic kidney disease, stage 4 (severe) ([facility]) Procedures SD OFFICE/OUTPATIENT NEW HIGH [facility] 60 MINUTES Yassine Becker MD [address] [place] [address] Referral IDStatusReasonStart DateExpiration DateVisits RequestedVisits [id number] Review Specialty Services Required * Consultation (Routine) - AuthorizedSpecialtyDiagnoses / ProceduresReferred By ContactReferred To ContactOtolaryngology Diagnoses Bilateral hearing loss, unspecified hearing loss type Procedures SD OFFICE/OUTPATIENT NEW HIGH [facility] 60 MINUTES Yassine Becker MD [address] [facility] [address] [place] [address] Zoey Morales MD [address] [facility] [address] [place] [address] Referral IDStatusReasonStart DateExpiration DateVisits RequestedVisits [id number] Specialty Services Required [facility] HealthcareReason for referral (narrative)No reason for referral information availableOur [facility] Of [facility] Work Phone: Summary Purpose Family History Relationship Condition Age at Onset Recorded Date/T jackie mother Diabetes mellitus Unknown DeceasedUnknown Advance Directives Advance Directive Response Recorded Date/ Time Advance Directives No November 10, 2022 3:10pm Advance Directive Response Recorded Date/ Time Advance Directives No November 10, 2022 4:10pm Chief Complaint and Reason for Visit Chief Complaint r97.20 n40.1 Chief Complaint r97.20 n40.1 cant sleep upper abd pain Chief Complaint Admit Date ckd, proteinuria ref by Guerline Sheth taisha 2024 1:06pm Reason for Visit Admit Date CKD (chronic kidney disease) stage 4, GF R 15-29 ml/min August 15, 2025 1:06pm Enlarged prostate August 15, 2025 1 :06pm Hypertensive chronic kidney disease with stage 1 through stage 4 chronic ki August 15, 2025 1:06pm Proteinuria August 15, 2025 1 :06pm Secondary hyperparathyroidism August 152024 1:06pm Type 2 diabetes mellitus wit h diabetic chronic kidney disease August 15, 2025 1:06pm Additional Source Comments Care Team (unrecognized sect ion and content) Team Status: Inactive Member Role Status Dates Yassine Becker II MD Primary Care Provider Active Janine Carias ProviderActive Team Status: Active Member Role Status Dates Yassine Becker II MD Primary Care Provider Active Team Status: Inactive Member Role Status Dates Yassine Becker II MD Primary Care Provider Active Delia Medina ProviderActiveTeam MemberRelationshipSpecialtyStart DateEnd Date Yassine Becker MD [address] [place] [address] PCP - Humana1 Yassine Beckre MD [address] [place] [address] PCP - GeneralInternal Medicine04/18/23Team MemberRelationshipSpecialtyStart Date End Date Yassine Becker MD [address] [place] [address] PCP - Humana1 Yassine Becker MD [address] [place] [address] PCP - GeneralInternal Medicine04/18/23Team MemberRelationshipSpecialtyStart Date End Date Yassine Becker MD [address] [place] [address] PCP - Humana1 Yassine Becker MD [address] [place] [address] PCP - GeneralInternal Medicine04/18/23Team MemberRelationshipSpecialtyStart Date End Date Yassine Becker MD [address] [place] [address] PCP - Human Yassine Becker MD [address] [place] [address] PCP - GeneralInternal Medicine04/18/23Team MemberRelationshipSpecialtyStart Date End Date Yassine Becker MD [address] [place] [address] PCP - Human Yassine Becker MD [address] [place] [address] PCP - GeneralInternal Medicine04/18/23Team MemberRelationshipSpecialtyStart Date End Date Yassine Becker MD [address] [place] [address] PCP - [place] [address] Yassine Becker MD [address] [place] [address] PCP - GeneralInternal Medicine04/18/23Te MemberRelationshipSpecialtyStart Date End Date Yassine Becker MD [address] [place] [address] PCP - Human Yassine Becker MD [address] [place] [address] PCP - GeneralInternal Medicine04/18/23Team MemberRelationshipSpecialtyStart Date End Date Yassine Becker MD [address] [place] [address] PCP - Human Yassine Becker MD [address] [place] [address] PCP - GeneralInternal Medicine04/18/23Team MemberRelationshipSpecialtyStart Date End Date Yassine Becker MD [address] [place] [address] PCP - Human Yassine Becker MD [address] [place] [address] PCP - GeneralInternal Medicine04/18/23Team MemberRelationshipSpecialtyStart Date End Date Yassine Becker MD [address] [place] [address] PCP - Human Yassine Becker MD [address] [place] [address] PCP - GeneralInternal Medicine04/18/23Team MemberRelationshipSpecialtyStart Date End Date Yassine Becker MD [address] [place] [address] PCP - Human Yassine Becker MD [address] [place] [address] PCP - GeneralInternal Medicine04/18/23Team MemberRelationshipSpecialtyStart Date End Date Yassine Becker MD [address] [place] [address] PCP - Humana1 Yassine Becker MD [address] [place] [address] PCP - GeneralInternal Medicine04/18/23Team MemberRelationshipSpecialtyStart Date End Date Yassine Becker MD [address] [place] [address] PCP - Humana1 Yassine Becker MD [address] [place] [address] PCP - GeneralInternal Medicine04/18/23Team MemberRelationshipSpecialtyStart Date End Date Yassine Becker MD [address] [place] [address] PCP - Humana1 Yassine Becker MD [address] [place] [address] PCP - GeneralInternal Medicine04/18/23Team MemberRelationshipSpecialtyStart Date End Date Yassine Becker MD [address] [place] [address] PCP - Humana1 Yassine Becker MD [address] [place] [address] PCP - GeneralInternal Medicine04/18/23Team MemberRelationshipSpecialtyStart Date End Date Yassine Becker MD [address] [place] [address] PCP - Humana1 Yassine Becker MD [address] [place] [address] PCP - GeneralInternal Medicine04/18/23Team MemberRelationshipSpecialtyStart Date End Date Yassine Becker MD [address] [place] [address] PCP - Humana1 Yassine Becker MD [address] [place] [address] PCP - GeneralInternal Medicine04/18/23Team MemberRelationshipSpecialtyStart Date End Date Yassine Becker MD [address] [place] [address] PCP - GeneralInternal Medicine04/18/23 Dimple Sahni, DIE TRIMMER [address] [place] [address] PCP - Humana1Team MemberRelationshipSpecialtyStart DateEnd Date Yassine Becker MD [address] [place] [address] PCP - GeneralInternal Medicine04/18/23 Dimple Sahni, GRAY [address] [place] [address] PCP - Humana1Team MemberRelationshipSpecialtyStart DateEnd Date Yassine Becker MD [address] [place] [address] PCP - GeneralInternal Medicine04/18/23 Dimple Sahni, DIE TRIMMER [address] [facility] [address] [place] [address] PCP - [place] [address] Team Status: Active Member Role/Relationship Status Dates Yassine Becekr II MD Primary Care Provider Active Team Status: Inactive Member Role/Relationship Status Dates Yassine Becker II MD Primary Care Provider Active Start: August 15, 2025 End: August 15bdtaz Whelan MDAttending ProviderActiveStart: August 15, 2025 End: August 15, 2025Team MemberRelationshipSpecialtyStart DateEnd Date Yassine Becker MD [address] [facility] [address] [place] [address] [facility] - [facility] Cent[facility]04/18/23 Dimple Sahni, DIE TRIMMER [address] [facility] [address] [place] [address] PCP - [place] [address]Team MemberRelationshipSpecialtyStart DateEnd Date Yassine Becker MD [address] [facility] [address] [place] [address] PCP - [facility] Centernal Medicine04/18/23 Dimple Sahni, DIE TRIMMER [address] [facility] [address] [place] [address] PCP - [place] [address] (unrecognized sect ion and content) No Status Records FoundNo Status Records FoundNo Status Records FoundNo Status Records FoundNo Status Records FoundNo Status Records FoundNo Status Records FoundNo Status Records FoundNo Status Records Found INFORMATION SOURCE (unrecogn ized section and content) DATE CREATED AUTHOR 09/12/2022 [facility] DATE CREATED AUTHOR AUTHOR'S ORGANIZ ATION 09/15/2022 [facility] DATE CREATED AUTHOR AUTHOR'S ORGANIZ ATION 12/22/2022 [facility] [employer] DATE CREATED AUTHOR AUTHOR'S ORGANIZ ATION 01/27/2023 [facility] DATE CREATED AUTHOR AUTHOR'S ORGANIZ ATION 03/09/2023 [facility] DATE CREATED AUTHOR AUTHOR'S ORGANIZ ATION 04/26/2025 [facility] DATE CREATED AUTHOR AUTHOR'S ORGANIZ ATION 07/30/2025 [facility] DATE CREATED AUTHOR AUTHOR'S ORGANIZ ATION 08/06/2025 [facility] EPIC Goals (unrecognized section and content) Goals may be documented in a n alternate section REASON FOR VISIT (unrecogniz ed section and content) ReasonCommentsDiabetesFollow-upReasonCommentsMedicare Annual Wellness Visit SubsequentMed RefillAmbien--stalint fremontReasonOnset DateCommentsMed Refill 4ReasonCommentsHypertensionReasonCommentsDiabetesReasonCommentsHeadache ReasonCommentsMed Refill FOR RECORDS PERTAINING TO PATIENTS WHO ARE [...] BE BASED ON THE PRIMARY CLINICAL RECORDS. [email or web address] provides no warranty or guarantee of the accuracy or completeness of information in this document.
[2025-09-02 13:50] LABS: Glucose Urine UA 100 mg/dL (NEGATIVE)
[2025-09-02 14:03] LABS: Hematocrit 28.9 % (42.0-54.0); Hemoglobin 9.4 g/dL (14.0-18.0); Mean Corpuscular HGB Conc 32.5 g/dL (29.9-35.2); Mean Corpuscular Hemoglobin 28.1 pg (25.9-34.0); Mean Corpuscular Volume 86.3 fL (80.0-94.0); Platelet Count 289 10^3/uL (150-450); Red Blood Count 3.35 10^6/uL (4.70-6.10); White Blood Count 10.5 10^3/uL (4.0-11.0)
[2025-09-02 14:39] LABS: Cast Seen? NONE SEEN #/LPF (NONE SEEN); Crystals Seen? None Seen #/HPF (None Seen)
[2025-09-02 14:50] LABS: Protein Creatinine Ratio Urine 7.58; Total Protein Urine Random 479.1 mg/dL (<=11.9)
[2025-09-02 15:49] LABS: Albumin Level 2.5 g/dL (3.4-5.0); Anion Gap 16.4; Blood Urea Nitrogen 72.0 mg/dL (7.0-18.0); Calcium 7.5 mg/dL (8.5-10.1); Carbon Dioxide 19.6 mmol/L (21.0-32.0); Chloride 111 mmol/L (98-107); Estimated GFR (African America 13 (>=60 mL/min/1.73m^2); Estimated GFR (Non-African Ame 11 (>=60 mL/min/1.73m^2); Glucose 146 mg/dL (74-106); Magnesium 1.6 mg/dL (1.8-2.4); Potassium 4.0 mmol/L (3.5-5.1); Sodium 143 mmol/L (136-145); Uric Acid 7.5 mg/dL (3.5-7.2)
[2025-09-02 15:52] LABS: Iron 34.0 ug/dL (65.0-175.0); Percent Iron Saturation 20.4 %; Total Iron Binding Capacity 167.0 ug/dL (250.0-450.0)
[2025-09-02 16:20] LABS: Ferritin 267.0 ng/mL (26.0-388.0)
[2025-09-04 16:11] LABS: Immunofixation, Urine Comment: (.)
== END 2025-09-02 13:16 | disposition home or self-care (01) ==
LOC: LAB 13:17
PROVIDERS: PCP Internal Medicine; Visit Provider Internal Medicine
DX: I12.9 Hypertensive chronic kidney disease with stage 1 through stage 4 chronic kidney disease, or unspecified chronic kidney disease (principal); N18.4 Chronic kidney disease, stage 4 (severe); E11.22 Type 2 diabetes mellitus with diabetic chronic kidney disease; R80.9 Proteinuria, unspecified; N25.81 Secondary hyperparathyroidism of renal origin; N40.0 Benign prostatic hyperplasia without lower urinary tract symptoms
CPT/HCPCS: 36415; 80069; 81001; 82306; 82570; 82728; 82784; 83521; 83540; 83550; 83735; 83970; 84155; 84156; 84165; 84166; 84550; 85027; 86334; 86335